=== PATIENT | male | born 1980 | race Caucasian/White ===

== ENCOUNTER → 2020-01-26 14:44 | Outpatient (BNVA) | payer OTHER, SELFPAY | PROVIDERS: Visit Provider Physician Assistant Medical | DX: Z13.89 Encounter for screening for other disorder (principal) | CPT/HCPCS: 99213 ==

== ENCOUNTER → 2020-02-23 14:45 | Outpatient (BNVA) | payer OTHER, SELFPAY | PROVIDERS: PCP Family Medicine; Visit Provider Physician Assistant Medical | DX: M54.42 Lumbago with sciatica, left side (principal) | CPT/HCPCS: 99213 ==

== ENCOUNTER 2020-02-26 09:47 | Outpatient (REF) | payer OTHER, SELFPAY ==
[2020-02-26 11:23] LABS: Creatinine Urine 46.12 mg/dL; Microalbum/Creatinine Ratio Ur 86.7 ug/mg cr
[2020-02-26 11:37] LABS: Anion Gap 12 (12-20); Blood Urea Nitrogen 15 mg/dL (9-16); Calcium 9.1 mg/dL (8.4-10.2); Carbon Dioxide 29 mmol/L (22-29); Chloride 99 mmol/L (96-108); Cholesterol 180 mg/dL; Estimated Glomerular Filt Rate > 60; Glucose Random 236 mg/dL (60-115); HDL Cholesterol 30 mg/dL; Potassium 5.3 mmol/l (3.3-5.1); Sodium 135 mmol/L (135-145); Triglycerides 471 mg/dL
[2020-02-27 12:52] LABS: LDL Cholesterol Direct 89 mg/dL (<100)
== END 2020-02-26 09:48 | disposition home or self-care (01) ==
LOC: HO.WFDLDS 09:47
PROVIDERS: Visit Provider Family Medicine
DX: E78.2 Mixed hyperlipidemia (principal); I10 Essential (primary) hypertension
CPT/HCPCS: 80048; 80061; 82043; 83721

== ENCOUNTER 2020-03-08 09:33 | Outpatient (REF) | payer OTHER, SELFPAY ==
[2020-03-08 11:19] LABS: Anion Gap 14 (12-20); Blood Urea Nitrogen 15 mg/dL (9-16); Calcium 8.9 mg/dL (8.4-10.2); Carbon Dioxide 29 mmol/L (22-29); Chloride 98 mmol/L (96-108); Estimated Glomerular Filt Rate > 60; Glucose Fasting 197 mg/dL (60-99); Potassium 4.7 mmol/l (3.3-5.1); Sodium 136 mmol/L (135-145)
== END 2020-03-08 09:34 | disposition home or self-care (01) ==
LOC: HO.WFDLDS 09:33
PROVIDERS: Visit Provider Family Medicine
DX: E11.65 Type 2 diabetes mellitus with hyperglycemia (principal)
CPT/HCPCS: 80048

== ENCOUNTER → 2020-04-11 14:52 | Outpatient (BNVA) | payer OTHER, SELFPAY | PROVIDERS: PCP Family Medicine; Visit Provider Physician Assistant Medical | DX: M54.16 Radiculopathy, lumbar region (principal) | CPT/HCPCS: 99213 ==

== ENCOUNTER 2020-07-03 11:45 | Outpatient (REF) | payer OTHER, SELFPAY ==
--- NOTE | ~2020-07-03 | XR_ITS ---
EXAMINATION: XR HIP, LEFT CLINICAL INFORMATION: Left hip pain COMPARISON: None TECHNIQUE: Frontal view pelvis and 2 views left hip are obtained for 3 views. FINDINGS: There is no fracture, dislocation, destructive process. The SI joints and pubis are unremarkable. There is no hip joint narrowing or erosive change. There are changes which may suggest underlying neoplastic skeletal hyperostosis with risk rating from the iliac crests, superior lateral acetabular, and superior left greater trochanter. The acetabular changes may place patient at risk for femoral acetabular impingement. XR/XR hip LT w PEL1V IMPRESSION: 1. Scattered whiskering pelvis and hips which may suggest underlying diffuse idiopathic skeletal hyperostosis. 2. Spurring superior lateral acetabular may place patient at risk for femoral acetabular impingement, greater on left.
== END 2020-07-03 11:46 | disposition home or self-care (01) ==
LOC: HO.XRAY 11:45
PROVIDERS: PCP Family Medicine; Visit Provider Family Medicine
DX: M25.552 Pain in left hip (principal)
CPT/HCPCS: 73502

== ENCOUNTER → 2020-07-05 11:00 | Outpatient (BNVA) | payer OTHER, SELFPAY | PROVIDERS: PCP Family Medicine; Visit Provider Physician Assistant Medical | DX: M54.16 Radiculopathy, lumbar region (principal); S30.0XXD Contusion of lower back and pelvis, subsequent encounter; S70.01XD Contusion of right hip, subsequent encounter; W18.30XD Fall on same level, unspecified, subsequent encounter | CPT/HCPCS: 99213 ==

== ENCOUNTER → 2020-07-26 12:13 | Outpatient (BNVA) | payer OTHER, SELFPAY | PROVIDERS: PCP Family Medicine; Visit Provider Physician Assistant Medical | DX: M79.605 Pain in left leg (principal); S34.21XD Injury of nerve root of lumbar spine, subsequent encounter; X58.XXXD Exposure to other specified factors, subsequent encounter | CPT/HCPCS: 99213 ==

== ENCOUNTER → 2020-09-25 10:09 | Outpatient (BNVA) | payer OTHER, SELFPAY | PROVIDERS: PCP Family Medicine; Visit Provider Physician Assistant Medical | DX: M54.5 Low back pain (principal); M54.16 Radiculopathy, lumbar region | CPT/HCPCS: 99213 ==

== ENCOUNTER → 2020-11-22 09:25 | Outpatient (BNVA) | payer OTHER, SELFPAY | PROVIDERS: PCP Family Medicine; Visit Provider Physician Assistant Medical | DX: S34.21XD Injury of nerve root of lumbar spine, subsequent encounter (principal); X58.XXXD Exposure to other specified factors, subsequent encounter; M54.17 Radiculopathy, lumbosacral region | CPT/HCPCS: 99213 ==

== ENCOUNTER → 2021-01-22 09:16 | Outpatient (BNVA) | payer OTHER, SELFPAY | PROVIDERS: PCP Family Medicine; Visit Provider Physician Assistant Medical | DX: S34.21XD Injury of nerve root of lumbar spine, subsequent encounter (principal); X58.XXXD Exposure to other specified factors, subsequent encounter; M54.10 Radiculopathy, site unspecified | CPT/HCPCS: 99213 ==

== ENCOUNTER 2021-01-31 08:50 | Outpatient (REF) | payer OTHER, SELFPAY ==
[2021-01-31 11:03] LABS: Estimated Average Glucose 174 mg/dL; Hemoglobin A1c % 7.7 %
[2021-01-31 11:04] LABS: Alanine Aminotransferase 75 U/L (0-40); Albumin Level 4.2 g/dL (3.5-5.0); Alkaline Phosphatase 46 U/L (39-117); Anion Gap 13 (12-20); Aspartate Amino Transferase 64 U/L (5-37); Bilirubin Total 0.7 mg/dL (0.0-1.0); Blood Urea Nitrogen 11 mg/dL (9-16); Calcium 9.6 mg/dL (8.4-10.2); Carbon Dioxide 27 mmol/L (22-29); Chloride 102 mmol/L (96-108); Estimated Glomerular Filt Rate > 60; Glucose Fasting 272 mg/dL (60-99); Potassium 4.4 mmol/L (3.3-5.1); Sodium 138 mmol/L (135-145)
[2021-01-31 11:28] LABS: Microalbum/Creatinine Ratio Ur 34.5 ug/mg cr
== END 2021-01-31 08:51 | disposition home or self-care (01) ==
LOC: HO.WFDLDS 08:50
PROVIDERS: Visit Provider Family Medicine
DX: Z00.00 Encounter for general adult medical examination without abnormal findings (principal); R73.01 Impaired fasting glucose; I10 Essential (primary) hypertension; L60.0 Ingrowing nail; E11.9 Type 2 diabetes mellitus without complications
CPT/HCPCS: 36415; 80053; 82043; 83036

== ENCOUNTER 2021-02-06 07:54 | Outpatient (REF) | payer OTHER, SELFPAY ==
--- NOTE | 2021-02-06 08:15 | EMG_ITS ---
Bilateral tibial and peroneal motor studies were performed. Bilateral sural and superficial peroneal studies were performed. Tibial H-reflexes were obtained and paraspinal muscles were tested with a needle. 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 MD WENDIE Hilliard/GARCÍA / [id number]
== END 2021-02-06 07:55 | disposition home or self-care (01) ==
LOC: HO.NEURO 07:54
PROVIDERS: PCP Family Medicine; Visit Provider Family Medicine
DX: M54.16 Radiculopathy, lumbar region (principal)
CPT/HCPCS: 95886; 95911

== ENCOUNTER → 2021-02-19 08:43 | Outpatient (BNVA) | payer OTHER, SELFPAY | PROVIDERS: PCP Family Medicine; Visit Provider Physician Assistant Medical | DX: S34.21XD Injury of nerve root of lumbar spine, subsequent encounter (principal); X58.XXXD Exposure to other specified factors, subsequent encounter; M54.42 Lumbago with sciatica, left side | CPT/HCPCS: 99213 ==

== ENCOUNTER 2021-06-27 11:54 | Outpatient (REF) | payer OTHER, SELFPAY ==
[2021-06-27 13:48] LABS: Alanine Aminotransferase 76 U/L (0-40); Albumin Level 4.4 g/dL (3.5-5.0); Alkaline Phosphatase 54 U/L (39-117); Anion Gap 12 (12-20); Aspartate Amino Transferase 54 U/L (5-37); Bilirubin Total 1.1 mg/dL (0.0-1.0); Blood Urea Nitrogen 13 mg/dL (9-16); Calcium 10.5 mg/dL (8.4-10.2); Carbon Dioxide 31 mmol/L (22-29); Chloride 100 mmol/L (96-108); Estimated Glomerular Filt Rate > 60; Glucose Random 256 mg/dL (60-115); Potassium 4.4 mmol/L (3.3-5.1); Sodium 139 mmol/L (135-145); Total Protein 7.5 g/dL (6.5-8.0)
[2021-06-27 14:07] LABS: Prostate Specific Antigen Scr 0.27 ng/mL (<0.05-4.0)
== END 2021-06-27 11:55 | disposition home or self-care (01) ==
LOC: HO.WFDLDS 11:54
PROVIDERS: Visit Provider Family Medicine
DX: Z12.5 Encounter for screening for malignant neoplasm of prostate (principal); R74.8 Abnormal levels of other serum enzymes
CPT/HCPCS: 36415; 80053; 84153

== ENCOUNTER → 2021-07-10 13:52 | Outpatient (BNVA) | payer OTHER, SELFPAY | PROVIDERS: PCP Family Medicine; Referring Provider Family Medicine; Visit Provider Physician Assistant | DX: Z13.89 Encounter for screening for other disorder (principal) ==

== ENCOUNTER → 2021-07-15 09:36 | Outpatient (BNVA) | payer OTHER, SELFPAY | PROVIDERS: PCP Family Medicine; Referring Provider Family Medicine; Visit Provider Physician Assistant Surgical | DX: E66.01 Morbid (severe) obesity due to excess calories (principal); Z68.41 Body mass index [BMI] 40.0-44.9, adult | CPT/HCPCS: 99202 ==

== ENCOUNTER 2021-07-18 08:20 | Outpatient (REF) | payer OTHER, SELFPAY ==
--- NOTE | ~2021-07-18 | FL_ITS ---
EXAMINATION: XR FLUOROSCOPY UPPER GI WITH AIR CLINICAL INFORMATION: Morbid/severe obesity due to excess calories. COMPARISON: None TECHNIQUE: Routine upper GI air-contrast study in upright and lying position. FINDINGS: Following oral administration of thick barium and effervescent granules there is normal propagation of bolus from the oral cavity through the pharynx, esophagus into stomach without obstruction, narrowing or stricture. The course, caliber and peristalsis of the stomach, duodenal bulb and the sweep are normal. There are multiple small erosive changes seen within the stomach suspicious for hyperacidity. The mucosal pattern of the duodenal bulb and the sweep is normal. No gastroesophageal reflux or hiatal hernia seen. FLUOROSCOPY TIME: 1.5 minutes DOSE AREA PRODUCT: 48.996 uGy-m2 (microgray-meter squared) FL/FL upper GI w air IMPRESSION: Findings suspicious of gastric erosions throughout the stomach. No duodenal ulceration seen. No gastroesophageal reflux or hiatal hernia.
--- NOTE | ~2021-07-18 | XR_ITS ---
EXAMINATION: XR CHEST CLINICAL INFORMATION: Morbid/severe obesity. COMPARISON: None TECHNIQUE: 2 views of the chest were obtained. FINDINGS: No significant abnormality is noted involving the heart, lungs, mediastinum, bony thorax or soft tissues. XR/XR chest 2V IMPRESSION: Unremarkable chest examination.
== END 2021-07-18 08:21 | disposition home or self-care (01) ==
LOC: HO.XRAY 08:20
PROVIDERS: Visit Provider Surgery
DX: E66.01 Morbid (severe) obesity due to excess calories (principal)
CPT/HCPCS: 71046; 74246

== ENCOUNTER 2021-07-23 09:13 | Outpatient (REF) | payer OTHER, SELFPAY ==
--- NOTE | ~2021-07-23 | US_ITS ---
EXAMINATION: US COMPLETE ABDOMEN WITH LIVER ELASTOGRAPHY CLINICAL INFORMATION: Morbid/severe obesity due to excess calories. COMPARISON: None. TECHNIQUE: Real-time imaging of the abdominal viscera. Noninvasive ultrasound liver fibrosis assessment is performed using Lilia ElastPQ point quantification shear wave elastography (2D-SWE) with a C5-2 MHz transducer. Multiple elastography samples are obtained. FINDINGS: PANCREAS: The pancreas is obscured by overlying gas. ABDOMINAL AORTA: The proximal, middle, and distal aortic segments are normal in caliber. INFERIOR VENA CAVA: The IVC is obscured by overlying gas. LIVER: The liver demonstrates normal size, contour and increased echogenicity. No focal lesion or intrahepatic biliary duct dilatation. The right lobe measures 1.57 cm in length. The left lobe is suboptimally visualized due to overlying gas. It measures 0.40 cm in length. Portal flow is hepatopedal. Shear wave liver elastography median stiffness is 1.57 m/s (reference: normal median stiffness is 1.3 m/s or less). IQR/median stiffness to assess sampling precision is 0.40 (reference: good quality data set is IQR/median stiffness of 0.15 or less). GALLBLADDER: Normal. The gallbladder is physiologically distended without evidence of stones, sludge, polyps, wall thickening or pericholecystic fluid. COMMON BILE DUCT: Normal in caliber measuring 0.5 cm in diameter. RIGHT KIDNEY: There is a dromedary hump along the lateral cortex. No hydronephrosis. No renal calculi or focal parenchymal lesions. The kidney measures 13.3 cm in maximum dimension. LEFT KIDNEY: Normal. No hydronephrosis. No renal calculi or focal parenchymal lesions. The kidney measures 13.4 cm in maximum dimension. SPLEEN: Normal. The spleen measures 15.8 cm in maximum dimension. FREE FLUID: None. US/US abdomen comp w elastography IMPRESSION: 1. Hepatic steatosis without focal lesion. 2. Liver elastography: Median liver stiffness 1.57 cm/second corresponding to cACLD ruled out. REFERENCE: Society of Radiologists in Ultrasound Liver Stiffness Thresholds (2019): LIVER STIFFNESS THRESHOLDS: *Liver Stiffness equal or less than 1.3 m/s: High probability of being normal. *Liver Stiffness less than 1.7 m/s: In the absence of other known clinical signs, rules out compensated advanced chronic liver disease. *Liver Stiffness 1.7-2.1 m/s: Suggestive of compensated advanced chronic liver disease but need further test for confirmation. *Liver Stiffness over 2.1 m/s: Rules in compensated advanced chronic liver disease. *Liver Stiffness over 2.4 m/s: Suggestive of clinically significant portal hypertension. QUALITY OF DATA SET: *IQR/Median value equal or less than 0.15 implies a quality data set. *IQR/Median value over 0.15 implies a poor quality data set. SIGNIFICANT CHANGE FROM PRIOR EXAM: Significant change if liver stiffness measurement is 10% or greater from prior exam. OTHER CONSIDERATIONS: The stage of liver fibrosis may be overestimated in the setting of acute hepatitis, liver inflammation, elevated liver function tests, hepatic vascular congestion, obstructive cholestasis, non-fasting state, and infiltrative diseases such as amyloidosis and lymphoma. In some patients with NAFLD, the liver stiffness thresholds for compensated advanced chronic liver disease may be lower. In causes other than viral hepatitis and NAFLD, liver stiffness thresholds are not well established.
--- NOTE | 2021-07-23 10:39 | ECG_ITS ---
Test Reason : E66.91 Blood Pressure : / mmHG Vent. Rate : 074 BPM Atrial Rate : 074 BPM P-R Int : 162 ms QRS Dur : 116 ms QT Int : 406 ms P-R-T Axes : 046 046 072 degrees QTc Int : 450 ms Normal sinus rhythm Nonspecific T wave abnormality Abnormal ECG No previous ECGs available Referred By: Momo Orosco Electronically Signed By:FERMIN ENCINAS
[2021-07-23 11:02] LABS: MANUAL DIFF FLAG NO
[2021-07-23 11:13] LABS: Basophils Absolute Auto 0.1 X10*3/uL (0.0-0.2); Basophils Percent Auto 0.6 % (0-2); Eosinophils Absolute Auto 0.2 X10*3/uL (0.0-0.4); Eosinophils Percent Auto 1.7 % (0-4); Hematocrit 45.9 % (42.0-52.0); Hemoglobin 15.5 g/dl (14.0-18.0); Imm Gran Abs Auto 0.01 X10*3/uL (0.00-0.03); Imm Gran Pct Auto 0.1 % (0.0-0.4); Lymphocytes Percent Auto 23.7 % (20-40); Mean Corpuscular HGB Conc 33.8 g/dl (31.0-36.0); Mean Corpuscular Hemoglobin 31.2 pg (27.0-33.0); Mean Corpuscular Volume 92.4 fL (80.0-98.0); Mean Platelet Volume 10.1 fL (9.4-12.4); Monocytes Absolute Auto 0.7 X10*3/uL (0.1-1.2); Monocytes Percent Auto 7.9 % (2-11); Neutrophils Absolute Auto 5.7 x10*3/uL (2.0-8.3); Platelet Count 208 X10*3/uL (160-400); Red Blood Count 4.97 X10*6/uL (4.60-5.80); Red Cell Distribution Width 13.2 % (11.0-16.0); White Blood Count 8.6 X10*3/uL (4.8-10.8)
[2021-07-23 12:44] LABS: Ferritin 341 ng/mL (20-250); TSH reflex Free T4 1.55 uIU/mL (0.32-4.0); Vitamin D 25-OH Total 34.3 ng/mL (>30)
[2021-07-23 12:50] LABS: Folate 17.2 ng/mL (> or = 4.0); Vitamin B12 503 pg/mL (200-900)
[2021-07-23 12:55] LABS: Estimated Average Glucose 148 mg/dL; Hemoglobin A1c % 6.8 %
[2021-07-23 13:10] LABS: Alanine Aminotransferase 109 U/L (0-40); Albumin Level 4.7 g/dL (3.5-5.0); Alkaline Phosphatase 50 U/L (39-117); Anion Gap 15 (12-20); Aspartate Amino Transferase 77 U/L (5-37); Bilirubin Total 1.6 mg/dL (0.0-1.0); Blood Urea Nitrogen 18 mg/dL (9-16); C Reactive Protein 0.39 mg/dL (< or = 0.50); Calcium 10.7 mg/dL (8.4-10.2); Carbon Dioxide 26 mmol/L (22-29); Chloride 103 mmol/L (96-108); Cholesterol 183 mg/dL; Estimated Glomerular Filt Rate > 60; Glucose Random 149 mg/dL (60-115); HDL Cholesterol 29 mg/dL; Iron 124 mcg/dL (45-160); LDL Cholesterol Calculated 92 mg/dl; Percent Iron Saturation 32 % (15-50); Potassium 4.9 mmol/L (3.3-5.1); Sodium 139 mmol/L (135-145); Total Iron Binding Capacity 383 mcg/dL (228-428); Triglycerides 310 mg/dL; Unsaturated Iron Binding 259 ug/dL
[2021-07-24 12:06] LABS: Calcium (PTHI) 10.5 mg/dL (8.6-10.3); PTHI 30 pg/mL (16-77)
[2021-07-27 13:05] LABS: Vitamin B1 12 nmol/L (8-30)
[2021-07-28 15:57] LABS: Zinc 87 mcg/dL (60-130)
[2021-07-29 00:57] LABS: Vitamin A 61 mcg/dL (38-98)
== END 2021-07-23 09:14 | disposition home or self-care (01) ==
LOC: HO.US 09:13
PROVIDERS: Absent Provider Physician Assistant Surgical; PCP Family Medicine; Visit Provider Family Medicine
DX: E66.01 Morbid (severe) obesity due to excess calories (principal)
CPT/HCPCS: 36415; 76705; 76981; 80053; 80061; 82306; 82607; 82728; 82746; 83036; 83540; 83970; 84425; 84443; 84590; 84630; 85025; 86140; 93005

== ENCOUNTER 2021-07-24 14:32 | Day surgery (SDC) | payer OTHER, SELFPAY ==
--- NOTE | 2021-07-23 19:46 | MHC.SHP ---
Pre-Procedural Eval Section A Date of Service: 07/23/21 The patient is an INPATIENT: No The History & Physical has been completed within 30 days and I have reviewed it.: Yes Section B Chief Complaint: Gastritis without bleeding Relevant Family History (Specify if Yes): No Relevant Social History: None Present Medications: None Medical History: No relevant PMH History of Previous Operations: No relevant previous surgery Allergies: Allergies Allergy/AdvReac Type Severity Reaction Status Date / Time No Known Allergies Allergy Verified 07/15/21 09:44 Review of Systems Sugical H&P ROS: Negative: Constitution, Cardiovascular, Respiratory, Neurological, Psychiatric, Hem-Onc, Allergic/Immunologic, Gastrointestinal, Genitourinary, Musculoskeletal, Integumentary, Endocrine and Eyes/Ears/Nose/Throat Exam Surgical H&P Exam: Normal: HEENT, Normal: Heart, Normal: Lungs, Normal: Extremities, Normal: Abdomen, Normal: Skin and Normal: Neurological Plan Diagnosis/Plan: Unchanged (EGD to assess the abnormal findings of recent UGI. Risks of bleeding and perforation were discussed with the patient. He is in agreement with the plan.) I have reviewed the history and physical and performed a pertinent physical examination on my patient. No changes have occurred unless specified.
--- NOTE | 2021-07-24 13:22 | PM.OP ---
Brief Operative Note Date of Service: 07/24/21 Pre-op diagnosis: Abnormal UGI, gastric erosions Post-op diagnosis: same Procedure: PROCEDURE DATE: 07/24/2021 PREOPERATIVE DIAGNOSIS: Abnormal UGI, gastric erosions POSTOPERATIVE DIAGNOSIS: ?Same as above. 1) small hiatal hernia, 2) no erosions PROCEDURE: Towsymey-[id number]-dbwjamokvrmh with biopsies Surgeon: ?Red Correa M.D.. Ph.D. Teletype Clerk: None ? Anesthesia: IV sedation Estimated blood loss: ?Minimal FINDINGS AND PROCEDURE: ? OPERATIVE INDICATIONS: ?The patient is a 41 year old male who is evaluated for bariatric surgery. During his preoperative work-up an UGI was performed which was suggestive of multiple gastric erosions. Based on this information I recommended an upper endoscopy to evaluate the findings of the UGI. Risks and complications of the surgery were discussed with the patient in advance particularly the possibility of perforation or bleeding that may require surgical intervention. The patient understood the risks and was in agreement with the plan. ? PROCEDURE: After informed consent was obtained by the patient, the patient was ?transferred to the Operating Room and was placed in the supine position.? After successful induction of IV sedation, a mouth block was inserted and the patient was placed in the left lateral decubitus position. An upper endoscopy was performed next, the oropharynx and esophagus appeared within the normal limits. There was a small 1-2cm hiatal hernia. The z-line was smooth. Two biopsies were obtained from the distal esohagus 2-3 cm proximal to the GE junction and from the GE junction. The stomach was entered and it appeared to be of normal size. There was no gastritis. Retroflexion was performed and the gastric fundus was normal. A biopsy was obtained from the gastric fundus. There was no stricture or ulcer. Biopsy was also obtained from the distal antrum. No significant bleeding was noted from any of the biopsy sites. The scope was then advanced into the duodenum which appeared to be normal as well. No erosions were noted anywhere. At that point the duodenum ?and the sleeve were decompressed and the scope was withdrawn from the patient's mouth. The patient extubated and was transferred in stable condition to the Recovery Room for further care. I was present and performed all steps of the procedure. There were no residents to assist with this case. Red Correa M.D., Ph.D. Surgeon: Franky Correa MD Anesthesia: MAC Was an Teletype Clerk used for this Procedure?: No Estimated blood loss (mL): 0 IV fluids (mL): 400 Urine output (mL): 0 (No Mercer to record) Pathology: other (1) GEJ x2, distal esophagus x2, gastric fundus x1, antrum x1) Condition: stable Disposition: PACU
[2021-07-24 14:53] VITALS: BP 128/80; PULSE 86; RESP 18; TEMP 36.1; O2SAT 96; BMI 41.1
[2021-07-24] MEDS: Lactated Ringers 1,000 ML 80 ML IVCONT (15:07)
[2021-07-24 15:49] LABS: Glucose, Whole Blood 115 mg/dL (60-115)
[2021-07-24 16:18] VITALS: BP 99/59; PULSE 81; RESP 20; TEMP 36.5; O2SAT 98
[2021-07-24 16:35] VITALS: BP 111/70; PULSE 74; RESP 20; TEMP 36.5; O2SAT 95
== END 2021-07-24 16:52 | disposition home or self-care (01) ==
LOC: HO.SSS 14:33
PROVIDERS: PCP Family Medicine; Visit Provider Surgery
PROC: 0DJ08ZZ Inspection of Upper Intestinal Tract, Via Natural or Artificial Opening Endoscopic (ICD-10-PCS; CPT 43235; principal; 2021-07-24 15:30)
DX: K29.70 Gastritis, unspecified, without bleeding (principal); K44.9 Diaphragmatic hernia without obstruction or gangrene; E66.01 Morbid (severe) obesity due to excess calories; Z68.41 Body mass index [BMI] 40.0-44.9, adult; Z83.3 Family history of diabetes mellitus; F17.290 Nicotine dependence, other tobacco product, uncomplicated
CPT/HCPCS: 43239; 82947; 88305; 88342; 90791

== ENCOUNTER → 2021-08-04 07:59 | Outpatient (BNVA) | payer OTHER, SELFPAY | PROVIDERS: PCP Family Medicine; Visit Provider Dietitian, Registered | DX: E66.01 Morbid (severe) obesity due to excess calories (principal); E11.9 Type 2 diabetes mellitus without complications | CPT/HCPCS: 97802 ==

== ENCOUNTER → 2021-08-12 13:30 | Outpatient (BNVA) | payer OTHER, SELFPAY | PROVIDERS: PCP Family Medicine; Visit Provider Counselor Mental Health | DX: F50.81 Binge eating disorder (principal); F33.9 Major depressive disorder, recurrent, unspecified; E66.01 Morbid (severe) obesity due to excess calories | CPT/HCPCS: 90834 ==

== ENCOUNTER → 2021-08-25 08:18 | Outpatient (BNVA) | payer OTHER, SELFPAY | PROVIDERS: PCP Family Medicine; Referring Provider Physician Assistant Surgical; Visit Provider Dietitian, Registered | DX: E66.9 Obesity, unspecified (principal); Z68.39 Body mass index [BMI] 39.0-39.9, adult; Z71.3 Dietary counseling and surveillance | CPT/HCPCS: 97803 ==

== ENCOUNTER → 2021-08-27 10:30 | Outpatient (BNVA) | payer OTHER, SELFPAY | PROVIDERS: PCP Family Medicine; Visit Provider Counselor Mental Health | DX: F50.81 Binge eating disorder (principal); F33.9 Major depressive disorder, recurrent, unspecified; E66.01 Morbid (severe) obesity due to excess calories | CPT/HCPCS: 90834 ==

== ENCOUNTER 2021-09-09 18:30 | Outpatient (REF) | payer OTHER, SELFPAY | END 2021-09-09 18:31 | disposition home or self-care (01) | LOC: HO.LNP 18:30 | PROVIDERS: Visit Provider Family Medicine | DX: Z20.822 Contact with and (suspected) exposure to COVID-19 (principal); J06.9 Acute upper respiratory infection, unspecified | CPT/HCPCS: U0003; U0005 ==

== ENCOUNTER → 2021-09-10 10:38 | Outpatient (BNVA) | payer OTHER, SELFPAY | PROVIDERS: PCP Family Medicine; Visit Provider Counselor Mental Health | DX: F33.9 Major depressive disorder, recurrent, unspecified (principal); E66.01 Morbid (severe) obesity due to excess calories | CPT/HCPCS: 90834 ==

== ENCOUNTER → 2021-09-15 08:15 | Outpatient (BNVA) | payer OTHER, SELFPAY | PROVIDERS: PCP Family Medicine; Visit Provider Surgery | DX: Z13.89 Encounter for screening for other disorder (principal) ==

== ENCOUNTER → 2021-09-24 10:30 | Outpatient (BNVA) | payer OTHER, SELFPAY | PROVIDERS: PCP Family Medicine; Visit Provider Counselor Mental Health | DX: F50.81 Binge eating disorder (principal); F33.9 Major depressive disorder, recurrent, unspecified; E66.01 Morbid (severe) obesity due to excess calories | CPT/HCPCS: 90834 ==

== ENCOUNTER → 2021-10-08 10:00 | Outpatient (BNVA) | payer OTHER, SELFPAY | PROVIDERS: PCP Family Medicine; Visit Provider Counselor Mental Health | DX: F50.81 Binge eating disorder (principal); F33.9 Major depressive disorder, recurrent, unspecified; E66.01 Morbid (severe) obesity due to excess calories | CPT/HCPCS: 90834 ==

== ENCOUNTER → 2021-10-22 10:30 | Outpatient (BNVA) | payer OTHER, SELFPAY | PROVIDERS: PCP Family Medicine; Visit Provider Counselor Mental Health | DX: F50.81 Binge eating disorder (principal); F33.9 Major depressive disorder, recurrent, unspecified; E66.01 Morbid (severe) obesity due to excess calories | CPT/HCPCS: 90834 ==

== ENCOUNTER 2021-10-31 | Outpatient (REF) | payer OTHER, SELFPAY ==
[2021-10-28 08:55] LABS: MANUAL DIFF FLAG NO
[2021-10-28 09:17] LABS: Basophils Percent Auto 0.4 % (0-2); Eosinophils Absolute Auto 0.1 X10*3/uL (0.0-0.4); Eosinophils Percent Auto 1.3 % (0-4); Hematocrit 44.7 % (42.0-52.0); Hemoglobin 14.9 g/dl (14.0-18.0); Imm Gran Abs Auto 0.02 X10*3/uL (0.00-0.03); Imm Gran Pct Auto 0.3 % (0.0-0.4); Lymphocytes Absolute Auto 2.4 X10*3/uL (1.2-4.9); Lymphocytes Percent Auto 33.9 % (20-40); Mean Corpuscular HGB Conc 33.3 g/dl (31.0-36.0); Mean Corpuscular Hemoglobin 30.8 pg (27.0-33.0); Mean Corpuscular Volume 92.5 fL (80.0-98.0); Mean Platelet Volume 10.1 fL (9.4-12.4); Monocytes Absolute Auto 0.6 X10*3/uL (0.1-1.2); Monocytes Percent Auto 7.9 % (2-11); Neutrophils Percent Auto 56.2 % (45-73); Platelet Count 211 X10*3/uL (160-400); Red Blood Count 4.83 X10*6/uL (4.60-5.80); Red Cell Distribution Width 12.9 % (11.0-16.0); White Blood Count 7.1 X10*3/uL (4.8-10.8)
[2021-10-28 09:22] LABS: Prothrombin Time 11.7 SEC (10.0-13.1)
[2021-10-28 09:24] LABS: Partial Thromboplastin Time 43.4 SEC (24.1-38.0)
[2021-10-28 09:33] LABS: Estimated Average Glucose 103 mg/dL; Hemoglobin A1c % 5.2 %
[2021-10-28 09:47] LABS: Alanine Aminotransferase 22 U/L (0-40); Albumin Level 4.8 g/dL (3.5-5.0); Alkaline Phosphatase 47 U/L (39-117); Anion Gap 12 (12-20); Aspartate Amino Transferase 19 U/L (5-37); Bilirubin Total 0.9 mg/dL (0.0-1.0); Blood Urea Nitrogen 25 mg/dL (9-16); C Reactive Protein 0.21 mg/dL (< or = 0.50); Calcium 9.9 mg/dL (8.4-10.2); Carbon Dioxide 28 mmol/L (22-29); Chloride 103 mmol/L (96-108); Cholesterol 176 mg/dL; Estimated Glomerular Filt Rate > 60; Glucose Random 113 mg/dL (60-115); HDL Cholesterol 27 mg/dL; LDL Cholesterol Calculated 110 mg/dl; Potassium 5.3 mmol/L (3.3-5.1); Sodium 138 mmol/L (135-145); Triglycerides 198 mg/dL
[2021-10-28 10:13] LABS: TSH reflex Free T4 2.22 uIU/mL (0.32-4.0)
[2021-10-28 10:45] LABS: Insulin 15 uU/mL (2-29)
[2021-10-28 16:11] VITALS: BMI 38.0
--- NOTE | 2021-10-29 | ECG_ITS ---
Test Reason : PRE-OP Blood Pressure : / mmHG Vent. Rate : 071 BPM Atrial Rate : 071 BPM P-R Int : 166 ms QRS Dur : 114 ms QT Int : 400 ms P-R-T Axes : 040 041 051 degrees QTc Int : 434 ms Normal sinus rhythm Nonspecific T wave abnormality Abnormal ECG When compared with ECG of 23-JUL-2021 10:42, No significant change was found Referred By: Marge Rain Electronically Signed By:Juancho Borrego
--- NOTE | 2021-10-29 13:47 | P.CONAN_ITS ---
HPI - Anesthesia Eval Consult details Narrative: 41yo M for Gastrectomy Sleeve PMFSH Active Problems Active Problems: All Active Problems (Updated 10/28/21 @ 16:20 by Teetee Richardson, RN) Annual physical exam (Acute) Essential hypertension (Acute) Obesity (Acute) BMI greater than 40 (Acute) Elevated triglycerides with high cholesterol (Acute) Low HDL (under 40) (Acute) Diabetes type 2, uncontrolled (Acute) Back pain with left-sided sciatica (Acute) Seborrheic dermatitis of scalp (Acute) Diabetes type 2, controlled (Acute) Left hip pain (Acute) Ingrown toenail (Acute) Anxiety (Acute) Elevated liver enzymes (Acute) GERD (gastroesophageal reflux disease) (Acute) Screening for prostate cancer (Acute) Morbid obesity (Acute) Binge-eating disorder, moderate (Acute) Major depressive disorder, recurrent, unspecified (Acute) Neuropathy (Acute) Hyperlipidemia (Acute) Past Medical History Medical History (Updated 10/29/21 @ 13:48 by Marge Rain NP) Anxiety Depression Diabetes type 2, uncontrolled Essential hypertension Hiatal hernia Hx of renal calculi Hyperlipidemia Low back pain Neuropathy Family History Family History (Updated 10/21/21 @ 09:16 by Frieda Dennison) Mother Diabetes Kidney problem Carpal tunnel syndrome Chronic knee pain after total replacement of knee joint Depression Father No problems noted. Brother Depression Family history of problems with anesthesia: No Surgical History Surgical History (Updated 10/28/21 @ 16:09 by Teetee Richardson, RED) History of esophagogastroduodenoscopy (EGD) History of Problems with Anesthesia: No Social History Social History Housing: Apartment Are you a primary healthcare technician to a significant other at home: No Do you presently have visiting nurse or other home services: No Alcohol intake: current Alcohol intake frequency: a few times a week Patient Tobacco Use Status: Former Tobacco user Quit Date: 2013 Tobacco use type: Cigarette Years Smoked: since ' e-Cigarette/Vaping Use: Never Used Second Hand Smoke Exposure: No service: Yes Current occupational status: employed Current occupational exposures/hazards: No Cognitive needs: No Hearing needs: No Vision needs: No Narrative Narrative: No recent illness No CP/SOB with exercise >4 mets Meds Allergies Allergy/AdvReac Type Severity Reaction Status Date / Time No Known Allergies Allergy Verified 10/28/21 16:10 Exam Exam Date and Time: October 29, 2021 1347 Height,Weight and Vital Signs: Height 6 ft 4 in Weight 141.974 kg Pertinent Lab Results Pertinent Lab Results: Laboratory Tests 10/28/21 10/28/21 10/28/21 08:50 08:54 08:54 WBC 7.1 RBC 4.83 Hgb 14.9 Hct 44.7 MCV 92.5 MCH 30.8 MCHC 33.3 RDW 12.9 Plt Count 211 MPV 10.1 Immature Gran % (Auto) 0.3 Neut % (Auto) 56.2 Lymph % (Auto) 33.9 [place] % (Auto) 7.9 Eos % (Auto) 1.3 Baso % (Auto) 0.4 Lymph # (Auto) 2.4 [place] # (Auto) 0.6 Eos # (Auto) 0.1 Baso # (Auto) 0.0 Abs Immat Gran (auto) 0.02 Absolute Neuts (auto) 4.0 Absolute Nucleated RBC 0.000 Nucleated RBC % (auto) 0.0 PT 11.7 INR 1.0 APTT 43.4 H Sodium Potassium Chloride Carbon Dioxide Anion Gap BUN Creatinine Estim Creat Clear Calc Estimated GFR Random Glucose Estimat Average Glucose Hemoglobin A1c % Insulin Level Calcium Total Bilirubin AST ALT Alkaline Phosphatase C-Reactive Protein Total Protein Albumin Triglycerides Cholesterol LDL Cholesterol, Calc HDL Cholesterol TSH Blood Type A Positive Antibody Screen NEGATIVE 10/28/21 10/28/21 08:54 08:54 WBC RBC Hgb Hct MCV MCH MCHC RDW Plt Count MPV Immature Gran % (Auto) Neut % (Auto) Lymph % (Auto) [place] % (Auto) Eos % (Auto) Baso % (Auto) Lymph # (Auto) [place] # (Auto) Eos # (Auto) Baso # (Auto) Abs Immat Gran (auto) Absolute Neuts (auto) Absolute Nucleated RBC Nucleated RBC % (auto) PT INR APTT Sodium 138 Potassium 5.3 H Chloride 103 Carbon Dioxide 28 Anion Gap 12 BUN 25 H Creatinine 1.07 Estim Creat Clear Calc TNP Estimated GFR > 60 Random Glucose 113 Estimat Average Glucose 103 Hemoglobin A1c % 5.2 Insulin Level 15 Calcium 9.9 D Total Bilirubin 0.9 AST 19 D ALT 22 Alkaline Phosphatase 47 C-Reactive Protein 0.21 Total Protein 8.0 Albumin 4.8 Triglycerides 198 Cholesterol 176 LDL Cholesterol, Calc 110 HDL Cholesterol 27 TSH 2.22 Blood Type Antibody Screen Narrative Narrative: EKG 10/2021 Vent. Rate : 071 BPM ? ? Atrial Rate : 071 BPM ?? P-R Int : 166 ms? QRS Dur : 114 ms ? ? QT Int : 400 ms ? ? ? P-R-T Axes : 040 041 051 degrees ?? QTc Int : 434 ms ? Normal sinus rhythm Nonspecific T wave abnormality Abnormal ECG When compared with ECG of 23-JUL-2021 10:42, No significant change was found Airway Mallampati Class: III TM Dist: >3cm Neck ROM: Full Loose/Missing/Broken Teeth: Yes (Missing R lower) Heart: RRR Lungs: CTAB Assessment and Plan Assessment Anesthesia Assessment: Anesthesia Plan Discussed and PAT Visit Final Anesthetic Review Family History of Problems with Anesthesia: No History of Problems with Anesthesia: No
[2021-10-29 13:59] VITALS: BMI 38.0
[2021-10-29 14:05] VITALS: BP 114/66; PULSE 77; RESP 16; O2SAT 97
[2021-10-29 15:18] LABS: Anion Gap 12 (12-20); Carbon Dioxide 26 mmol/L (22-29); Chloride 105 mmol/L (96-108); Potassium 5.3 mmol/L (3.3-5.1); Sodium 138 mmol/L (135-145)
[2021-10-30 13:49] LABS: COVID-19 Test Negative (Negative); IDNOW Serial# 16C4AD1C
--- NOTE | 2021-10-31 10:23 | PHA.MEDREC ---
Pharmacy Consult ? Medication Reconciliation Pharmacy has completed the medication reconciliation. Reviewed med rec done by Teetee Richardson
[2021-10-31 10:51] VITALS: BP 113/62; PULSE 73; RESP 16; TEMP 36.4; O2SAT 97
== END 2021-10-31 10:03 | disposition home or self-care (01) ==
LOC: HO.PAT
PROVIDERS: Nurse Practitioner; Physician Assistant Surgical; PCP Family Medicine; Visit Provider Surgery
DX: Z01.818 Encounter for other preprocedural examination (principal); E66.01 Morbid (severe) obesity due to excess calories; E11.65 Type 2 diabetes mellitus with hyperglycemia; E11.42 Type 2 diabetes mellitus with diabetic polyneuropathy; E78.5 Hyperlipidemia, unspecified; R74.8 Abnormal levels of other serum enzymes
CPT/HCPCS: 36415; 80051; 80053; 80061; 83036; 83525; 84443; 85025; 85610; 85730; 86140; 86850; 86900; 86901; 87635; 93005; 99202; J0131; J0690

== ENCOUNTER 2021-11-05 12:01 | Inpatient (IN) | payer OTHER, SELFPAY ==
--- NOTE | 2021-11-04 09:00 | HO.ANESPROP2 ---
Documented by User: Marge Rain NP 11/04/21 09:10 HPI - Anesthesia Eval Consult details Narrative: 41yo M for Gastrectomy Sleeve,EGD,Possible diaphragmatic hernia,possible ventral hernia,possible open Case reviewed with Dr Leticia GOODE Active Problems Active Problems: All Active Problems (Updated 10/29/21 @ 13:48 by Marge Rain NP) Diabetes type 2, uncontrolled (Acute) Annual physical exam (Acute) Obesity (Acute) BMI greater than 40 (Acute) Elevated triglycerides with high cholesterol (Acute) Low HDL (under 40) (Acute) Back pain with left-sided sciatica (Acute) Seborrheic dermatitis of scalp (Acute) Diabetes type 2, controlled (Acute) Left hip pain (Acute) Ingrown toenail (Acute) Elevated liver enzymes (Acute) GERD (gastroesophageal reflux disease) (Acute) Screening for prostate cancer (Acute) Morbid obesity (Acute) Binge-eating disorder, moderate (Acute) Major depressive disorder, recurrent, unspecified (Acute) Neuropathy (Acute) Hyperlipidemia (Acute) Past Medical History Medical History Anxiety Depression Diabetes type 2, uncontrolled Essential hypertension Hiatal hernia Hx of renal calculi Hyperlipidemia Low back pain Neuropathy Family History Family History Mother Diabetes Kidney problem Carpal tunnel syndrome Chronic knee pain after total replacement of knee joint Depression Father No problems noted. Brother Depression Family history of problems with anesthesia: No Surgical History Surgical History History of esophagogastroduodenoscopy (EGD) History of Problems with Anesthesia: No Social History Social History Housing: Apartment Are you a primary doggy daycare activities director to a significant other at home: No Do you presently have visiting nurse or other home services: No Alcohol intake: current Alcohol intake frequency: a few times a week Patient Tobacco Use Status: Former Tobacco user Quit Date: 2013 Tobacco use type: Cigarette Years Smoked: since ' e-Cigarette/Vaping Use: Never Used Second Hand Smoke Exposure: No Use of substances other than those prescribed or required for medical reasons: No Currently Displaying Signs/Symptoms of Drug Intoxication Withdrawal: No Are you DNR?: No Advance Directives: No Advance Directives Information Provided: No Recently lost weight without trying: No How much weight loss: 24-33 pounds Nutrition Risks: No Nutritional Risk service: Yes Current occupational status: employed Current occupational exposures/hazards: No Cognitive needs: No Hearing needs: No Vision needs: No Meds Allergies Allergy/AdvReac Type Severity Reaction Status Date / Time No Known Allergies Allergy Verified 10/28/21 16:10 Exam Exam Date and Time: November 04, 2021 0900 Height,Weight and Vital Signs: Height 6 ft 4 in Weight 141.974 kg Pertinent Lab Results Pertinent Lab Results: Laboratory Tests ? 10/28/21 10/28/21 10/28/21 ? 08:50 08:54 08:54 WBC ? ?7.1 ? RBC ? ?4.83 ? Hgb ? ?14.9 ? Hct ? ?44.7 ? MCV ? ?92.5 ? MCH ? ?30.8 ? MCHC ? ?33.3 ? RDW ? ?12.9 ? Plt Count ? ?211 ? MPV ? ?10.1 ? Immature Gran % (Auto) ? ?0.3 ? Neut % (Auto) ? ?56.2 ? Lymph % (Auto) ? ?33.9 ? [place] % (Auto) ? ?7.9 ? Eos % (Auto) ? ?1.3 ? Baso % (Auto) ? ?0.4 ? Lymph # (Auto) ? ?2.4 ? [place] # (Auto) ? ?0.6 ? Eos # (Auto) ? ?0.1 ? Baso # (Auto) ? ?0.0 ? Abs Immat Gran (auto) ? ?0.02 ? Absolute Neuts (auto) ? ?4.0 ? Absolute Nucleated RBC ? ?0.000 ? Nucleated RBC % (auto) ? ?0.0 ? PT ? ? ?11.7 INR ? ? ?1.0 APTT ? ? ?43.4 H Sodium ? ? ? Potassium ? ? ? Chloride ? ? ? Carbon Dioxide ? ? ? Anion Gap ? ? ? BUN ? ? ? Creatinine ? ? ? Estim Creat Clear Calc ? ? ? Estimated GFR ? ? ? Random Glucose ? ? ? Estimat Average Glucose ? ? ? Hemoglobin A1c % ? ? ? Insulin Level ? ? ? Calcium ? ? ? Total Bilirubin ? ? ? AST ? ? ? ALT ? ? ? Alkaline Phosphatase ? ? ? C-Reactive Protein ? ? ? Total Protein ? ? ? Albumin ? ? ? Triglycerides ? ? ? Cholesterol ? ? ? LDL Cholesterol, Calc ? ? ? HDL Cholesterol ? ? ? TSH ? ? ? Blood Type ?A Positive ? ? Antibody Screen ?NEGATIVE ? ? ? 10/28/21 10/28/21 ? 08:54 08:54 WBC ? ? RBC ? ? Hgb ? ? Hct ? ? MCV ? ? MCH ? ? MCHC ? ? RDW ? ? Plt Count ? ? MPV ? ? Immature Gran % (Auto) ? ? Neut % (Auto) ? ? Lymph % (Auto) ? ? [place] % (Auto) ? ? Eos % (Auto) ? ? Baso % (Auto) ? ? Lymph # (Auto) ? ? [place] # (Auto) ? ? Eos # (Auto) ? ? Baso # (Auto) ? ? Abs Immat Gran (auto) ? ? Absolute Neuts (auto) ? ? Absolute Nucleated RBC ? ? Nucleated RBC % (auto) ? ? PT ? ? INR ? ? APTT ? ? Sodium ?138 ? Potassium ?5.3 H ? Chloride ?103 ? Carbon Dioxide ?28 ? Anion Gap ?12 ? BUN ?25 H ? Creatinine ?1.07 ? Estim Creat Clear Calc ?TNP ? Estimated GFR ?> 60 ? Random Glucose ?113 ? Estimat Average Glucose ? ?103 Hemoglobin A1c % ? ?5.2 Insulin Level ?15 ? Calcium ?9.9? D ? Total Bilirubin ?0.9 ? AST ?19? D ? ALT ?22 ? Alkaline Phosphatase ?47 ? C-Reactive Protein ?0.21 ? Total Protein ?8.0 ? Albumin ?4.8 ? Triglycerides ?198 ? Cholesterol ?176 ? LDL Cholesterol, Calc ?110 ? HDL Cholesterol ?27 ? TSH ?2.22 ? Blood Type ? ? Antibody Screen ? ? Narrative Narrative: EKG 10/2021 Vent. Rate : 071 BPM ? ? Atrial Rate : 071 BPM ?? P-R Int : 166 ms? QRS Dur : 114 ms ? ? QT Int : 400 ms ? ? ? P-R-T Axes : 040 041 051 degrees ?? QTc Int : 434 ms ? Normal sinus rhythm Nonspecific T wave abnormality Abnormal ECG When compared with ECG of 23-JUL-2021 10:42, No significant change was found Airway Mallampati Class: III TM Dist: >3cm Neck ROM: Full Loose/Missing/Broken Teeth: Yes (Missing R lower) Heart: RRR Lungs: CTAB Assessment and Plan Assessment Anesthesia Assessment: Anesthesia Plan Discussed and PAT Visit Final Anesthetic Review Family History of Problems with Anesthesia: No History of Problems with Anesthesia: No Documented by User: Renny Garcias MD 11/05/21 16:54 PMFSH Past Medical History Medical History Anxiety Depression Diabetes type 2, uncontrolled Essential hypertension Hiatal hernia Hx of renal calculi Hyperlipidemia Low back pain Neuropathy Family History Family History Mother Diabetes Kidney problem Carpal tunnel syndrome Chronic knee pain after total replacement of knee joint Depression Father No problems noted. Brother Depression Surgical History Surgical History History of esophagogastroduodenoscopy (EGD) Social History Social History Housing: Apartment Are you a primary doggy daycare activities director to a significant other at home: No Do you presently have visiting nurse or other home services: No Alcohol intake: current Alcohol intake frequency: a few times a week Patient Tobacco Use Status: Former Tobacco user Quit Date: 2013 Tobacco use type: Cigarette Years Smoked: since e-Cigarette/Vaping Use: Never Used Second Hand Smoke Exposure: No Use of substances other than those prescribed or required for medical reasons: No Currently Displaying Signs/Symptoms of Drug Intoxication Withdrawal: No Are you DNR?: No Advance Directives: No Advance Directives Information Provided: No Recently lost weight without trying: No How much weight loss: 24-33 pounds Nutrition Risks: No Nutritional Risk service: Yes Current occupational status: employed Current occupational exposures/hazards: No Cognitive needs: No Hearing needs: No Vision needs: No Meds Allergies Allergy/AdvReac Type Severity Reaction Status Date / Time No Known Allergies Allergy Verified 10/28/21 16:10 Assessment and Plan Assessment Anesthesia Assessment: Chart Reviewed Final Anesthetic Review NPO: Yes ASA Class: III Final Preanesthetic Review: Meds/Allgs Chart Reviewed, Consent Obtained/Reviewed and Anes Risks/Benef Reviewed Patient Risk: Intermediate Procedure Risk: Intermediate Anesthetic Plan Anesthetic Plan: GA Disposition: Standard PACU
[2021-11-04 14:43] LABS: COVID-19 Test Negative (Negative); IDNOW Serial# 16C4AD1C
[2021-11-05] VITALS (19 sets, daily range): BP systolic 114–160; BP diastolic 70–95; PULSE 79–99; RESP 14–18; TEMP 36.1–37.3; O2SAT 93–99; BMI 37.8
--- NOTE | ~2021-11-05 | XR_ITS ---
EXAMINATION: XR ABDOMEN KUB CLINICAL INDICATION: Bronchi in the OR. COMPARISON: None TECHNIQUE: AP view of the abdomen. FINDINGS: There is scattered gas seen in colon. There is no radiopaque metallic foreign body seen in the abdomen. The soft tissues are normal. No organomegaly. XR/XR KUB IMPRESSION: No radiopaque metallic foreign body seen in the abdomen on the visualized provided images.
[2021-11-05] MEDS: Lactated Ringers 1,000 ML 100 ML IVCONT ×3 (06:39→23:02)
[2021-11-05] MEDS: Heparin Sodium,Porcine 5,000 UNIT/ML VIAL 5000 UNIT SUBCUT ×2 (06:40→17:24)
--- NOTE | 2021-11-05 06:50 | MHC.SHP ---
Pre-Procedural Eval Section A Date of Service: 11/05/21 The patient is an INPATIENT: Yes The History & Physical has been completed within 30 days and I have reviewed it.: Yes Section B Chief Complaint: obesity Allergies: Allergies Allergy/AdvReac Type Severity Reaction Status Date / Time No Known Allergies Allergy Verified 10/28/21 16:10 Plan I have reviewed the history and physical and performed a pertinent physical examination on my patient. No changes have occurred unless specified.
--- NOTE | 2021-11-05 06:59 | P.OP_ITS ---
Operative Note Operative Note Date of Service: 11/05/21 Narrative: Preop diagnosis: Morbid obesity, presenting BMI of 42.3 and weight of 347 lb with type 2 diabetes, PRESCOTT, hypertension and back pain and possible need for back surgery after weight loss Postop diagnosis: Same Procedure: Esophagogastroscopy, laparoscopic sleeve gastrectomy and laparoscopic gastropexy. Surgeon: Fito Duarte MD Numerologist: Barb Davenport PA-C Anesth: GET EBL: Specimen: portion of stomach with fundus Indications: The patient year old gentleman who earlier this year was dealing with type 2 diabetes, requiring 2 medications with a hemoglobin A1c of 6.8; hypertension, PRESCOTT, morbid obesity, hyperlipidemia and back pain that may require surgical intervention. The patient states his neurosurgeon recommended weight loss. When he entered our bariatric program his weight was 347 lb and his BMI 42.3. After proper diet and increased activity, his last evaluation in the office showed a BMI of 38.6 and weight of 317 lb. He presented with failed medical weight loss and morbid obesity with the related comorbidities as described that have negatively impact his quality of life and possible spine surgery. In addition, data regarding increased morbidity and mortality from COVID-19 infection in obese patients is a modifiable risk factor. We discussed bariatric surgery options including sleeve gastrectomy and gastric bypass versus continued medical management. I reviewed the inherent risks of sleeve gastrectomy which include, but are not limited to: Bleeding that could require another operation or blood transfusion; the inherent risks of transfusion reaction infectious disease from blood transfusions; the risk of staple line leaks that could cause sepsis, multi-system organ failure and ; the risk of mesenteric or deep vein thrombosis of the lower extremities that could cause a fatal pulmonary embolism was reviewed; the risk of GERD that could require conversion to gastric bypass was discussed; the risk of recurrent hiatal hernia, especially in the setting of weight regain was reviewed. The risk of weight regain if maladaptive eating and sedentary behavior continue was discussed. The importance of proper diet and increased activity to augment surgical weight loss and the fact that no operation would result in effective weight loss in the setting of poor dietary choices and sedentary behavior were discussed at length and apparently understood. The patient seemed understand the risks and was given the option of a 2nd opinion or continued medical weight loss. The patient had the option of having a beam builder present and declined this option. While the patient demonstrated the required preoperative 10% weight loss of our program, current data demonstrates that this weight loss is likely is not sustainable given the patient's history and bariatric surgery is recommended. Procedure: The patient was identified in the preoperative holding area by myself and again in the operating suite by myself and the team. Patient was placed supine on the operating table. Safety straps were utilized and a footboard utilized. The patient was induced in general endotracheal anesthesia administered with excellent effect. An appropriate time-out was performed. On table EGD was performed by myself using an Olympus 160 gastroscope. The scope is advanced per os taking care to avoid the endotracheal tube. After intubating the esophagus, the scope was carefully advanced into the stomach and the stomach inflated. The anterior, posterior, lesser curve and fundus were all examined. The scope was advanced to the antrum and grossly noted to be normal. The scope was then used to deflate the stomach. Next, a gastric lavage tube was inserted by myself and left in the distal esophagus. Following upper endoscopy & 36 Fr. lavage tube placement, I scrubbed to join the operative team. The patient's abdomen was then widely prepped and draped in the usual manner for surgery using chlorhexidine. Antibiotics per protocol were administered by Anesthesia. After infiltrating preemptive local in the skin and subcutaneous tissues in the left subcostal space, a stab incision was made sharply and the Veress needle inserted without incident. Appropriate drop test was performed then a pneumoperitoneum of 15 mmHg was obtained using carbon dioxide. Opening pressures were 15mm Hg . After attempting replacement of the Veress needle without satisfactory opening pressures of under 15 mmHg, I elected to perform an Rviera open cutdown in the epigastrium midline approximately 3 in from the xiphoid. Next, a 5 mm 45 degree scope was used to access the abdomen in the supraumbilical location in the midline. In examining the patient's left upper quadrant, the Veress needle had not penetrated the peritoneal and there was no evidence of injury. Upon entering, the obturator was removed and the abdomen explored. The bowel and deep structures were examined for injury from the trocar and none identified. Next, using preemptive local, additional 5 mm trocars were placed under direct laparoscopic vision. The patient was then positioned in reverse Trendelenburg and the liver retractor deployed through the right lateral 5 mm trocar and secured. Dissection was begun along the greater curvature using the 5 mm [place] LigaSure for hemostasis. Dissection was then carried towards the pylorus to 3-4 cm from the pylorus and retro gastric adhesions lysed. The gastroesophageal fat pad was carefully mobilized taking care to avoid injury to the esophagus and stomach and dissection carried towards the short gastrics taking care to avoid injury to the spleen and splenic artery. The diaphragmatic hiatus was carefully examined for a hernia and none was present. Next, the lavage tube was advanced by anesthesia under direct vision and laparoscopic guidance and positioned in the antrum using laparoscopic graspers to serve as a guide for a stapled sleeve gastrectomy. Stapling was performed with Selltag-MOHAN stapler with a purple 45 and then orange 45 and 60 loads. The 10 mm clip pilot instructor was used to apply additional clips to the staple line. Care was taken to be sure that the sleeve laid flat and was without stricture. Once the sleeve was complete, the portion of stomach was placed in the lower abdomen to be sent for permanent section. The staple line, gastrocolic omentum, spleen and short gastric areas were all inspected for hemostasis which was found to be good. The lavage tube was withdrawn under laparoscopic vision. Next, I broke scrub perform an on-table upper endoscopy to assess the sleeve and the esophagus and stomach. The patient was returned to neutral position and the Olympus 160 gastroscope was advanced taking care to preserve the endotracheal tube. The esophagus was intubated without incident. Minimal air was insufflated and the scope advanced into the newly formed sleeve. The staple line was inspected for hemostasis and the morphology of the sleeve appeared straight with a uniform diameter. Intraoperatively, there was no evidence of staple line leak seen during laparoscopy as air was insufflated via endoscope. The scope was then used to aspirate the air from the sleeve withdrawn and removed. I then rescrubbed to return to the operative field and again inspected the field for hemostasis. The patient was again placed in reverse Trendelenburg. A gastropexy was performed using the Endo-stitch 2-0 Surgidac suture to secure the sleeve gastrectomy to the gastrocolic omentum. After final assessment for hemostasis, the patient was returned to neutral position, a Taylor used to withdraw the stomach which was sent for permanent section. The fascia of the 12 mm midline was closed using an 0 Polysorb on a suture Passer under direct laparoscopic vision. The abdomen was then deflated and all trocars removed. The suture was then tied and the skin closed with 4-0 Monocryl subcuticular sutures. The abdomen was then washed and dried, benzoin and Steri-Strips applied followed by Band-Aids. The patient tolerated the procedure well was then extubated the recover in stable condition. All sponge and instrument counts were correct x2. There was a discrepancy in the needle count with 12 noted by the RN count but only 11 packages and suture needles on the field, consequently an abdominal flat plate was used to confirm no items were in the patient's abdomen per hospital protocol. At the patient's request, I did not contact friends or family following procedure stating he would prefer to text or call them when we were done and he was recovering.
[2021-11-05 07:08] LABS: Glucose, Whole Blood 89 mg/dL (60-115)
--- NOTE | 2021-11-05 12:16 | P.DS_ITS ---
DS: Providers Provider Date of Service: 11/06/21 Date of admission: 11/05/21 12:01 Primary care physician: Patrick Mullen MD DS: Summary Hospital Course Hospital Course: ADMITTING DIAGNOSIS: morbid obesity, HTN, DN, GERD DISCHARGE DIAGNOSIS: same, s/p laparoscopic sleeve gastrectomy PAST SURGICAL HISTORY: none PROCEDURE: upper endoscopy, laparoscopic sleeve gastrectomy DISCHARGE SUMMARY: History of Present Illness: The patient is a 41 year-old man with a BMI of 42.3 kg/m2 and associated co- morbidities as described above. The patient had extensive work-up,lost 35 lbs preoperatively and was electively scheduled for laparoscopic, possible open sleeve gastrectomy and gastropexy. Risks and complications of the surgery were discussed with the patient in advance, particularly the possibility of , pulmonary embolism, anastomotic leak, bleeding, bowel injury, GERD, cardiac, renal or pulmonary complications. The patient understood all the risks and was in agreement with the surgical plan. Hospital Course: The patient underwent an uneventful laparoscopic sleeve gastrectomy with gastropexy on the day of admission. Postoperatively, the patient was transferred to the surgical floor. The patient received IV Acetaminophen and IV dilaudid for pain control. Patient was started on bariatric phase 1 diet POD #0. On postoperative day one, the patient was feeling well without nausea, vomiting, fevers, or tachycardia. The patient had some mild incisional pain and the abdomen was soft. On the morning of postoperative day one, the patient was continued on 1 ounce of water or ice every half hour. During the day, the patient did fairly well, having some incisional pain, but able to ambulate adequately and to tolerate liquids well. Since the patient is doing well, we decided that the patient was ready to be discharged. The patient was given instructions to follow-up with me next week and to call my office for any fever over 101, persistent abdominal pain, nausea, vomiting, GERD, symptoms of DVT such as calf tenderness, or leg swelling, or pulmonary embolism such as chest pain or shortness of breath. The patient was also instructed to drink 40-60 ounces of liquids per day using the 1-ounce cups. The patient had been given prescriptions for Tylenol for pain, Zofran prn for nausea, and pantoprazole and carafate previously. The patient was encouraged to ambulate and use the incentive spirometer. The patient was allowed to shower, but no baths, and encouraged to stay active at home. All of these instructions were given to the patient personally. All questions were answered and the patient understood all instructions, the instructions were also given to the patient in print. Time Spent with Patient Time attestation: Total time spent providing and/or coordinating discharge services: Discharge coordination time: Less than 30 minutes Quality: Safe Use of Opioids Does Pt have an Active Cancer Diagnosis on the Problem List?: No Quality: Stroke Does the patient have a stroke diagnosis?: No Physical Exam Vital Signs: Vital Signs: Last Vital Signs Temp 96.9 F 11/05/21 06:24 Pulse 79 11/05/21 06:24 Resp 16 11/05/21 06:24 BP 114/75 11/05/21 06:24 Pulse Ox 95 11/05/21 06:24 O2 Del Method 11/05/21 06:24 BMI result Body Mass Index 37.8 DS: Data Data Completed and Pending Labs on day of discharge: Laboratory Results - last 24 hr 11/04/21 11/05/21 11/05/21 14:15 06:46 06:50 POC Glucose 89 COVID-19 ([facility]) Negative COVID-19 Clin Com See Note Blood Type A Positive Antibody Screen NEGATIVE Discharge Plan Discharge Anticipated Discharge Date/Time: 11/06/21 10:06 Patient Disposition: Home, Self-Care Discharge Diagnosis: s/p sleeve gastrectomy Referrals: Patrick Mullen MD [Primary Care Provider] - 1 Week Discharge Medications: Continued metoprolol succinate 50 mg tablet extended release 24 hr 75 mg PO BID Qty: 270 1RF amitriptyline 50 mg tablet 50 mg PO BEDTIME Qty: 90 1RF gabapentin 300 mg capsule 300 mg PO BID Qty: 60 1RF pantoprazole 40 mg tablet,delayed release (DR/EC) 40 mg PO DAILY Qty: 30 2RF ondansetron HCl 4 mg tablet 4 mg PO Q12H Qty: 20 0RF sucralfate 100 mg/mL suspension 10 ml PO BID Qty: 400 2RF Held gemfibrozil 600 mg tablet 600 mg PO BID Qty: 180 0RF Hold Instructions: Discuss restart with Dr Gerald Brooks polyethylene glycol 3350 [Miralax] 17 gram powder in packet 17 g PO DAILY Qty: 14 0RF Rx Instructions: Mix each packet with 8oz of water and do 7 packets on 10/29/21 and another 7 packets on 10/30/21 Discharge Orders: Discharge Order (Routine); Ordered 11/06/21 Ordered By: Fito Duarte Activity on Discharge: No heavy lifting Stand Alone Forms: Patient Portal Discharge page Care Plan Goals: weight loss Health Concerns: morbid obesity Plan of Treatment: No tub baths, sex or returning to work until discussed at first post op appointment. No exercise, alcohol, tobacco or illegal drug use. Continue to use incentive spirometer hourly while awake. Walk in home for 5- 10 minutes every 2 hours during the first week. Continue phase 1 diet today and start phase 2 diet tomorrow morning. Follow all instructions in the bariatric handbook and call with any questions. 1. Please call your doctor or come back to the emergency room should any new symptoms arise. 2. You will receive a courtesy call from [facility] 24-48 hours after discharge. 3. Activity: abstain from alcohol, practice limited stair climbing, no bending, no driving, no exercise, no illicit substances, no lifting, no sex, no tub bath, no work. 4. Diet: continue 3 protein drinks per day; start with one and add another each day with a goal of 80 grams of protein/day. 5. Dressing Change/Wound Care: remove surgical dressings 11/07. Leave Steri- Strips in place. Okay to shower on Wednesday, 715 but do not soak in a tub or pool. 6. Call your doctor if: - Your temperature exceeds 101.5 F - You experience excessive pain or swelling - You have an unexpected reaction to medication - You have excessive bleeding - You experience continued vomiting/nausea - Your incision begins to separate - Your incision shows signs of infection such as increased redness, swelling, excessive pain, heat, or drainage (light blood or clear fluid is normal) 7. General instructions: No lifting greater than 5 lbs for the next 4 weeks[address] driving within 24 hours of taking narcotic pain medications. If you do not move your bowels in the next 2 days, please take milk of magnesia over the counter. Please follow the post op diet and do not advance your diet until you are seen in the office in about 2 weeks. Please walk around your home every hour or two to prevent blood clots from forming in your legs. You do not need to wake from sleeping to walk. Please sleep in a bed or couch to prevent kinking at the hips and knees. Please take your incentive spirometer (your lung evaluation specialist) home with you and use it for the next few days to prevent pneumonias. You may shower, no hot tubs, baths or swimming pools. Please call the office with any questions or concerns such as increasing abdominal pain, fever, chills, shortness of breath, chest pain, leg pain or swelling, or redness or drainage from your incisions. Do not hesitate to contact the office with any questions at . The patient's medical history has been reviewed and they are considered low risk for post op DVT and therefore DVT prophylaxis is not considered necessary. Travel after surgery was reviewed. The patient has not disclosed any travel plans during the first 30 days after surgery and they have been advised that within the first 30 days after surgery any bus, plane, train or car travel over 2 hours in duration is contraindicated due to the possibility of developing blood clots from immobility. Any travel, needs to include periods of ambulation of 10 minutes in duration every 2 hours. The patient was instructed to discuss any plans for travel during this period with their bariatric surgeon. Assessment: stable, post op sleeve gastrectomy
[2021-11-05] MEDS: fentaNYL citrate/PF 100 MCG/2 ML VIAL 50 MCG IVPUSH ×2 (12:38→12:43)
[2021-11-05] MEDS: HYDROmorphone HCl 0.5 MG/0.5 ML SYRINGE 0.25 MG IVPUSH ×5 (12:50→19:08)
[2021-11-05] MEDS: ceFAZolin Sodium/Dextrose,Iso 2 GM/50 ML PIGGYBACK IV (13:22)
[2021-11-05] MEDS: Famotidine/PF 20 MG/2 ML VIAL IVPUSH ×2 (13:34→21:10)
[2021-11-05] MEDS: ondansetron HCL 4 MG/2 ML VIAL IVPUSH ×2 (13:57→21:10)
--- NOTE | 2021-11-05 14:26 | PHA.MEDREC ---
Pharmacy Consult ? Medication Reconciliation Pharmacy has completed the medication reconciliation. Patient reported the doctor stopped his glipizide and metformin. I asked if it was just for surgery or for good. He said it was for good. Clotilde Garcia, DariaD
[2021-11-05 15:38] LABS: Hematocrit 40.2 % (42.0-52.0); Hemoglobin 13.8 g/dl (14.0-18.0)
[2021-11-05 15:47] LABS: Glucose, Whole Blood 155 mg/dL (60-115)
[2021-11-05 15:57] LABS: Anion Gap 15 (12-20); Blood Urea Nitrogen 15 mg/dL (9-16); Calcium 8.4 mg/dL (8.4-10.2); Carbon Dioxide 20 mmol/L (22-29); Chloride 106 mmol/L (96-108); Creatinine Clr Calc Pharmacy 164.3; Estimated Glomerular Filt Rate > 60; Glucose Random 167 mg/dL (60-115); Potassium 4.2 mmol/L (3.3-5.1); Sodium 137 mmol/L (135-145)
--- NOTE | 2021-11-05 16:22 | P.PNGS_ITS ---
Subjective Subjective Date of Service: 11/05/21 Interval history: The patient is arousable but somnolent. He endorses nausea but no vomiting, upper abdominal pain, but denies any lower abdominal/pelvic pain and notes his pain improves with IV pain medicine. He is too sleepy to safely be taken out of bed at this time. He denies any shortness of breath. Too somnolent for IS. Physical Exam Vital Signs: Vital Signs: Last Vital Signs Temp 97.1 F 11/05/21 15:34 Pulse 87 11/05/21 15:34 Resp 18 11/05/21 15:34 BP 150/90 H 11/05/21 15:34 Pulse Ox 93 11/05/21 15:34 O2 Del Method 11/05/21 15:34 O2 Flow Rate 3.0 11/05/21 15:34 BMI result Body Mass Index 37.8 Expected abdominal pain is present. Objective Data Active Medications Amitriptyline HCl (Amitriptyline Hcl 50 Mg Tablet) 50 mg PO BEDTIME PRN PRN Reason: Insomnia Dextrose (Dextrose 50 % 25 Gm/50 Ml Syringe) 25 gm IVPUSH Q15M PRN; Protocol PRN Reason: per Hypoglycemia Standing Ord. Famotidine (Famotidine/Pf 20 Mg/2 Ml Vial) 20 mg IVPUSH BID [facility] Last Admin: 11/05/21 13:34 Dose: 20 mg Documented By: SEAN Fentanyl (Fentanyl Citrate/Pf 100 Mcg/2 Ml Vial) 50 mcg IVPUSH Q5M PRN; Protocol PRN Reason: Pain, Severe (Pain Scale 7-10) Last Admin: 11/05/21 12:43 Dose: 50 mcg Documented By: SEAN Glucose (Glucose Gel 15 Gm Gel..Gram.) 15 gm PO Q15M PRN; Protocol PRN Reason: per Hypoglycemia Standing Ord. Heparin Sodium (Porcine) (Heparin Sodium,Porcine 5,000 Unit/Ml Vial) 5,000 unit SUBCUT Q12H [facility] Last Admin: 11/05/21 06:40 Dose: 5,000 unit Documented By: JAMMIE Hydromorphone HCl (Hydromorphone Hcl 0.5 Mg/0.5 Ml Syringe) 0.25 mg IVPUSH Q4H PRN; Protocol PRN Reason: Pain, Moderate (Pain Scale 4-6 Lactated Ringer's (Lr) 1,000 mls @ 100 mls/hr IVCONT .Q10H [facility] Last Admin: 11/05/21 16:20 Dose: Not Given Documented By: MALIK Non-Admin Reason: IV Running Lactated Ringer's (Lr) 1,000 mls @ 100 mls/hr IVCONT .Q10H [facility] Last Admin: 11/05/21 13:57 Dose: 100 mls/hr Documented By: SEAN Acetaminophen (Ofirmev) 1,000 mg in 100 mls @ 16.7 mls/hr IV .Q6H [facility] Last Admin: 11/05/21 13:26 Dose: 16.7 mls/hr Documented By: SEAN Insulin Human Lispro (Insulin Lispro 100 Unit/Ml 3 Ml Vial) 0 unit SUBCUT QIDACHS [facility]; Protocol Metoclopramide HCl (Metoclopramide Hcl 10 Mg/2 Ml Vial) 10 mg IVPUSH Q6H PRN PRN Reason: Nausea Metoprolol Succinate (Metoprolol Succinate Er 25 Mg Tab.Er.24h) 75 mg PO BID [facility]; Protocol Ondansetron HCl (Ondansetron Hcl 4 Mg/2 Ml Vial) 4 mg IVPUSH Q8H [facility] Last Admin: 11/05/21 13:57 Dose: 4 mg Documented By: SEAN Sodium Chloride (0.9 % Sodium Chloride Flush 3 Ml Syringe) 3 ml IVFLUSH QSHIFT [facility] Last Admin: 11/05/21 16:20 Dose: Not Given Documented By: MALIK Non-Admin Reason: IV Running Labs CBC & Chem 7: 11/05/21 15:28 11/05/21 15:28 Labs: Laboratory Results - last 24 hr 11/05/21 11/05/21 11/05/21 06:46 06:50 15:28 Anion Gap 15 Estim Creat Clear Calc 164.3 Estimated GFR > 60 POC Glucose 89 Random Glucose 167 H D Calcium 8.4 D Blood Type A Positive Antibody Screen NEGATIVE 11/05/21 15:43 Anion Gap Estim Creat Clear Calc Estimated GFR POC Glucose 155 H Random Glucose Calcium Blood Type Antibody Screen Procedures Date of Service Date of Service: 11/05/21 Progress Note: A&P Assessment and plan (1) S/P laparoscopic sleeve gastrectomy: Status: Acute (2) Diabetes type 2, uncontrolled: Status: Acute (3) Obesity: Status: Acute (4) BMI greater than 40: Status: Acute (5) Elevated triglycerides with high cholesterol: Status: Acute (6) Hyperlipidemia: Status: Acute (7) Binge-eating disorder, moderate: Status: Acute Plan Hemoglobin noted. Trend labs for a.m.. When the patient is more awake, out of bed and ambulate. Encourage sips of water. See orders. Please call with problems/concerns. Quality Stroke Does the patient have a stroke diagnosis?: No VTE Prior VTE?: No VTE Risk Level:: Surgical - moderate VTE Device Contraindication: N/A - Device Ordered VTE Drug Contraindication: N/A - Med Ordered
[2021-11-05] MEDS: Insulin Lispro 100 UNIT/ML 3 ML VIAL SUBCUT (16:26)
[2021-11-05] MEDS: Metoclopramide HCl 10 MG/2 ML VIAL IVPUSH (19:10)
[2021-11-05] MEDS: 0.9 % Sodium Chloride Flush 3 ML SYRINGE IVFLUSH (19:11)
[2021-11-05 19:49] LABS: Glucose, Whole Blood 149 mg/dL (60-115)
[2021-11-05] MEDS: Metoprolol Succinate ER 25 MG TAB.ER.24H 75 MG PO (21:10)
[2021-11-06 01:46] LABS: Glucose, Whole Blood 117 mg/dL (60-115)
[2021-11-06] MEDS: HYDROmorphone HCl 0.5 MG/0.5 ML SYRINGE 0.25 MG IVPUSH (02:03)
[2021-11-06 03:37] VITALS: BP 118/66; PULSE 90; RESP 18; TEMP 36.8; O2SAT 97
[2021-11-06 03:49] LABS: Glucose, Whole Blood 108 mg/dL (60-115)
[2021-11-06 05:55] LABS: MANUAL DIFF FLAG NO
[2021-11-06 05:58] LABS: Basophils Percent Auto 0.2 % (0-2); Eosinophils Percent Auto 0.2 % (0-4); Hemoglobin 12.3 g/dl (14.0-18.0); Imm Gran Abs Auto 0.03 X10*3/uL (0.00-0.03); Imm Gran Pct Auto 0.3 % (0.0-0.4); Lymphocytes Absolute Auto 1.8 X10*3/uL (1.2-4.9); Lymphocytes Percent Auto 17.8 % (20-40); Mean Corpuscular HGB Conc 33.2 g/dl (31.0-36.0); Mean Corpuscular Hemoglobin 30.8 pg (27.0-33.0); Mean Corpuscular Volume 92.7 fL (80.0-98.0); Mean Platelet Volume 10.6 fL (9.4-12.4); Monocytes Absolute Auto 0.9 X10*3/uL (0.1-1.2); Monocytes Percent Auto 9.1 % (2-11); Neutrophils Absolute Auto 7.3 x10*3/uL (2.0-8.3); Neutrophils Percent Auto 72.4 % (45-73); Platelet Count 141 X10*3/uL (160-400); Red Blood Count 3.99 X10*6/uL (4.60-5.80); Red Cell Distribution Width 13.2 % (11.0-16.0); White Blood Count 10.1 X10*3/uL (4.8-10.8)
[2021-11-06] MEDS: ondansetron HCL 4 MG/2 ML VIAL IVPUSH (06:18)
[2021-11-06] MEDS: Heparin Sodium,Porcine 5,000 UNIT/ML VIAL 5000 UNIT SUBCUT (06:18)
[2021-11-06 06:30] LABS: Anion Gap 13 (12-20); Blood Urea Nitrogen 12 mg/dL (9-16); Calcium 8.6 mg/dL (8.4-10.2); Carbon Dioxide 26 mmol/L (22-29); Chloride 105 mmol/L (96-108); Creatinine Clr Calc Pharmacy 164.3; Estimated Glomerular Filt Rate > 60; Glucose Random 96 mg/dL (60-115); Potassium 4.2 mmol/L (3.3-5.1); Sodium 140 mmol/L (135-145)
--- NOTE | 2021-11-06 06:40 | P.PNGS_ITS ---
Subjective Subjective Date of Service: 11/06/21 Patient reports: feels better Interval history: The patient denies any worsening nausea and reports he has tolerating water at 30 cc an hour. He has also had a couple of bowel movements. He reports incisional pain as to be expected but denies any chest pain, difficulty breathing or shortness of breath. He does note that his O2/nasal cannula were continued overnight because of oxygen saturations were in the low 90s. Physical Exam Vital Signs: Vital Signs: Last Vital Signs Temp 98.2 F 11/06/21 03:37 Pulse 90 11/06/21 03:37 Resp 18 11/06/21 03:37 BP 118/66 11/06/21 03:37 Pulse Ox 97 11/06/21 03:37 O2 Del Method 11/06/21 03:37 O2 Flow Rate 2 11/06/21 03:37 BMI result Body Mass Index 37.8 On exam, he is nontoxic and talkative Abdomen is obese with appropriate incisional tenderness. Objective Data Active Medications Amitriptyline HCl (Amitriptyline Hcl 50 Mg Tablet) 50 mg PO BEDTIME PRN PRN Reason: Insomnia Dextrose (Dextrose 50 % 25 Gm/50 Ml Syringe) 25 gm IVPUSH Q15M PRN; Protocol PRN Reason: per Hypoglycemia Standing Ord. Famotidine (Famotidine/Pf 20 Mg/2 Ml Vial) 20 mg IVPUSH BID [facility] Last Admin: 11/05/21 21:10 Dose: 20 mg Documented By: CONNER Fentanyl (Fentanyl Citrate/Pf 100 Mcg/2 Ml Vial) 50 mcg IVPUSH Q5M PRN; Protocol PRN Reason: Pain, Severe (Pain Scale 7-10) Last Admin: 11/05/21 12:43 Dose: 50 mcg Documented By: SEAN Glucose (Glucose Gel 15 Gm Gel..Gram.) 15 gm PO Q15M PRN; Protocol PRN Reason: per Hypoglycemia Standing Ord. Heparin Sodium (Porcine) (Heparin Sodium,Porcine 5,000 Unit/Ml Vial) 5,000 unit SUBCUT Q12H [facility] Last Admin: 11/06/21 06:18 Dose: 5,000 unit Documented By: CONNER Hydromorphone HCl (Hydromorphone Hcl 0.5 Mg/0.5 Ml Syringe) 0.25 mg IVPUSH Q4H PRN; Protocol PRN Reason: Pain, Moderate (Pain Scale 4-6 Last Admin: 11/06/21 02:03 Dose: 0.25 mg Documented By: CONNER Lactated Ringer's (Lr) 1,000 mls @ 100 mls/hr IVCONT .Q10H [facility] Last Admin: 11/05/21 23:02 Dose: 100 mls/hr Documented By: CONNER Lactated Ringer's (Lr) 1,000 mls @ 100 mls/hr IVCONT .Q10H [facility] Last Admin: 11/05/21 23:25 Dose: Not Given Documented By: CONNER Non-Admin Reason: Duplicate Order Acetaminophen (Ofirmev) 1,000 mg in 100 mls @ 16.7 mls/hr IV .Q6H [facility] Last Admin: 11/06/21 06:18 Dose: 16.7 mls/hr Documented By: CONNER Insulin Human Lispro (Insulin Lispro 100 Unit/Ml 3 Ml Vial) 0 unit SUBCUT Q4H [facility]; Protocol Last Admin: 11/06/21 04:02 Dose: Not Given Documented By: CONNER Non-Admin Reason: No Insulin Coverage Metoclopramide HCl (Metoclopramide Hcl 10 Mg/2 Ml Vial) 10 mg IVPUSH Q6H PRN PRN Reason: Nausea Last Admin: 11/05/21 19:10 Dose: 10 mg Documented By: CONNER Metoprolol Succinate (Metoprolol Succinate Er 25 Mg Tab.Er.24h) 75 mg PO BID [facility]; Protocol Last Admin: 11/05/21 21:10 Dose: 75 mg Documented By: CONNER Ondansetron HCl (Ondansetron Hcl 4 Mg/2 Ml Vial) 4 mg IVPUSH Q8H [facility] Last Admin: 11/06/21 06:18 Dose: 4 mg Documented By: CONNER Sodium Chloride (0.9 % Sodium Chloride Flush 3 Ml Syringe) 3 ml IVFLUSH QSHIFT [facility] Last Admin: 11/05/21 19:11 Dose: 3 ml Documented By: CONNER Labs CBC & Chem 7: 11/06/21 05:05 11/06/21 05:05 Labs: Laboratory Results - last 24 hr 11/05/21 11/05/21 11/05/21 06:46 06:50 15:28 MCV MCH MCHC RDW Plt Count MPV Immature Gran % (Auto) Neut % (Auto) Lymph % (Auto) [place] % (Auto) Eos % (Auto) Baso % (Auto) Lymph # (Auto) [place] # (Auto) Eos # (Auto) Baso # (Auto) Abs Immat Gran (auto) Absolute Neuts (auto) Absolute Nucleated RBC Nucleated RBC % (auto) Anion Gap 15 Estim Creat Clear Calc 164.3 Estimated GFR > 60 POC Glucose 89 Random Glucose 167 H D Calcium 8.4 D Blood Type A Positive Antibody Screen NEGATIVE 11/05/21 11/05/21 11/05/21 15:43 19:31 23:04 MCV MCH MCHC RDW Plt Count MPV Immature Gran % (Auto) Neut % (Auto) Lymph % (Auto) [place] % (Auto) Eos % (Auto) Baso % (Auto) Lymph # (Auto) [place] # (Auto) Eos # (Auto) Baso # (Auto) Abs Immat Gran (auto) Absolute Neuts (auto) Absolute Nucleated RBC Nucleated RBC % (auto) Anion Gap Estim Creat Clear Calc Estimated GFR POC Glucose 155 H 149 H 117 H Random Glucose Calcium Blood Type Antibody Screen 11/06/21 11/06/21 11/06/21 03:40 05:05 05:05 MCV 92.7 MCH 30.8 MCHC 33.2 RDW 13.2 Plt Count 141 L D MPV 10.6 Immature Gran % (Auto) 0.3 Neut % (Auto) 72.4 Lymph % (Auto) 17.8 L [place] % (Auto) 9.1 Eos % (Auto) 0.2 Baso % (Auto) 0.2 Lymph # (Auto) 1.8 [place] # (Auto) 0.9 Eos # (Auto) 0.0 Baso # (Auto) 0.0 Abs Immat Gran (auto) 0.03 Absolute Neuts (auto) 7.3 Absolute Nucleated RBC 0.000 Nucleated RBC % (auto) 0.0 Anion Gap 13 Estim Creat Clear Calc 164.3 Estimated GFR > 60 POC Glucose 108 Random Glucose 96 D Calcium 8.6 Blood Type Antibody Screen Procedures Date of Service Date of Service: 11/06/21 Progress Note: A&P Assessment and plan (1) S/P laparoscopic sleeve gastrectomy: Status: Acute (2) Diabetes type 2, uncontrolled: Status: Acute (3) Elevated triglycerides with high cholesterol: Status: Acute (4) Obesity: Status: Acute Plan The patient has been up and walking and working on incentive spirometry, carlos whitley, the concern over his lower oxygen saturation leads me to request that the staff titrate his O2 and confirm that his sats are safe for discharge. Labs are noted and stable. Will reassess for possible discharge later this morning. 0950 reassessment Patient using incentive spirometry well. Tolerating p.o.. The patient has some questions regarding his gabapentin for his back pain. He can resume this medication and will plan for discharge. Time Spent With Patient Time: Total time spent is greater than 50% in coordination of care (as documented) at patient's floor/unit and/or counseling patient: Quality Stroke Does the patient have a stroke diagnosis?: No VTE Prior VTE?: No VTE Risk Level:: Surgical - moderate VTE Device Contraindication: N/A - Device Ordered VTE Drug Contraindication: N/A - Med Ordered
[2021-11-06 07:10] VITALS: BP 145/67; PULSE 79; RESP 18; TEMP 36.4; O2SAT 96
[2021-11-06 07:15] LABS: Glucose, Whole Blood 94 mg/dL (60-115)
[2021-11-06] MEDS: Metoprolol Succinate ER 25 MG TAB.ER.24H 75 MG PO (07:19)
[2021-11-06] MEDS: Famotidine/PF 20 MG/2 ML VIAL IVPUSH (07:19)
--- NOTE | 2021-11-06 08:45 | HO.POSTANES ---
Post Anesthesia Evaluation Post Anesthesia Evaluation Vital Signs: Vital Signs Temp Pulse Resp BP Pulse Ox O2 Del Method O2 Flow Rate 11/06/21 07:10 97.6 F 79 18 145/67 H 96 Room Air 11/06/21 03:37 98.2 F 90 18 118/66 97 Nasal Cannula 2 11/05/21 23:01 99.2 F 99 18 141/70 H 98 Nasal Cannula 2 Anesthesia: General Mental Status: Sedated Pain Control: Satisfactory Nausea/Vomiting: None Hydration: Adequate Anesthesia-Related Issues: No Anes. Related Issues
--- NOTE | 2021-11-06 13:22 | MHC.CM.PN ---
EMR REVIEWED, PT ADMITTED S/P LAP SLEEVE GASTRECTOMY, CM MET W/PT WHO REPORTS HE LIVES ALONE, IS INDEP W/ALL CARE, REPORTS HE HAS A CANE HE USES AND DENIES USE OF DME, PT VERIFIES PCP IS ELLEN KOO X4, PT EDUCATED ON HCP'S AND CURRENTLY DECLINES TO COMPLETE THIS ADMISSION. D/C PLAN: HOME NO SERVICES, PT TO ARRANGE TRANSPORT
== END 2021-11-06 12:13 | disposition home or self-care (01) | DRG 403 ==
LOC: HO.SSSA 12:14 → HO.S3 13:58
PROVIDERS: Nurse Practitioner; Physician Assistant; Admitting Provider Surgery; PCP Family Medicine; Visit Provider Surgery
PROC: 0DB64Z3 Excision of Stomach, Percutaneous Endoscopic Approach, Vertical (ICD-10-PCS; CPT 43845; principal; 2021-11-05 07:30)
DX: E66.01 Morbid (severe) obesity due to excess calories (principal); E11.40 Type 2 diabetes mellitus with diabetic neuropathy, unspecified; K75.81 Nonalcoholic steatohepatitis (NASH); F32.A Depression, unspecified; M54.42 Lumbago with sciatica, left side; Z20.822 Contact with and (suspected) exposure to COVID-19; Z87.891 Personal history of nicotine dependence; I10 Essential (primary) hypertension; Z68.38 Body mass index [BMI] 38.0-38.9, adult; Z79.899 Other long term (current) drug therapy
CPT/HCPCS: 36415; 74018; 80048; 82947; 85014; 85018; 85025; 86850; 86900; 86901; 87635; 88307; 88342; C9088; J0131; J0690; J1100; J1170; J2250; J2405; J2550; J2765; J3010

== ENCOUNTER → 2021-11-12 12:30 | Outpatient (BNVA) | payer OTHER, SELFPAY | PROVIDERS: PCP Family Medicine; Visit Provider Counselor Mental Health | DX: F50.81 Binge eating disorder (principal); F33.9 Major depressive disorder, recurrent, unspecified; E66.01 Morbid (severe) obesity due to excess calories | CPT/HCPCS: 90834 ==

== ENCOUNTER 2021-12-09 12:34 | Outpatient (REF) | payer OTHER, SELFPAY ==
[2021-12-09 13:58] LABS: Alanine Aminotransferase 31 U/L (0-40); Albumin Level 4.5 g/dL (3.5-5.0); Alkaline Phosphatase 57 U/L (39-117); Anion Gap 14 (12-20); Aspartate Amino Transferase 28 U/L (5-37); Bilirubin Total 0.7 mg/dL (0.0-1.0); Blood Urea Nitrogen 20 mg/dL (9-16); Calcium 9.7 mg/dL (8.4-10.2); Carbon Dioxide 28 mmol/L (22-29); Chloride 106 mmol/L (96-108); Estimated Glomerular Filt Rate > 60; Glucose Random 102 mg/dL (60-115); Potassium 4.5 mmol/L (3.3-5.1); Sodium 143 mmol/L (135-145); Total Protein 7.4 g/dL (6.5-8.0)
== END 2021-12-09 12:35 | disposition home or self-care (01) ==
LOC: HO.WFDLDS 12:34
PROVIDERS: Visit Provider Family Medicine
DX: R74.8 Abnormal levels of other serum enzymes (principal)
CPT/HCPCS: 36415; 80053

== ENCOUNTER 2021-12-15 09:34 | Outpatient (REF) | payer OTHER, SELFPAY ==
--- NOTE | ~2021-12-15 | XR_ITS ---
EXAMINATION: X-RAY BILATERAL HIPS CLINICAL INFORMATION: Pain. COMPARISON: Abdominal radiograph 11/05/2021. TECHNIQUE: 2 views of each hip. FINDINGS: Suspect fracture of the lesser trochanter of the right femur. No other fractures. Joint alignment is anatomic. No significant soft tissue abnormality. XR/XR hip LT min 2V IMPRESSION: Questionable fracture involving the lesser trochanter of the right femur, which could be a pathologic fracture given location. Recommendation correlation with point tenderness and if clinically deemed appropriate evaluation with cross-sectional imaging.
--- NOTE | ~2021-12-15 | XR_ITS ---
EXAMINATION: X-RAY BILATERAL HIPS CLINICAL INFORMATION: Pain. COMPARISON: Abdominal radiograph 11/05/2021. TECHNIQUE: 2 views of each hip. FINDINGS: Suspect fracture of the lesser trochanter of the right femur. No other fractures. Joint alignment is anatomic. No significant soft tissue abnormality. XR/XR hip RT min 2V IMPRESSION: Questionable fracture involving the lesser trochanter of the right femur, which could be a pathologic fracture given location. Recommendation correlation with point tenderness and if clinically deemed appropriate evaluation with cross-sectional imaging.
== END 2021-12-15 09:35 | disposition home or self-care (01) ==
LOC: HO.XRAY 09:34
PROVIDERS: PCP Family Medicine; Visit Provider Family Medicine
DX: M79.605 Pain in left leg (principal); M79.604 Pain in right leg; Z87.828 Personal history of other (healed) physical injury and trauma
CPT/HCPCS: 73502

== ENCOUNTER → 2022-01-02 09:50 | Outpatient (REF) | payer OTHER, SELFPAY ==
--- NOTE | ~2022-01-02 | NM_ITS ---
EXAMINATION: NM BONE SCAN OF THE WHOLE BODY CLINICAL INFORMATION: Pain in leg. COMPARISON: No previous bone scan is available for comparison. Radiographs of the bilateral hips dated 12/15/2021 are available for comparison. TECHNIQUE: Multiple gamma scintillation camera images of the whole body were performed 2.5 hours following the intravenous administration of 45 mCi Tc-99m MDP. FINDINGS: In the head, no significant abnormalities are present. In the thoracic cage and upper extremities, there is mildly increased activity in the sternoclavicular joints bilaterally and in the right acromioclavicular joint. In the spine, no significant abnormalities are present. In the pelvis, no significant abnormalities are present. In the lower extremities, there is mildly increased activity in the patellar compartments of both knees. There is faintly increased activity in the posterior plantar surface of the left calcaneus, likely due to a mild plantar fascia ideas. There is also faintly increased activity at the calcaneal insertion site of the Achilles tendons bilaterally, likely due to an Achilles enthesopathy. No other definite bony abnormalities are noted. The urinary bladder and faint visualization of both kidneys are noted. NM/NM bone scan whole body IMPRESSION: A few minimal nonspecific abnormalities are noted as described above and these are all likely arthritic or traumatic in etiology. None of these abnormalities is strongly suspicious for metastatic disease.
== END ==
LOC: HO.NUCMED 09:50
PROVIDERS: PCP Family Medicine; Visit Provider Family Medicine
DX: M79.606 Pain in leg, unspecified (principal)
CPT/HCPCS: 78306; A9503

== ENCOUNTER → 2022-01-07 10:30 | Outpatient (BNVA) | payer OTHER, SELFPAY | PROVIDERS: PCP Family Medicine; Visit Provider Counselor Mental Health | DX: F33.9 Major depressive disorder, recurrent, unspecified (principal); E66.01 Morbid (severe) obesity due to excess calories | CPT/HCPCS: 90834 ==

== ENCOUNTER → 2022-02-13 14:07 | Outpatient (BNVA) | payer OTHER, SELFPAY | PROVIDERS: PCP Family Medicine; Visit Provider Physician Assistant Surgical | DX: E66.9 Obesity, unspecified (principal); F50.81 Binge eating disorder; I10 Essential (primary) hypertension; Z68.32 Body mass index [BMI] 32.0-32.9, adult | CPT/HCPCS: 99212 ==

== ENCOUNTER 2022-03-04 11:00 | Outpatient (RCR) | payer OTHER, SELFPAY ==
--- NOTE | 2022-01-07 11:40 | MHC.PT.EP ---
[facility] [place] Office [place] Office [place] Office [address] [place] [address] Dr Neha Dumont [address] [phone] F: [phone] F: [phone] F: [phone] F: [phone] Physical Therapy Plan of Care Date of Evaluation: Date of Surgery: LSG 11/05/21 Diagnosis: PAIN IN LEG Assessment: Pt IS 41 YO M WITH HX OF INJURY/TRAUMA WHILE IN [employer] 20 YRS AGO WITH MULTIPLE FRACTURES IN BOTH LEGS. NO SURGERIES, NO CASTING. REPORTS SOME PT AND CRUTCH USE. OVERALL HAS BEEN DOING OK UNTIL RECENT INCREASE IN ACTIVITY/EX POST GASTRIC SLEEVE SURGERY (11/05/21) WHICH HAS INCREASED R HIP/ANKLE PAIN. Pt REPORTS PAIN/PARESTHESIA L LE FROM NERVE DAMAGE FROM BACK INJURY 2 YRS AGO AT WORK (LIFT TYPE INJURY). PRESENTS WITH DECREASED HIP AND LE STRENGTH AND FLEXIBILITY WITH DECREASED CORE STRENGTH. HAS HAD PT IN PAST (2 YRS AGO) WITHOUT SIGNIF RELIEF (DID NOT CONTINUE WITH SPECIFIC EXS/STRETCHES). XRAY SHOWS PATHOLOGIC FX LESSER TUBERCLE R FEMUR (BONE SCAN RESULTS PENDING). SHOULD BENEFIT FROM PT TO ADDRESS THESE ISSUES WITH CARE OF STRETCH/STRENGTHEN MMS THAT ATTACH/ORIGINATE FROM THIS AREA Frequency and Duration: The patient will be seen 2X/WK X 4 WKS Short Term Goals: 1. INCREASED POSTURE AWARENESS AND AWARNESS HIP/BACK CARE 2. Pt TO DEMONSTRATE 2-3 TASKS WITH PROPER BODY MECH Shelter Goals: 1. I HEP WITH DC EX PLAN 2. DECREASED HIP PAIN AT LEAST 50% WITH ADLS 3. IMPROVED LEFI (52/80 AT SOC) Treatment Plan: Modalities to reduce pain, spasms and effusion. Manual therapy to restore motion and function. Therapeutic exercise to improve strength and flexibility. Neuromuscular re-education for posture and balance. Therapeutic activities to return to functional activities of daily living. Electronically signed by: TONI JUAREZ PT Please sign and return to therapist. Thank you for your referral.
--- NOTE | 2022-04-01 14:29 | MHC.PT.DC ---
[facility] [place] Office [place] Office [place] Office [address] Neha Dumont [address] [phone] F: [phone] F: [phone] F: [phone] F: [phone] Physical Therapy Discharge Report Diagnosis: PAIN IN LEG Date of Surgery: LSG 11/05/21 Date of Evaluation: 01/07/22 Date of Discharge: 04/01/22 Treatments to Date: 10 Cancellations to Date: No Shows to Date: Discharge Status: Improved Function Independent with HEP Patient Elected to Stop Discharge Summary: PER NOTE FROM NINOSKA QUICK PT, DPT ON 03/04/22 Pt expressing good carryover of home program. Pt has been encouraged to restart back at the gym and then finish up two appointments. Pt fatigued and challenged with CKC/ dynamic balance. He requires use of UE support for balance. Pt has two appts remaining in auth, has requested to use these. Pt encouraged to resume gym tasks and come back a week after to see how he is responding to transitional program. Pt CANCELLED LAST SCHEDULED APPT ON 03/18 WITHOUT FURTHER MADE [ End ] Electronically signed by: TONI JUAREZ PT Please sign and return to therapist. Thank you for your referral.
== END 2022-04-01 14:30 | disposition home or self-care (01) ==
LOC: HO.PTWFD 11:00
PROVIDERS: PCP Family Medicine; Visit Provider Family Medicine
DX: M79.606 Pain in leg, unspecified (principal)
CPT/HCPCS: 97110; 97140; 97162; 97530; 97535

== ENCOUNTER 2022-05-08 08:21 | Outpatient (REF) | payer OTHER, SELFPAY ==
[2022-05-08 09:14] LABS: MANUAL DIFF FLAG NO
[2022-05-08 10:21] LABS: Basophils Absolute Auto 0.1 X10*3/uL (0.0-0.2); Basophils Percent Auto 0.8 % (0-2); Eosinophils Absolute Auto 0.1 X10*3/uL (0.0-0.4); Eosinophils Percent Auto 1.7 % (0-4); Hematocrit 46.2 % (42.0-52.0); Hemoglobin 15.8 g/dl (14.0-18.0); Imm Gran Abs Auto 0.01 X10*3/uL (0.00-0.03); Imm Gran Pct Auto 0.1 % (0.0-0.4); Lymphocytes Absolute Auto 2.9 X10*3/uL (1.2-4.9); Lymphocytes Percent Auto 38.3 % (20-40); Mean Corpuscular HGB Conc 34.2 g/dl (31.0-36.0); Mean Corpuscular Hemoglobin 31.5 pg (27.0-33.0); Mean Platelet Volume 10.6 fL (9.4-12.4); Monocytes Absolute Auto 0.5 X10*3/uL (0.1-1.2); Neutrophils Absolute Auto 3.9 x10*3/uL (2.0-8.3); Neutrophils Percent Auto 52.1 % (45-73); Platelet Count 161 X10*3/uL (160-400); Red Blood Count 5.02 X10*6/uL (4.60-5.80); Red Cell Distribution Width 12.6 % (11.0-16.0); White Blood Count 7.6 X10*3/uL (4.8-10.8)
[2022-05-08 11:29] LABS: Anion Gap 12 (12-20); Blood Urea Nitrogen 15 mg/dL (9-16); C Reactive Protein < 0.04 mg/dL (< or = 0.50); Calcium 9.7 mg/dL (8.4-10.2); Carbon Dioxide 31 mmol/L (22-29); Chloride 105 mmol/L (96-108); Cholesterol 203 mg/dL; Estimated Glomerular Filt Rate > 60; Glucose Random 105 mg/dL (60-115); HDL Cholesterol 36 mg/dL; Iron 123 mcg/dL (45-160); LDL Cholesterol Calculated 129 mg/dl; Percent Iron Saturation 40 % (15-50); Potassium 4.4 mmol/L (3.3-5.1); Sodium 144 mmol/L (135-145); Total Iron Binding Capacity 308 mcg/dL (228-428); Triglycerides 191 mg/dL; Unsaturated Iron Binding 185 ug/dL
[2022-05-08 11:37] LABS: Estimated Average Glucose 103 mg/dL; Hemoglobin A1c % 5.2 %
[2022-05-08 11:40] LABS: Ferritin 117 ng/mL (20-250); Insulin 13 uU/mL (2-29); TSH reflex Free T4 2.78 uIU/mL (0.32-4.0); Vitamin D 25-OH Total 40.7 ng/mL (>30)
[2022-05-08 11:51] LABS: Folate 19.1 ng/mL (> or = 4.0); Vitamin B12 493 pg/mL (200-900)
[2022-05-11 13:24] LABS: Calcium (PTHI) 9.6 mg/dL (8.6-10.3); PTHI 63 pg/mL (16-77)
[2022-05-12 15:18] LABS: Zinc 90 mcg/dL (60-130)
[2022-05-14 08:43] LABS: Vitamin A 58 mcg/dL (38-98)
[2022-05-15 12:59] LABS: Vitamin B1 37 nmol/L (8-30)
== END 2022-05-08 08:22 | disposition home or self-care (01) ==
LOC: HO.LAB 08:21
PROVIDERS: PCP Family Medicine; Visit Provider Physician Assistant Surgical
DX: E66.9 Obesity, unspecified (principal); Z79.899 Other long term (current) drug therapy; Z98.84 Bariatric surgery status; Z68.33 Body mass index [BMI] 33.0-33.9, adult; Z71.3 Dietary counseling and surveillance
CPT/HCPCS: 36415; 80048; 80061; 82306; 82607; 82728; 82746; 83036; 83525; 83540; 83970; 84425; 84443; 84590; 84630; 85025; 86140; 99212

== ENCOUNTER → 2022-07-07 10:37 | Outpatient (BNVA) | payer OTHER, SELFPAY | PROVIDERS: PCP Family Medicine; Visit Provider Nurse Practitioner Family | DX: G47.30 Sleep apnea, unspecified (principal); R06.83 Snoring; R40.0 Somnolence | CPT/HCPCS: 99202 ==

== ENCOUNTER → 2022-07-23 13:42 | Outpatient (REF) | payer OTHER, SELFPAY | LOC: HO.SL 13:42 | PROVIDERS: PCP Family Medicine; Visit Provider Nurse Practitioner Family | DX: G47.30 Sleep apnea, unspecified (principal); R40.0 Somnolence; R06.83 Snoring | CPT/HCPCS: 95806 ==

== ENCOUNTER → 2022-07-27 09:39 | Outpatient (BNVA) | payer OTHER, SELFPAY | PROVIDERS: PCP Family Medicine; Visit Provider Physician Assistant Surgical ==

== ENCOUNTER → 2022-09-15 11:19 | Outpatient (BNVA) | payer OTHER, SELFPAY | PROVIDERS: PCP Family Medicine; Visit Provider Nurse Practitioner Family | DX: G47.30 Sleep apnea, unspecified (principal); R06.83 Snoring; R40.0 Somnolence | CPT/HCPCS: 99212 ==

== ENCOUNTER → 2022-09-28 08:17 | Outpatient (BNVA) | payer OTHER, SELFPAY | PROVIDERS: PCP Family Medicine; Visit Provider Anesthesiology | DX: M54.9 Dorsalgia, unspecified (principal); M51.36 Other intervertebral disc degeneration, lumbar region; M54.16 Radiculopathy, lumbar region; M47.816 Spondylosis without myelopathy or radiculopathy, lumbar region; G89.4 Chronic pain syndrome | CPT/HCPCS: 99202 ==

== ENCOUNTER 2022-11-06 08:39 | Outpatient (AMB) | payer OTHER, SELFPAY ==
--- NOTE | 2022-11-06 08:40 | A.OFFVIS_ITS ---
Intake VS Expanded 11/06/22 08:44 Height 6 ft 4 in Weight 294 lb 12.8 oz BMI 35.9 BP 104/57 L Blood Pressure Location Rt brachial Blood Pressure Position Sitting Pulse 77 Pulse Source Pulse Oximeter Temp 97.3 F Temperature Source Temporal Artery Scan Pulse Oximetry 96 Oxygen Delivery Method Room Air Body Fat 95.0 Body Fat Percentage 32.2 Free Fat Mass 199.8 Muscle Mass 190.0 Visceral Mass 17.0 Water Mass 142.4 BMR 2,781 Intake Visit Reasons: (OV) PO LSG 11/05/21 Education Administrator Required: No Allergies No Known Allergies Allergy (Verified 11/06/22 08:42) Medication List - Last Reconciled 11/06/22 by DARA Adams amitriptyline 100 mg PO BEDTIME bupropion HCl 75 mg PO BID 30 days gabapentin 400 mg PO TID 30 days meloxicam 15 mg PO DAILY 30 days metoprolol succinate ER 50 mg PO DAILY 90 days HPI HPI Comments History of Present Illness Details This?a?42?yo male who is s/p LSG without hiatal hernia repair on?11/05/21. Presents for 1 year post op visit. Weight today is 294.8 pounds, with a BMI of 35.9.? There has been a 53 pound weight loss,(initial weight 347.8 pounds) since starting the program on 07/15/21 reflecting a 15.2% total body weight loss and a weight loss of 16.4 pounds since surgery (operative weight 311.2 pounds) reflecting a 5.2% TBWL since surgery.? No complaints of nausea, emesis, abdominal pain or reflux. Reports infrequent but normal bowel movements every 1-2 days and uses stool softeners regularly.?Reports fell off track due to depression. Has BH intake next week Present meal plan includes: no meal plan Orgain pwder 2 scoops, 1-2 per day in czech yogurt w fruit snacking on nuts, dried apricots, banana, ice cream ? Exercise routine includes: walking daily 2 miles? Any post op complications: none MANDEEP: resolved DM: resolved HTN: improved Hyperlipidemia: improved GERD:?0-5 scale ??0 = no symptoms ??1 = symptoms noticeable but not bothersome 2 =symptoms bothersome but not daily ? 3 = symptoms bothersome and daily 4 = symptoms affect daily activities 5 = symptoms are incapacitating, unable to do daily activities ? How bad is the heartburn: 0 ? Heartburn while lying down: 0 ? Heartburn when standing up: 0 ? Heartburn after meals: 0 ? Does heartburn change your diet: 0 ? Does heartburn wake you up from sleep: 0 ? Do you have difficulty swallowin ? Do you have pain with swallowin ? If you take medicine for your reflux, does this affect your daily life: 0 Satisfaction with present condition - satisfied or not satisfied: not satisfied due to depression [facility] Medical History Annual physical exam Anxiety Back pain with left-sided sciatica Binge-eating disorder, moderate BMI greater than 40 Depression Diabetes type 2, uncontrolled Elevated liver enzymes Essential hypertension Hiatal hernia Hx of renal calculi Hyperlipidemia Ingrown toenail Left hip pain Low back pain Low HDL (under 40) Major depressive disorder, recurrent, unspecified Neuropathy Screening for prostate cancer Seborrheic dermatitis of scalp Surgical History History of esophagogastroduodenoscopy (EGD) Family History Mother Diabetes Kidney problem Carpal tunnel syndrome Chronic knee pain after total replacement of knee joint Depression Father No problems noted. Brother Depression Social History Housing: Apartment Are you a primary customer care assistant to a significant other at home: No Do you presently have visiting nurse or other home services: No Alcohol intake: current Alcohol intake frequency: holidays/special occasions only Patient Tobacco Use Status: Former Tobacco user Quit Date: 2013 Tobacco use type: Cigarette Years Smoked: since ' e-Cigarette/Vaping Use: Never Used Second Hand Smoke Exposure: No service: Yes Current occupational status: employed Current occupational exposures/hazards: No Cognitive needs: No Hearing needs: No Vision needs: No Physical Exam Const General: healthy appearing and no acute distress Resp Effort & Inspection: normal respiratory effort Auscultation: clear to auscultation bilaterally Cardio Rate: regular rate Rhythm: regular rhythm GI Auscultation: normal bowel sounds Extrem General: Yes normal to inspection Assessment & Plan Assessment & Plan (1) Obesity: Code(s): E66.9 - Obesity, unspecified Plan: Not ready to have a new plan. Encouraged to text me when ready Encouraged to return to the gym and not eat ice cream Encouraged to do 2 shakes per day w protein milk, 1 yogurt and small meal with 8 forks protein and 8 forks veg RTC 6 months or sooner if needed Orders: Orders Vitamin B12 and Folate Today E66.9 - Obesity, unspecified, I10 - Essential (primary) hypertension, Z98.84 - Bariatric surgery status C Reactive Protein Today E66.9 - Obesity, unspecified, I10 - Essential (primary) hypertension, Z98.84 - Bariatric surgery status Ferritin Today E66.9 - Obesity, unspecified, I10 - Essential (primary) hypertension, Z98.84 - Bariatric surgery status Hemoglobin A1c Today E66.9 - Obesity, unspecified, I10 - Essential (primary) hypertension, Z98.84 - Bariatric surgery status Insulin Today E66.9 - Obesity, unspecified, I10 - Essential (primary) hypertension, Z98.84 - Bariatric surgery status IRON PROFILE Today E66.9 - Obesity, unspecified, I10 - Essential (primary) hypertension, Z98.84 - Bariatric surgery status Lipid Panel Today E66.9 - Obesity, unspecified, I10 - Essential (primary) hypertension, Z98.84 - Bariatric surgery status PTHI Today E66.9 - Obesity, unspecified, I10 - Essential (primary) hypertension, Z98.84 - Bariatric surgery status TSH reflex Free T4 Today E66.9 - Obesity, unspecified, I10 - Essential (primary) hypertension, Z98.84 - Bariatric surgery status Vitamin A Today E66.9 - Obesity, unspecified, I10 - Essential (primary) hypertension, Z98.84 - Bariatric surgery status Vitamin B1 Today E66.9 - Obesity, unspecified, I10 - Essential (primary) hypertension, Z98.84 - Bariatric surgery status Vitamin D 25-OH Total Today E66.9 - Obesity, unspecified, I10 - Essential (primary) hypertension, Z98.84 - Bariatric surgery status Zinc Today E66.9 - Obesity, unspecified, I10 - Essential (primary) hypertension, Z98.84 - Bariatric surgery status Complete Blood Count Auto Diff Today E66.9 - Obesity, unspecified, I10 - Ess ential (primary) hypertension, Z98.84 - Bariatric surgery status Basic Metabolic Panel Today E66.9 - Obesity, unspecified, I10 - Essential (primary) hypertension, Z98.84 - Bariatric surgery status Coding Level of Care Code Est Pt Level 4 (09482) Diagnoses Obesity E66.9 Time Spent (min) 40
[2022-11-06 08:44] VITALS: BP 104/57; PULSE 77; TEMP 36.3; O2SAT 96; BMI 35.9
== END 2022-11-06 09:27 | disposition home or self-care (01) ==
PROVIDERS: PCP Family Medicine; Visit Provider Physician Assistant Surgical
DX: E66.9 Obesity, unspecified (principal); Z68.35 Body mass index [BMI] 35.0-35.9, adult; Z90.3 Acquired absence of stomach [part of]; Z98.84 Bariatric surgery status
CPT/HCPCS: 99214

== ENCOUNTER 2022-11-06 08:39 | Outpatient (REF) | payer OTHER, SELFPAY ==
[2022-11-06 09:48] LABS: MANUAL DIFF FLAG NO
[2022-11-06 10:53] LABS: Basophils Absolute Auto 0.1 X10*3/uL (0.0-0.2); Basophils Percent Auto 0.8 % (0-2); Eosinophils Absolute Auto 0.1 X10*3/uL (0.0-0.4); Eosinophils Percent Auto 1.9 % (0-4); Hematocrit 46.9 % (42.0-52.0); Hemoglobin 15.8 g/dl (14.0-18.0); Imm Gran Abs Auto 0.01 X10*3/uL (0.00-0.03); Imm Gran Pct Auto 0.2 % (0.0-0.4); Lymphocytes Absolute Auto 2.4 X10*3/uL (1.2-4.9); Lymphocytes Percent Auto 37.7 % (20-40); Mean Corpuscular HGB Conc 33.7 g/dl (31.0-36.0); Mean Corpuscular Hemoglobin 30.8 pg (27.0-33.0); Mean Corpuscular Volume 91.4 fL (80.0-98.0); Mean Platelet Volume 10.7 fL (9.4-12.4); Monocytes Absolute Auto 0.5 X10*3/uL (0.1-1.2); Monocytes Percent Auto 7.7 % (2-11); Neutrophils Absolute Auto 3.3 x10*3/uL (2.0-8.3); Neutrophils Percent Auto 51.7 % (45-73); Platelet Count 146 X10*3/uL (160-400); Red Blood Count 5.13 X10*6/uL (4.60-5.80); White Blood Count 6.3 X10*3/uL (4.8-10.8)
[2022-11-06 12:05] LABS: Anion Gap 13 (12-20); Blood Urea Nitrogen 17 mg/dL (9-16); C Reactive Protein < 0.10 mg/dL (< or = 0.50); Calcium 9.7 mg/dL (8.4-10.2); Carbon Dioxide 30 mmol/L (22-29); Chloride 104 mmol/L (96-108); Cholesterol 229 mg/dL; Estimated Glomerular Filt Rate > 60; Glucose Random 124 mg/dL (60-115); HDL Cholesterol 42 mg/dL; Iron 125 mcg/dL (45-160); LDL Cholesterol Calculated 140 mg/dl; Percent Iron Saturation 39 % (15-50); Potassium 4.4 mmol/L (3.3-5.1); Sodium 143 mmol/L (135-145); Total Iron Binding Capacity 321 mcg/dL (228-428); Triglycerides 238 mg/dL; Unsaturated Iron Binding 196 ug/dL
[2022-11-06 12:09] LABS: Ferritin 102 ng/mL (20-250); Vitamin D 25-OH Total 34.6 ng/mL (>30)
[2022-11-06 12:35] LABS: Estimated Average Glucose 105 mg/dL; Hemoglobin A1c % 5.3 %
[2022-11-06 12:43] LABS: Folate 10.1 ng/mL (> or = 4.0); Insulin 22 uU/mL (2-29); Vitamin B12 367 pg/mL (200-900)
[2022-11-09 15:24] LABS: Calcium (PTHI) 9.5 mg/dL (8.6-10.3); PTHI 134 pg/mL (16-77)
[2022-11-11 06:43] LABS: Zinc 89 mcg/dL (60-130)
[2022-11-11 15:48] LABS: Vitamin B1 8 nmol/L (8-30)
[2022-11-12 19:23] LABS: Vitamin A 69 mcg/dL (38-98)
== END 2022-11-06 08:40 | disposition home or self-care (01) ==
LOC: HO.LAB 08:39
PROVIDERS: PCP Family Medicine; Visit Provider Physician Assistant Surgical
DX: E66.9 Obesity, unspecified (principal); I10 Essential (primary) hypertension; Z98.84 Bariatric surgery status
CPT/HCPCS: 36415; 80048; 80061; 82306; 82607; 82728; 82746; 83036; 83525; 83540; 83970; 84425; 84443; 84590; 84630; 85025; 86140; 99212

== ENCOUNTER 2022-11-11 08:26 | Outpatient (AMB) | payer OTHER, SELFPAY ==
--- NOTE | 2022-11-11 08:38 | MHC.PC.OV ---
Vital Signs 11/11/22 08:39 Height 6 ft 4 in Weight 303 lb BMI 36.9 BP 110/68 Blood Pressure Location Lt brachial Position Sitting Pulse 80 Pulse Source Pulse Oximeter Pulse Oximetry (%) 97 Oxygen Delivery Method Room Air Intake Visit Reasons: f/u LE pain Intake Note: Patient is here for following up on lower extremity pain, and rash on his right leg, and tinnitis. Patient would like to go over blood work. Allergies No Known Allergies Allergy (Verified 11/11/22 08:42) Tobacco use date assessed: 11/11/22 Dental Screening Dental Screen Date: 11/11/22 Did you have a dental visit in the last 12 months?: No Did you have a dental problem in the last 6 months where you did not have access to dental care?: No Was dental information given to patient?: No HPI f/u LE pain HPI Details 42 y/o male presents to f/u back pain with radiation to legs. Had increased his gabapentin and referred him back to his neurosurgeon. Also started him on physical therapy again. He reports he has a MRI appointment the first week of November. He reports depression/anxiety. He reports his bupropion at 75mg b.i.d. has not been helping him. He states he has been on bupropion 300mg before. He reports ongoing hearing changes and tinnitus. He states he has not started physical therapy yet. He reports ongoing fungal infection of his skin. [facility] Medical History Annual physical exam Anxiety Back pain with left-sided sciatica Binge-eating disorder, moderate BMI greater than 40 Depression Diabetes type 2, uncontrolled Elevated liver enzymes Essential hypertension Hiatal hernia Hx of renal calculi Hyperlipidemia Ingrown toenail Left hip pain Low back pain Low HDL (under 40) Major depressive disorder, recurrent, unspecified Neuropathy Screening for prostate cancer Seborrheic dermatitis of scalp Surgical History History of esophagogastroduodenoscopy (EGD) Family History Mother Diabetes Kidney problem Carpal tunnel syndrome Chronic knee pain after total replacement of knee joint Depression Father No problems noted. Brother Depression Social History (Reviewed 11/11/22 @ 08:43 by DARIO Sebastian Housing: Apartment Are you a primary assistant child care teacher to a significant other at home: No Do you presently have visiting nurse or other home services: No Alcohol intake: current Alcohol intake frequency: holidays/special occasions only Patient Tobacco Use Status: Former Tobacco user Quit Date: 2013 Tobacco use type: Cigarette Years Smoked: since e-Cigarette/Vaping Use: Never Used Second Hand Smoke Exposure: No service: Yes Current occupational status: employed Current occupational exposures/hazards: No Cognitive needs: No Hearing needs: No Vision needs: No Questionnaire Thrive Questionnaire Date Thrive assessed: 11/10/21 RUDY-7 AMB Questionnaire RUDY-7 Date RUDY - 7 assessed: 07/15/22 Source: Developed by Drs. Iglesia Aguilera, Hayde Noonan, Sree Ornelas and colleagues, with an educational jenny from [employer]. Review of Systems Const Denies chills, Denies fatigue, Denies fever(s), Denies headache(s) and Denies weakness ENT Denies dizziness, Denies headache(s) and Reports tinnitus Card Denies chest pain, Denies lightheadedness, Denies dyspnea and Denies other (Palpitations) Resp Denies cough, Denies dyspnea, Denies wheezing and Denies other ( shortness of breath) Musc Denies numbness and Denies tingling Neuro Denies dizziness, Denies headache(s), Denies numbness, Denies tingling, Denies paresthesias and Denies weakness Psych Reports anxiety and Reports depression Endo Denies fatigue Aller/Immun Denies wheezing Physical exam (Primary Care) Vital Signs: Last Vital Signs Pulse 80 11/11/22 08:39 BP 110/68 11/11/22 08:39 Pulse Ox 97 11/11/22 08:39 Oxygen Delivery Method Room Air 11/11/22 08:39 BMI result Body Mass Index 36.9 Tobacco/Smoking Status: Tobacco use Status Tobacco use date assessed 11/11/22 11/11/22 08:43 Patient Tobacco Use Status Former Tobacco user 11/11/22 08:43 Tobacco use type Cigarette 11/11/22 08:43 e-Cigarette/Vaping Use Never Used 11/11/22 08:43 Thrive Assessment: Date of Thrive Assessment Date Thrive assessed 11/10/21 11/11/22 08:43 Const General: no acute distress and well developed Nutritional Appearance: well nourished Orientation/consciousness: patient oriented x3 HENMT Head: Yes normocephalic and Yes atraumatic Eyes General: appearance normal, both eyes and all related structures Pupils: Equal, round and reactive pupils present EOM: EOMs intact bilaterally Resp Effort & Inspection: normal respiratory effort Auscultation: clear to auscultation bilaterally Cardio Rate: regular rate Rhythm: regular rhythm Heart sounds: S1 normal heart sound present, S2 normal heart sound present, no gallops, no murmurs and no rubs Neuro General: patient oriented x3 and gait normal Cranial nerves: Yes Equal, round and reactive pupils present Psych Affect: normal affect Assessment and Plan Assessment & Plan (1) Radiculopathy, lumbar region: Code(s): M54.16 - Radiculopathy, lumbar region Plan: Ongoing back pain and radiation in to bilateral lower extremities He has an upcoming MRI scheduled and referral to neuro surgery, Dr. Mart whom he has seen before. He is also seeing pain management and they are looking in to injection therapy Gabapentin increase at last visit has helped a little Will try lidocaine patches Had referred him to physical therapy but he did not realize he needed to schedule this. He will try schedule this today. (2) Back pain: Code(s): M54.9 - Dorsalgia, unspecified Plan: As above He also has meloxicam which he is not sure is helping (3) Chronic pain syndrome: Code(s): G89.4 - Chronic pain syndrome Plan: As above He is also taking amitriptyline which helps with pain Also experiences depression and this may be contributing to chronic pain as well. Increasing his bupropion today (4) Morbid obesity: Code(s): E66.01 - Morbid (severe) obesity due to excess calories Plan: Discussed weight loss and trying to get regular exercise. Encouraged decreased portion sizes (5) Change in hearing: Code(s): H91.90 - Unspecified hearing loss, unspecified ear Plan: Worsening the tinnitus He has an appointment for audiology. Given that this continues to worsen however I have referred him to ENT (6) Anxiety with depression: Code(s): F41.8 - Other specified anxiety disorders Plan: He is taking amitriptyline and bupropion He notes worsening depression He had been on a daily dose of 300 mg of bupropion in the past so I am increasing his medication to 150 mg b.i.d. to help with depression. (7) Fungal infection of skin: Code(s): B36.9 - Superficial mycosis, unspecified Plan: He has ketoconazole and can continue this (8) Neuropathic pain: Code(s): M79.2 - Neuralgia and neuritis, unspecified Plan: As above, will give him a script For Lidoderm patches Also on amitriptyline Orders: Referrals Ear/Nose/Throat Referral H91.90 - Unspecified hearing loss, unspecified ear, H93.13 - Tinnitus, bilateral Medications: New bupropion HCl 300 mg PO QAM 30 days 30 tabs 3RF lidocaine 5% (Lidoderm) leave on most painful area for up to 12 hrs 2 patches topical DAILY 30 days 60 ea 0RF M47.816 - Spondylosis without myelopathy or radiculopathy, lumbar region, M79.2 - Neuralgia and neuritis, unspecified Refilled meloxicam 15 mg PO DAILY 30 days 30 tabs 2RF M47.816 - Spondylosis without myelopathy or radiculopathy, lumbar region gabapentin 400 mg PO TID 90 caps 2RF 30 days M47.816 - Spondylosis without myelopathy or radiculopathy, lumbar region Coding Level of Care Code Est Pt Level 4 (57323) Diagnoses Radiculopathy, lumbar region M54.16 Back pain M54.9 Chronic pain syndrome G89.4 Morbid obesity E66.01 Change in hearing H91.90 Anxiety with depression F41.8 Fungal infection of skin B36.9 Neuropathic pain M79.2
[2022-11-11 08:39] VITALS: BP 110/68; PULSE 80; O2SAT 97; BMI 36.9
== END 2022-11-11 09:27 | disposition home or self-care (01) ==
PROVIDERS: PCP Family Medicine; Visit Provider Family Medicine
DX: M54.16 Radiculopathy, lumbar region (principal); E66.01 Morbid (severe) obesity due to excess calories; F41.8 Other specified anxiety disorders; Z68.36 Body mass index [BMI] 36.0-36.9, adult; M54.9 Dorsalgia, unspecified; G89.4 Chronic pain syndrome; H91.90 Unspecified hearing loss, unspecified ear; B36.9 Superficial mycosis, unspecified; M79.2 Neuralgia and neuritis, unspecified
CPT/HCPCS: 99214

== ENCOUNTER 2022-11-26 07:18 | Outpatient (REF) | payer OTHER, SELFPAY ==
--- NOTE | ~2022-11-26 | MR_ITS ---
EXAMINATION: MR LUMBAR SPINE WITHOUT CONTRAST CLINICAL INFORMATION: Lower back pain, left leg pain and numbness COMPARISON: None TECHNIQUE: MRI of the lumbar spine was obtained using routine sequences without contrast. FINDINGS: Trace retrolisthesis of L3 on L4 and L4 on L5. No suspicious marrow signal or focal osseous lesion. No significant marrow edema. The vertebral body heights are maintained. Disc desiccation and mild height loss at L4-L5 and L5-S1. The conus medullaris terminates at the level of L1. The distal spinal cord is normal in appearance. The cauda equina nerve roots appear normal. No significant abnormalities of the paraspinal musculature. Limited evaluation of the intra-abdominal structures without significant abnormalities. The abdominal aorta is of normal contour and caliber. Mild degenerative changes of the sacroiliac joints. SPINAL LEVELS: T12-L1: No significant spinal canal or neural foraminal narrowing L1-L2: No significant spinal canal or neuroforaminal narrowing. L2-L3: No significant spinal canal or neuroforaminal narrowing. Mild facet arthropathy. L3-L4: Shallow disc bulge with superimposed right foraminal protrusion. Mild facet arthropathy. No significant central spinal canal stenosis. Mild left and moderate right neural foraminal narrowing with likely impingement of the exiting right L3 nerve root. L4-L5: Left eccentric central disc protrusion, mild facet arthropathy. No significant central spinal canal stenosis or neural foraminal narrowing. There is bilateral subarticular zone effacement with likely mass effect on the left greater than right traversing L5 nerve roots L5-S1: No significant spinal canal or neuroforaminal narrowing. Small central disc protrusion contacts but does not significantly displace the traversing S1 nerve roots. MR/MR lumbar spine wo con IMPRESSION: 1. At L3-L4, a right foraminal protrusion contributes to moderate right neural foraminal narrowing with likely impingement of the exiting right L3 nerve root. 2. At L4-L5, a left eccentric central disc protrusion contributes to bilateral subarticular zone effacement with likely mass effect on the left greater than right traversing L5 nerve roots. 3. At L5-S1, a small central disc protrusion contacts but does not significantly displace the traversing S1 nerve roots.
== END 2022-11-26 07:19 | disposition home or self-care (01) ==
LOC: HO.MRI 07:18
PROVIDERS: PCP Family Medicine; Visit Provider Family Medicine
DX: M47.816 Spondylosis without myelopathy or radiculopathy, lumbar region (principal); M51.36 Other intervertebral disc degeneration, lumbar region; M54.16 Radiculopathy, lumbar region
CPT/HCPCS: 72148

== ENCOUNTER 2022-12-23 08:38 | Outpatient (AMB) | payer OTHER, SELFPAY ==
[2022-12-23 08:50] VITALS: BP 120/78; PULSE 71; O2SAT 97; BMI 38.2
--- NOTE | 2022-12-23 08:50 | MHC.PC.OV ---
Vital Signs 12/23/22 08:50 Height 6 ft 4 in Weight 313 lb 8 oz BMI 38.2 BP 120/78 Blood Pressure Location Rt brachial Position Sitting Pulse 71 Pulse Source Pulse Oximeter Pulse Oximetry (%) 97 Oxygen Delivery Method Room Air Intake Visit Reasons: PE Intake Note: Patient is here today for a physical. Patient is concerned about bumps on right arm. He states it's been a couple for a couple of months, tried antifungal cream, with no relief. He would like to discuss ENT referral. Allergies No Known Allergies Allergy (Verified 12/23/22 08:53) Tobacco use date assessed: 11/11/22 Dental Screening Dental Screen Date: 12/23/22 Did you have a dental visit in the last 12 months?: No Did you have a dental problem in the last 6 months where you did not have access to dental care?: No Was dental information given to patient?: Patient declined HPI PE HPI Details 42 y/o male presents for an extended exam with f/u labs and health maintenance. Labs were drawn 11/06/22. Reviewed labs with pt. Triglycerides 238. TC 229. LDL 140. HDL 42. A1c 5.3%. PTH was off at 134 pg/mL. Blood pressure today 120/78. He is on metoprolol 50mg daily. [facility] Medical History (Updated 12/23/22 @ 09:32 by Ashu Yu) Annual physical exam Anxiety Back pain with left-sided sciatica Binge-eating disorder, moderate BMI greater than 40 Depression Diabetes type 2, uncontrolled Elevated liver enzymes Essential hypertension Hiatal hernia Hx of renal calculi Hyperlipidemia Ingrown toenail Left hip pain Low back pain Low HDL (under 40) Major depressive disorder, recurrent, unspecified Neuropathy Screening for prostate cancer Seborrheic dermatitis of scalp Surgical History History of esophagogastroduodenoscopy (EGD) Family History Mother Diabetes Kidney problem Carpal tunnel syndrome Chronic knee pain after total replacement of knee joint Depression Father No problems noted. Brother Depression Social History Housing: Apartment Are you a primary workforce investment act career manager to a significant other at home: No Do you presently have visiting nurse or other home services: No Alcohol intake: current Alcohol intake frequency: holidays/special occasions only Patient Tobacco Use Status: Former Tobacco user Quit Date: 2013 Tobacco use type: Cigarette Years Smoked: since e-Cigarette/Vaping Use: Never Used Second Hand Smoke Exposure: No service: Yes Current occupational status: employed Current occupational exposures/hazards: No Cognitive needs: No Hearing needs: No Vision needs: No Questionnaire Thrive Questionnaire Date Thrive assessed: 11/10/21 RUDY-7 AMB Questionnaire RUDY-7 Date RUDY - 7 assessed: 07/15/22 Source: Developed by Drs. Iglesia Aguilera, Hayde Noonan, Sree Ornelas and colleagues, with an educational jenny from [employer]. Review of Systems Const Denies chills, Denies fatigue, Denies fever(s), Denies headache(s) and Denies weakness Eyes Denies change in vision ENT Denies dizziness, Denies headache(s), Denies hearing loss, Denies nasal congestion, Denies sinus pain, Denies sinus pressure and Denies sore throat Card Denies chest pain, Denies lightheadedness, Denies dyspnea and Denies other (palpitations) Resp Denies cough, Denies dyspnea and Denies wheezing GI Denies abdominal pain, Denies melena, Denies hematochezia, Denies change in bowel habits, Denies dyspepsia, Reports diarrhea and Denies nausea Denies hematuria and Denies dysuria Musc Denies abnormal gait, Denies myalgias, Denies arthralgias, Denies numbness and Denies tingling Skin/Breast Denies rash, Denies unusual bruising and Denies wounds Neuro Denies abnormal gait, Denies dizziness, Denies headache(s), Denies memory loss, Denies numbness, Denies Sensory deficit (Neuro), Denies tingling and Denies weakness Psych Denies anxiety, Denies depression and Denies memory loss Endo Denies cold intolerance, Denies fatigue, Denies heat intolerance, Denies polydipsia and Denies polyuria Morgan/Lymph Denies easy bleeding and Denies easy bruising Aller/Immun Denies wheezing Physical exam (Primary Care) Vital Signs: Last Vital Signs Pulse 71 12/23/22 08:50 BP 120/78 12/23/22 08:50 Pulse Ox 97 12/23/22 08:50 Oxygen Delivery Method Room Air 12/23/22 08:50 BMI result Body Mass Index 38.2 Tobacco/Smoking Status: Tobacco use Status Tobacco use date assessed 11/11/22 12/23/22 08:54 Patient Tobacco Use Status Former Tobacco user 12/23/22 08:54 Tobacco use type Cigarette 12/23/22 08:54 e-Cigarette/Vaping Use Never Used 12/23/22 08:54 Thrive Assessment: Date of Thrive Assessment Date Thrive assessed 11/10/21 12/23/22 08:54 Const General: no acute distress, well developed, alert and awake Nutritional Appearance: well nourished and obese Orientation/consciousness: patient oriented x3 HENMT Head: Yes normocephalic and Yes atraumatic Ears: hearing grossly normal bilaterally and TM's normal bilaterally General nose exam: Normal external nose present and Normal nares present Mouth: Normal oral and palatal mucosa present and moist mucous membranes Teeth and gingiva: dentition normal Throat: Yes posterior oropharynx normal Eyes General: appearance normal, both eyes and all related structures Pupils: Equal, round and reactive pupils present and Pupil accommodation reflex normal EOM: EOMs intact bilaterally Neck Neck: Yes normal visual inspection, Yes no lymphadenopathy and Yes trachea midline Thyroid: Thyroid normal Carotids: no bruits Lymphatic: no lymphadenopathy noted Chest Chest palpation & inspection: normal inspection of the chest Resp Effort & Inspection: normal respiratory effort Auscultation: clear to auscultation bilaterally Cardio Rate: regular rate Rhythm: regular rhythm Heart sounds: S1 normal heart sound present, S2 normal heart sound present, no gallops, no murmurs and no rubs Bruits: no abdominal aortic bruits and no carotid bruits GI Palpation (GI): No Abdominal aortic bruit present, Soft to palpation, nontender, No hepatosplenomegaly present and No Rebound tenderness present Auscultation: normal bowel sounds General: Yes no CVA tenderness Back/Spine/Pelvis Back: no CVA tenderness Cervical Spine: cervical ROM normal and No Cervical spine tenderness Thoracic/Lumbar Spine: thoraco-lumbar ROM normal, No pain with thoraco-lumbar ROM, No thoracic spinal tenderness and No lumbar spinal tenderness Skin Lesions: no lesions Rashes: no rashes Trauma: no lacerations or abrasions Wounds: no wounds Nails: normal Neuro General: patient oriented x3 Cranial nerves: Yes Equal, round and reactive pupils present Cognition (Neuro): normal cognition Gait exam (Neuro): Normal gait present Motor exam (neuro): 5/5 motor strength present throughout Sensory Exam: No Sensory deficit (Neuro) Deep tendon reflexes (DTR's): Right patellar reflex intensity grade: 2+ and Left patellar reflex intensity grade: 2+ Extrem General: Yes normal to inspection and No edema Psych Appearance: grossly normal Affect: normal affect Attitude: cooperative Thought process: Normal thought process present Assessment and Plan Assessment & Plan (1) Hyperlipidemia: Code(s): E78.5 - Hyperlipidemia, unspecified Plan: LDL cholesterol is too high He will work at a diet lower in saturated fats and cholesterol Follow-up in 3 months. Get lipids redrawn prior to that visit (2) Essential hypertension: Code(s): I10 - Essential (primary) hypertension Plan: Blood pressure is controlled. Goal is less than 140/90 Continue current medication regimen (3) Radiculopathy, lumbar region: Code(s): M54.16 - Radiculopathy, lumbar region Plan: Patient is seen Dr. Mart in the past MRI shows potential impingement at L3 and L5 Referred back to Dr. Mart but he has not heard from him yet. Asking office to check on the status of this Continue physical therapy (4) Disc degeneration, lumbar: Code(s): M51.36 - Other intervertebral disc degeneration, lumbar region Plan: As above (5) Elevated liver enzymes: Code(s): R74.8 - Abnormal levels of other serum enzymes Plan: Will recheck this with next blood draw (6) Diarrhea: Code(s): R19.7 - Diarrhea, unspecified Plan: Soft stools Hydrate well and try a soluble fiber tablet (7) Chronic pain syndrome: Code(s): G89.4 - Chronic pain syndrome Plan: Continue amitriptyline Continue physical therapy (8) Screening for prostate cancer: Code(s): Z12.5 - Encounter for screening for malignant neoplasm of prostate (9) Adult general medical exam: Code(s): Z00.00 - Encounter for general adult medical examination without abnormal findings Plan: Check PSA Orders: Orders Comprehensive [place]. Panel Fast Today Z00.00 - Encounter for general adult medical examination without abnormal findings Lipid Panel Today Z00.00 - Encounter for general adult medical examination without abnormal findings Prostate Specific Antigen Scr Today Z12.5 - Encounter for screening for malignant neoplasm of prostate Medications: New calcium polycarbophil ([employer]iber[employer]) 625 mg PO DAILY 30 tabs 2RF 30 days Coding Level of Care Code Est Pt Level 4 (74976) Diagnoses Hyperlipidemia E78.5 Essential hypertension I10 Radiculopathy, lumbar region M54.16 Disc degeneration, lumbar M51.36 Elevated liver enzymes R74.8 Diarrhea R19.7 Chronic pain syndrome G89.4 Screening for prostate cancer Z12.5 Adult general medical exam Z00.00
== END 2022-12-23 09:44 | disposition home or self-care (01) ==
PROVIDERS: Visit Provider Family Medicine
DX: E78.5 Hyperlipidemia, unspecified (principal); I10 Essential (primary) hypertension; M54.16 Radiculopathy, lumbar region; M51.36 Other intervertebral disc degeneration, lumbar region; R74.8 Abnormal levels of other serum enzymes; R19.7 Diarrhea, unspecified; G89.4 Chronic pain syndrome; Z12.5 Encounter for screening for malignant neoplasm of prostate; Z00.00 Encounter for general adult medical examination without abnormal findings
CPT/HCPCS: 99214

== ENCOUNTER 2022-12-23 10:13 | Outpatient (REF) | payer OTHER, SELFPAY ==
--- NOTE | 2022-12-24 09:24 | MHC.AU.MED ---
Medical Clearance for Hearing Instrumentation Date: 12/23/22 Patient Name: Gary Mace Date of : 1980 Primary Care Provider: Patrick Mullen MD We have seen your patient on 12/23/22 and have determined that they are a candidate for amplification (See accompanying report). Specifically, they would benefit from: Hearing aid use in both ears There is a statute that addresses Medical Evaluation Requirements prior to fitting a patient with a hearing aid. According to [place] statute [facility] CMR:6.03(1), (a) General. Except as provided in 265 CMR 6.03(1)(b), a teacher hearing impaired shall not sell a hearing aid unless the prospective user has presented to the teacher hearing impaired a written statement signed by a licensed physician that states that the patient's hearing loss has been medically evaluated and the patient may be considered a candidate for a hearing aid. The medical evaluation must have taken place within the preceding six months. Please note: Due to the [place] Statute referenced above, we cannot accept a signature other than that of a licensed physician. GUT SORTER and PA signatures cannot be accepted. I am in agreement with the above recommendation. There is no medical contraindication for hearing instrumentation. Physician Signature Date Physician Name (Printed)
--- NOTE | 2022-12-24 09:41 | MHC.AU.HA1 ---
Hearing Aid Evaluation Date of Visit: 12/23/22 Historical Information: Description of Hearing: Within normal through 2 kHz sloping to mild sensorineural hearing loss Summary: Although Gary does not notice significant communication difficulties, he is interested in trialing hearing aids to determine their impact on the perception of his tinnitus. Gary initially noticed his tinnitus several months ago. Although it is not overwhelmingly bothersome, it has become annoying. He has tried at-home maskers/white noise with no perceived benefit. He is willing to trial other management strategies to help minimize its affect on his day-to-day life. Due to a rebound effect during residual inhibition testing, he likely would not be a good candidate for a masking generator. However, with a mild high frequency hearing loss, he may experience a decrease in the perception of his tinnitus with hearing aids alone for stimulation of those higher frequencies. Gary is interested in hearing aids that are compatible with his Android cellphone and rechargeable. Hearing Aid Prescription: Based on the individual?s shared listening needs, communication environments, dexterity, desire for connectivity, and personal preferences, the following prescription for amplification has been made: Right ear: Make, Model, Color: Phonak Audeo P70-R Color: Black Battery Size: Rechargeable Investigation Specialist/Slim Tube: 1S Type of Earmold/Dome/CShell/SlimTip: Medium open dome Left ear: Left ear prescription to be same as Right Hearing Aid above: Make, Model, Color: Phonak Audeo P70-R Color: Black Battery Size: Rechargeable Investigation Specialist/Slim Tube: 1S Type of Earmold/Dome/CShell/SlimTip: Medium open dome Plan of Care: Patient wishes to purchase hearing aids as prescribed Action Taken/Action Needed: Medical Clearance to be requested from PCP/ENT. Hearing Instrument Fitting to be scheduled when materials arrive Primary Diagnosis: H90.3 Bilateral Sensorineural Hearing Loss Secondary Diagnosis: H93.13 Tinnitus, Bilateral Signature: Provider: Arie Tang, [facility]
== END 2022-12-23 10:14 | disposition home or self-care (01) ==
LOC: HO.SH 10:13
PROVIDERS: Visit Provider Family Medicine
DX: H90.3 Sensorineural hearing loss, bilateral (principal)
CPT/HCPCS: 92557; 92591; 92625

== ENCOUNTER 2023-01-05 11:00 | Outpatient (RCR) | payer OTHER, SELFPAY ==
--- NOTE | 2022-11-24 13:42 | MHC.PT.EP ---
[facility] [place] Office [place] Office [place] Office [address] Neha Dumont [address] [phone] F: [phone] F: [phone] F: [phone] F: [phone] Physical Therapy Plan of Care Date of Evaluation: Date of Surgery: Diagnosis: PT eval and treat, 08/26/22 Dorsalgia, unspecified Back pain M54.9 Assessment: Pt is a RHD 42 y/o male, referred to PT from PCP Dr Mullen with date of referral, 08/26/22 Dorsalgia, unspecified Back pain M54.[address] Mullen. Pt expresses chronic history of back pain which began following history of work related injury 07/2019. Since that time pt has completed past PT with limited gains (receiving treament including stretches, strengthening, lumbar traction per pt report at a different facility). Pt expresses history of past consult with neurosurgeon Dr. Mart x 1 visit and at the time was advised to lose weight. Since that consult Mr. Mace underwent gastric sleeve surgery 11/14, lost some weight with recent reports of some weight gain back. Pt is awaiting a new MRI of his lumbar spine (11/26/22). Pt expresses history of chronic L LE parathesias which he describes as lava which is constant radiating along L5 dermatome. Pt exhibits L LE weakness with MMT, impaired lumbar AROM and (+) slump testing. Pt has trialed history of previous injection in his spine with limited gains. Pt was seen in PT for treatment of R hip for separate injury in the past year with some gains in core/hip strength. At that time of discharge pt was reportedly more active and had transitioned to the gym. Since that time patient has cancelled his gym membership and has become more sedentary. Discussion and encouragement for active exercise (ie: pool therapy, walking program, and or gym for gradual aerobic tasks back to baseline with respect to L LE sx have been suggested. Pt expressing he has been experiencing L LE instability which causes his L LE to buckle at times (ongoing). Pt expresses sx across his lower back rated 8-9/10 with constant L LE sx. Plan is to implement a more active lifestyle while adding gentle core/hip stabilization activities. Prognosis for resolution of L LE parathesias sx is fair based on chronicity of sx (2020). Pt is motivated to shift his activity level however there is some degree of mental health barriers due to active history of depression. Pt will be seen in PT 2x/week x 4 weeks to meet listed goals. Thank you for this referral. Frequency and Duration: The patient will be seen 2x/week x 4 weeks. Short Term Goals: 1. Reinitiate active HEP program/daily flexibility routine. 2. Initiate a walking program daily. 3. Improve L hip abd strength by one grade. 4. Increase functional squat technique and core activation during movements. Breaking Machine Operator Goals: 1. I HEP good self care/posture/body mechanics. 2. Strength L LE globally 5/5. 3. Demonstrate ability to complete plank with good technique/support. 4. Strength bridge with good symmetry and hip extension extension 5/5 B. 5. Reduce back pain by 50% during ADLS/IADLS. Treatment Plan: Modalities to reduce pain, spasms and effusion. Manual therapy to restore motion and function. Therapeutic exercise to improve strength and flexibility. Neuromuscular re-education for posture and balance. Therapeutic activities to return to functional activities of daily living. Electronically signed by: Please sign and return to therapist. Thank you for your referral.
== END 2023-04-13 11:34 | disposition home or self-care (01) ==
LOC: HO.PTWFD 11:00
PROVIDERS: PCP Family Medicine; Visit Provider Family Medicine
DX: M54.9 Dorsalgia, unspecified (principal)
CPT/HCPCS: 97110; 97162; 97535

== ENCOUNTER 2023-02-25 12:03 | Outpatient (REF) | payer OTHER, SELFPAY ==
--- NOTE | 2023-02-25 14:00 | MHC.AU.HA2 ---
Hearing Instrument Fitting- Adult- Binaural Date of Visit: 02/25/23 Hearing Instruments Dispensed: Right Ear: Eliu, Model, Color, Serial Number: Antwan Taveraso P70-R SN: [id number] Color: Black Power Plant Mechanic Repair Warranty: 04/12/2026 Power Plant Mechanic Loss and Damage Warranty: 04/12/2026 [facility] Service Plan: 02/26/2024 Battery Size: Rechargeable Mapping Editor/Slim Tube: 1S Earmold/Dome/CShell/SlimTip: Medium open dome (no retention tail) Type of Wax Guard: CeruShield Disk Left Ear: Eliu, Model, Color, Serial Number: Antwan Leslieeo P70-R SN: [id number] Color: Black Power Plant Mechanic Repair Warranty: 04/12/2026 Power Plant Mechanic Loss and Damage Warranty: 04/12/2026 [facility] Service Plan: 02/26/2024 Battery Size: Rechargeable Mapping Editor/Slim Tube: 1S Earmold/Dome/CShell/SlimTip: Medium open dome (no retention tail) Type of Wax Guard: CeruShield Disk Accessories/Assistive Technology: Phonak Mail Processor Ease SN: [id number] Summary of Fitting: Ran feedback analyzer. Performed real ear measures; however, not able to complete due to technical difficulties. Decreased to 90% gain level. Added 2nd program with tinnitus masker at Gary's request. Discussed care and use including rechargeability, manually turning on/off, and changing domes and wax guards. Practiced insertion and removal. Gary was able to manipulate the hearing aids with ease. Paired to cell phone and [email or web address] wendy. Discussed importance of daily, consistent use and acclimatization period. Gary is trialing hearing aids primarily to determine their affect on his tinnitus. He will monitor his perception of tinnitus over the next few weeks with the hearing aids alone, with the masking program, and with other masking sounds streamed via bluetooth. He will download a tinnitus wendy for control/use of other masking sounds. Recommendations: A hearing instrument follow-up was scheduled. Diagnosis Code(s): Primary Diagnosis: H90.3 Bilateral Sensorineural Hearing Loss Secondary Diagnosis: H93.13 Tinnitus, Bilateral Signature: Provider: Arie Tang, [facility]
== END 2023-02-25 12:04 | disposition home or self-care (01) ==
LOC: HO.HAP 12:03
PROVIDERS: Visit Provider Family Medicine
DX: Z46.1 Encounter for fitting and adjustment of hearing aid (principal); H90.3 Sensorineural hearing loss, bilateral; H93.13 Tinnitus, bilateral
CPT/HCPCS: V5011; V5020; V5160; V5261

== ENCOUNTER 2023-03-29 | Outpatient (REF) | payer OTHER, SELFPAY | END 2023-03-29 00:01 | disposition home or self-care (01) | LOC: HO.LAB | PROVIDERS: Visit Provider Family Medicine | DX: Z00.00 Encounter for general adult medical examination without abnormal findings (principal); Z12.5 Encounter for screening for malignant neoplasm of prostate; M47.816 Spondylosis without myelopathy or radiculopathy, lumbar region | CPT/HCPCS: 36415; 80053; 80061; 81003; 82043; 82570; 84153; 84443 ==

== ENCOUNTER 2023-03-29 09:10 | Outpatient (REF) | payer OTHER, SELFPAY ==
[2023-03-29 11:20] LABS: Appearance Urine Clear; Color Urine Yellow; Glucose Urine UA 100 mg/dL (Negative); Leukocyte Esterase Urine Negative (Negative); Nitrite Urine Negative (Negative); Urine Blood Negative (Negative); Urine Ketones Negative (Negative); Urine Protein Trace mg/dL (Neg-Trace)
[2023-03-29 11:58] LABS: Alanine Aminotransferase 31 U/L (0-40); Albumin Level 4.2 g/dL (3.5-5.0); Alkaline Phosphatase 40 U/L (39-117); Anion Gap 12 (12-20); Aspartate Amino Transferase 25 U/L (5-37); Bilirubin Total 0.8 mg/dL (0.0-1.0); Blood Urea Nitrogen 8 mg/dL (9-16); Calcium 9.4 mg/dL (8.4-10.2); Carbon Dioxide 27 mmol/L (22-29); Chloride 106 mmol/L (96-108); Cholesterol 183 mg/dL (<200); Estimated Glomerular Filt Rate > 60; Glucose Fasting 120 mg/dL (60-99); HDL Cholesterol 32 mg/dL (>40); LDL Cholesterol Calculated 96 mg/dL (<100); Sodium 141 mmol/L (135-145); Total Protein 7.2 g/dL (6.5-8.0); Triglycerides 275 mg/dL (<150)
[2023-03-29 12:17] LABS: Prostate Specific Antigen Scr 0.27 ng/mL (<0.05-4.0)
[2023-03-29 12:18] LABS: Creatinine Urine 141.42 mg/dL; Microalbum/Creatinine Ratio Ur 66.4 ug/mg cr (<30)
[2023-03-29 12:19] LABS: TSH reflex Free T4 1.11 uIU/mL (0.32-4.0)
== END 2023-03-29 09:11 | disposition home or self-care (01) ==
LOC: HO.HAP 09:10
PROVIDERS: Visit Provider Family Medicine
DX: Z13.89 Encounter for screening for other disorder (principal)
CPT/HCPCS: 36415; 80053; 80061; 81003; 82043; 82570; 84153; 84443

== ENCOUNTER 2023-04-14 16:23 | Outpatient (AMB) | payer OTHER, SELFPAY ==
[2023-04-14 16:35] VITALS: BP 126/74; PULSE 77; O2SAT 98; BMI 39.3
--- NOTE | 2023-04-14 16:35 | A.OFFPC_ITS ---
Vital Signs 04/14/23 16:35 Height 6 ft 4 in Weight 323 lb BMI 39.3 BP 126/74 Blood Pressure Location Lt brachial Position Sitting Pulse 77 Pulse Source Pulse Oximeter Pulse Oximetry (%) 98 Oxygen Delivery Method Room Air Intake Visit Reasons: f/u hyperlipidemia Intake Note: Patient is here to follow up on hyperlipidemia, and would like to talk about right arm coldness, lower legs feel numbness. Allergies pet dander Allergy (Intermediate, Uncoded 04/14/23 16:38) Itchy Eyes Tobacco use date assessed: 04/14/23 HPI f/u hyperlipidemia HPI Details 42 y/o male presents to f/u HLD. Labs were drawn 03/29/23. Reviewed labs with pt. Triglycerides 275. TC 183. LDL 96. HDL low at 32. Elevated microalbumin/creatinine ratio at 66.4. [facility] Medical History (Updated 04/14/23 @ 17:10 by Ashu Yu) Hiatal hernia Low back pain Hx of renal calculi Depression Neuropathy Hyperlipidemia Major depressive disorder, recurrent, unspecified Binge-eating disorder, moderate Screening for prostate cancer Elevated liver enzymes Anxiety Ingrown toenail Left hip pain Seborrheic dermatitis of scalp Back pain with left-sided sciatica Diabetes type 2, uncontrolled Low HDL (under 40) BMI greater than 40 Essential hypertension Annual physical exam Surgical History History of esophagogastroduodenoscopy (EGD) Family History Mother Diabetes Kidney problem Carpal tunnel syndrome Chronic knee pain after total replacement of knee joint Depression Father No problems noted. Brother Depression Social History Housing: Apartment Are you a primary certified social workers in health care to a significant other at home: No Do you presently have visiting nurse or other home services: No Alcohol intake: current Alcohol intake frequency: holidays/special occasions only Comment: X-RAY PERFORMED -NO SUTURE IN ABDOMEN Patient Tobacco Use Status: Former Tobacco user Quit Date: 2013 Tobacco use type: Cigarette Years Smoked: since 30's e-Cigarette/Vaping Use: Never Used Second Hand Smoke Exposure: No service: Yes Current occupational status: employed Current occupational exposures/hazards: No Cognitive needs: No Hearing needs: No Vision needs: No Questionnaire Thrive Questionnaire Date Thrive assessed: 11/10/21 RUDY-7 AMB Questionnaire RUDY-7 Date RUDY - 7 assessed: 07/15/22 Source: Developed by Drs. Iglesia Aguilera, Hayde Noonan, Sree Ornelas and colleagues, with an educational jenny from [employer]. Review of Systems Const Denies chills, Denies fatigue, Denies fever(s), Denies headache(s) and Denies weakness ENT Denies dizziness and Denies headache(s) Card Denies dyspnea Resp Denies cough, Denies dyspnea, Denies wheezing and Denies other (shortness of breath) Musc Denies numbness and Denies tingling Neuro Denies dizziness, Denies headache(s), Denies numbness, Denies tingling and Denies weakness Psych Denies anxiety and Denies depression Endo Denies fatigue Aller/Immun Denies wheezing Physical exam (Primary Care) Vital Signs: Last Vital Signs Pulse 77 04/14/23 16:35 BP 126/74 04/14/23 16:35 Pulse Ox 98 04/14/23 16:35 Oxygen Delivery Method Room Air 04/14/23 16:35 BMI result Body Mass Index 39.3 Tobacco/Smoking Status: Tobacco use Status Tobacco use date assessed 04/14/23 04/14/23 16:43 Patient Tobacco Use Status Former Tobacco user 04/14/23 16:43 Tobacco use type Cigarette 04/14/23 16:43 e-Cigarette/Vaping Use Never Used 04/14/23 16:43 Thrive Assessment: Date of Thrive Assessment Date Thrive assessed 11/10/21 04/14/23 16:43 Const General: well developed; No acute distress Nutritional Appearance: well nourished Orientation/consciousness: patient oriented x3 HENMT Head: Yes normocephalic and Yes atraumatic Eyes General: appearance normal, both eyes and all related structures Pupils: Equal, round and reactive pupils present EOM: EOMs intact bilaterally Resp Effort & Inspection: normal respiratory effort Neuro General: patient oriented x3 and gait normal Cranial nerves: Yes Equal, round and reactive pupils present Psych Affect: normal affect Assessment and Plan Assessment & Plan (1) Diabetes type 2, controlled: Code(s): E11.9 - Type 2 diabetes mellitus without complications Plan: Elevated?blood?sugars?but?A1c?has?been?fairly?well?controlled Encouraged?diet?lower?in?sugars?and?starches Triglycerides?mildly?elevated. Microalbumin/creatinine?ratio?mildly?elevated As?above,?encouraged?tighter?diet-controlled Will?recheck?these?soon?and?may?need?medication?adjustment (2) Low HDL (under 40): Code(s): E78.6 - Lipoprotein deficiency Plan: Patient?unable?to?exercise?due?to?back?pain He?is?referred?to?neuro?surgery?for?his?back Can?use?foods?high?in?[place]?3?fatty?acids (3) Back pain: Code(s): M54.9 - Dorsalgia, unspecified Plan: MRI?positive?and?lumbar?spine?for?L3?and?L5?stenoses?with?mass?effect?or?effacem ent Referred?to?Neurosurgery (4) Raynaud phenomenon: Code(s): I73.00 - Raynaud's syndrome without gangrene Plan: Right?hand?gets?cold?and?mildly?pale?intermittently. No?numbness?or?weakness Capillary?refill,?radial?and?ulnar?pulses?are?normal Probable?Raynaud's?phenomenon Keep?hand?warm Call?or?return?to?office?if?not?improving?or?new?concerning?symptoms (5) Microalbuminuria: Code(s): R80.9 - Proteinuria, unspecified Plan: Will?repeat?this?with?next?lab?work Improved?blood?sugar?control If?not?improving,?will?consider?a?small?dose?of?SRINIVASAN?inhibitor?or?Arb (6) Fungal infection of skin: Code(s): B36.9 - Superficial mycosis, unspecified Plan: Fungal?skin?infection?on?scalp?and?he?was ?requesting?Lamisil?orally?as?he?has?tried?numerous?other?therapies Liver?enzymes?are?within?normal?limits Will?try?Diflucan?1st. If?not?improving?can?consider?Lamisil?treatment Orders: Orders Comprehensive [place]. Panel Fast Today E78.5 - Hyperlipidemia, unspecified, Z00.00 - Encounter for general adult medical examination without abnormal findings Lipid Panel Today E78.5 - Hyperlipidemia, unspecified, Z00.00 - Encounter for general adult medical examination without abnormal findings Medications: New fluconazole 150 mg PO Q3D 2 tabs 0RF 2 doses Changed From amitriptyline 100 mg PO BEDTIME 30 tabs 1RF To amitriptyline 100 mg PO BEDTIME 30 tabs 4RF 30 days Coding Level of Care Code Est Pt Level 4 (07037) Diagnoses Diabetes type 2, controlled E11.9 Low HDL (under 40) E78.6 Back pain M54.9 Raynaud phenomenon I73.00 Microalbuminuria R80.9 Fungal infection of skin B36.9
== END 2023-04-14 17:44 | disposition home or self-care (01) ==
PROVIDERS: PCP Family Medicine; Visit Provider Family Medicine
DX: E11.9 Type 2 diabetes mellitus without complications (principal); E78.6 Lipoprotein deficiency; M54.9 Dorsalgia, unspecified; I73.00 Raynaud's syndrome without gangrene; R80.9 Proteinuria, unspecified; B36.9 Superficial mycosis, unspecified
CPT/HCPCS: 99214

== ENCOUNTER 2023-05-20 11:18 | Outpatient (AMB) | payer OTHER, SELFPAY ==
--- NOTE | 2023-05-20 11:26 | A.OFFPC_ITS ---
Vital Signs 05/20/23 11:27 Height 6 ft 4 in Weight 321 lb 4 oz BMI 39.1 BP 124/78 Blood Pressure Location Lt brachial Position Sitting Pulse 77 Pulse Source Pulse Oximeter Pulse Oximetry (%) 95 Oxygen Delivery Method Room Air Intake Visit Reasons: pre op [facility] on 06/08/23 Intake Note: Patient is here for preop appointment for back surgery on 06/07. Patient would like to talk about gabapentin refill. Allergies No Known Allergies Allergy (Verified 05/20/23 11:30) Tobacco use date assessed: 04/14/23 Dental Screening Dental Screen Date: 05/20/23 Did you have a dental visit in the last 12 months?: Yes Did you have a dental problem in the last 6 months where you did not have access to dental care?: No Was dental information given to patient?: Patient declined HPI pre op [facility] on 06/08/23 HPI Details Patient?presents?for?preoperative?clearance?prior?to??Back surgery Procedure: L microdiscectomy Date: 06/07/2023 Surgeon: Dr Norwood Anesthesia: General Cardiac?Hx: No cardiac disease Pulmonary?Hx: None. Quit smoking 10 yrs ago Prior?Surgical?Complications: None Prior?Anesthesia?Complications: None Coag?Issues: None Functional?[place]: Pt can climb a flight of stairs with a bag of groceries or walk a city block without feeling winded. Limitation would be back pain. [facility] Medical History Hiatal hernia Low back pain Hx of renal calculi Depression Neuropathy Hyperlipidemia Major depressive disorder, recurrent, unspecified Binge-eating disorder, moderate Screening for prostate cancer Elevated liver enzymes Anxiety Ingrown toenail Left hip pain Seborrheic dermatitis of scalp Back pain with left-sided sciatica Diabetes type 2, uncontrolled Low HDL (under 40) BMI greater than 40 Essential hypertension Annual physical exam Surgical History History of esophagogastroduodenoscopy (EGD) Family History Mother Diabetes Kidney problem Carpal tunnel syndrome Chronic knee pain after total replacement of knee joint Depression Father No problems noted. Brother Depression Social History (Reviewed 05/20/23 @ 11:33 by DARIO Sebastian Housing: Apartment Are you a primary insurance healthcare representative to a significant other at home: No Do you presently have visiting nurse or other home services: No Alcohol intake: current Alcohol intake frequency: holidays/special occasions only Comment: X-RAY PERFORMED -NO SUTURE IN ABDOMEN Patient Tobacco Use Status: Former Tobacco user Quit Date: 2013 Tobacco use type: Cigarette Years Smoked: since ' e-Cigarette/Vaping Use: Never Used Second Hand Smoke Exposure: No service: Yes Current occupational status: employed Current occupational exposures/hazards: No Cognitive needs: No Hearing needs: No Vision needs: No Questionnaire PHQ-9 Over the last 2 weeks, how often have you been bothered by any of the following problems? 1. Little interest or pleasure in doing things: more than half the days 2. Feeling down, depressed, or hopeless: several days 3. Trouble falling or staying asleep, or sleeping too much: more than half the days 4. Feeling tired or having little energy: more than half the days 5. Poor appetite or overeating: more than half the days 6. Feeling bad about yourself - or that you are a failure or have let yourself or your family down: several days 7. Trouble concentrating on things, such as reading the newspaper or watching television: nearly every day 8. Moving or speaking so slowly that other people could have noticed. Or the opposite - being so fidgety or restless that you have been moving around a lot more than usual: not at all 9. Thoughts that you would be better off or of hurting yourself in some way: not at all Total score: 13 Source: Developed by Drs. Iglesia Aguilera, Hayde Noonan, Sree Ornelas and colleagues, with an educational jenny from [employer]. Thrive Questionnaire Date Thrive assessed: 11/10/21 I am a: Patient What is your living situation today?: I have a steady place to live Within the past 12 months, did the food you bought not last and you didn't have the money to get more?: Never true Within the past 12 months, did you worry whether your food would run out before you got money to buy more?: Never true Do you have trouble paying for medicines?: No Do you have trouble getting transportation to medical appointments?: Yes Do you have trouble paying your heating and electricity bill?: No Do you have trouble taking care of your child, family member or friend?: No Do you have trouble with day-to-day activities such as bathing, preparing meals, shopping, managing finances, etc.?: No Are you currently unemployed and looking for a job?: Yes Are you interested in more education?: Yes THRIVE Score: 1 AUDIT C Alcohol Use Questionnaire (AUDIT-C) 1. How often do you have a drink containing alcohol?: Never 3. How often do you have six or more drinks on one occasion?: Never Total Score: 0 RUDY-7 AMB Questionnaire RUDY-7 Date RUDY - 7 assessed: 05/20/23 Feeling nervous, anxious, or on edge: 1 = Several days Not being able to stop or control worryin = Not at all Worrying too much about different things: 1 = Several days Trouble relaxin = Several days Being so restless that it is hard to sit still: 0 = Not at all Becoming easily annoyed or irritable: 2 = More than half the days Feeling afraid as if something awful might happen: 1 = Several days Total RUDY-7 score (0-4 normal; 5-9 mild; 10-14 moderate; 15-21 severe): 6 Source: Developed by Drs. Iglesia Aguilera, Hayde Noonan, Sree Ornelas and colleagues, with an educational jenny from [employer]. Review of Systems Const Denies chills, Denies fatigue, Denies fever(s), Denies headache(s) and Denies weakness ENT Denies dizziness and Denies headache(s) Card Denies chest pain, Denies lightheadedness, Denies dyspnea and Denies other (Palpitations) Resp Denies cough, Denies dyspnea, Denies wheezing and Denies other ( shortness of br eath) Musc Denies numbness and Denies tingling Neuro Details: Radiation?of?low?back?pain?into?left?lower?extremity Denies dizziness, Denies headache(s), Denies numbness, Denies tingling, Denies paresthesias and Denies weakness Psych Denies anxiety and Denies depression Endo Denies fatigue Aller/Immun Denies wheezing Physical exam (Primary Care) Vital Signs: Last Vital Signs Pulse 77 05/20/23 11:27 BP 124/78 05/20/23 11:27 Pulse Ox 95 05/20/23 11:27 Oxygen Delivery Method Room Air 05/20/23 11:27 BMI result Body Mass Index 39.1 Tobacco/Smoking Status: Tobacco use Status Tobacco use date assessed 04/14/23 05/20/23 11:28 Patient Tobacco Use Status Former Tobacco user 05/20/23 11:28 Tobacco use type Cigarette 05/20/23 11:28 e-Cigarette/Vaping Use Never Used 05/20/23 11:28 PHQ-9: PHQ-9 Score PHQ-9: Total score 13 05/20/23 11:40 Thrive Assessment: Date of Thrive Assessment Date Thrive assessed 11/10/21 05/20/23 11:28 Const General: no acute distress and well developed Nutritional Appearance: well nourished and obese Orientation/consciousness: patient oriented x3 HENMT Head: Yes normocephalic and Yes atraumatic Eyes General: appearance normal, both eyes and all related structures Pupils: Equal, round and reactive pupils present EOM: EOMs intact bilaterally Resp Effort & Inspection: normal respiratory effort Auscultation: clear to auscultation bilaterally Cardio Rate: regular rate Rhythm: regular rhythm Heart sounds: S1 normal heart sound present, S2 normal heart sound present, no gallops, no murmurs and no rubs Back/Spine/Pelvis Other: Low?back?pain?with?ROM Neuro Other: Low?back?pain?with?radiation?into?left?lower?extremity General: patient oriented x3 and gait normal Cranial nerves: Yes Equal, round and reactive pupils present Psych Affect: normal affect Assessment and Plan Assessment & Plan (1) Pre-op exam: Code(s): Z01.818 - Encounter for other preprocedural examination Plan: 43-year-old?male?presents?for?preoperative?clearance?prior?to?microdiskectomy History?of ?obesity?and?history?of?diabetes?which?had?essentially?resolved?with?bariatric?s urgery?and?weight?loss. No?history?of?coronary?artery?disease?or?cardiac?disease. Cardiac?exam?is?within?normal?limits EKG: ?Normal?sinus?rhythm?with?normal?axis?and?normal?intervals, no?hypertrophy,?no?ST-T-wave?changes.??Normal?EKG?is?a?microdiskectomy?a?low?ris k?procedure???Is?a?microdiskectomy?a?low?risk?procedure?question?lucina No?history?of?pulmonary?disease?and?pulmonary?exam?is?normal?today. No?complications?with?prior?surgery?or?anesthesia No?clotting?or?bleeding?disorders Very?good?functional?reserve Low?risk?patient?for?intermediate?risk?procedure no?contraindications?to?proceeding?with?proposed?procedure Orders: Orders Complete Blood Count Auto Diff Today Z00.00 - Encounter for general adult medical examination without abnormal findings, Z01.818 - Encounter for other preprocedural examination Basic Metabolic Panel Fasting Today E66.9 - Obesity, unspecified Hemoglobin A1c Today E66.9 - Obesity, unspecified, R73.01 - Impaired fasting glucose Prothrombin Time INR Today Z01.818 - Encounter for other preprocedural examination Medications: Changed From gabapentin 400 mg PO TID 30 days 90 caps 2RF M47.816 - Spondylosis without myelopathy or radiculopathy, lumbar region To gabapentin 400 mg PO TID 90 days 270 caps 2RF M47.816 - Spondylosis without myelopathy or radiculopathy, lumbar region Coding Level of Care Code Est Pt Level 3 (16722) Diagnoses Pre-op exam Z01.818
[2023-05-20 11:27] VITALS: BP 124/78; PULSE 77; O2SAT 95; BMI 39.1
== END 2023-05-20 12:12 | disposition home or self-care (01) ==
PROVIDERS: PCP Family Medicine; Visit Provider Family Medicine
DX: M47.816 Spondylosis without myelopathy or radiculopathy, lumbar region (principal); E66.9 Obesity, unspecified; Z01.818 Encounter for other preprocedural examination; Z68.39 Body mass index [BMI] 39.0-39.9, adult
CPT/HCPCS: 99213

== ENCOUNTER 2023-05-20 12:16 | Outpatient (REF) | payer OTHER, SELFPAY ==
[2023-05-20 14:34] LABS: Basophils Absolute Auto 0.1 X10*3/uL (0.0-0.2); Eosinophils Absolute Auto 0.2 X10*3/uL (0.0-0.4); Eosinophils Percent Auto 2.6 % (0-4); Hematocrit 45.3 % (42.0-52.0); Hemoglobin 15.6 g/dl (14.0-18.0); Imm Gran Abs Auto 0.01 X10*3/uL (0.00-0.03); Imm Gran Pct Auto 0.2 % (0.0-0.4); Lymphocytes Absolute Auto 2.1 X10*3/uL (1.2-4.9); MANUAL DIFF FLAG SCAN; Mean Corpuscular HGB Conc 34.4 g/dl (31.0-36.0); Mean Corpuscular Hemoglobin 31.6 pg (27.0-33.0); Mean Corpuscular Volume 91.9 fL (80.0-98.0); Monocytes Absolute Auto 0.4 X10*3/uL (0.1-1.2); Monocytes Percent Auto 6.8 % (2-11); Neutrophils Absolute Auto 3.1 x10*3/uL (2.0-8.3); Neutrophils Percent Auto 53.4 % (45-73); PLT CLUMP 1; Red Blood Count 4.93 X10*6/uL (4.60-5.80); Red Cell Distribution Width 12.7 % (11.0-16.0); SCAN SMEAR FLAG 1
[2023-05-20 14:42] LABS: Estimated Average Glucose 117 mg/dL; Hemoglobin A1C 149.9529 umol/L; Hemoglobin A1c % 5.7 % (<6.0)
[2023-05-20 14:43] LABS: INTERNATIONAL NORM RATIO 0.9 (0.9-1.1)
[2023-05-20 14:50] LABS: Alanine Aminotransferase 37 U/L (0-40); Albumin Level 4.3 g/dL (3.5-5.0); Alkaline Phosphatase 40 U/L (39-117); Anion Gap 13 (12-20); Aspartate Amino Transferase 24 U/L (5-37); Bilirubin Total 0.5 mg/dL (0.0-1.0); Blood Urea Nitrogen 16 mg/dL (9-16); Calcium 9.7 mg/dL (8.4-10.2); Carbon Dioxide 27 mmol/L (22-29); Chloride 104 mmol/L (96-108); Cholesterol 203 mg/dL (<200); Estimated Glomerular Filt Rate > 60; Glucose Fasting 138 mg/dL (60-99); HDL Cholesterol 40 mg/dL (>40); LDL Cholesterol Calculated 115 mg/dL (<100); Potassium 4.3 mmol/L (3.3-5.1); Sodium 140 mmol/L (135-145); Total Protein 7.4 g/dL (6.5-8.0); Triglycerides 242 mg/dL (<150)
[2023-05-20 15:02] LABS: Prostate Specific Antigen Scr 0.22 ng/mL (<0.05-4.0)
[2023-05-20 15:30] LABS: Platelet Count 84 X10*3/uL (160-400); SLIDE REVIEW VERIFIED; White Blood Count 5.8 X10*3/uL (4.8-10.8)
== END 2023-05-20 12:17 | disposition home or self-care (01) ==
LOC: HO.WFDLDS 12:16
PROVIDERS: Visit Provider Family Medicine
DX: Z01.818 Encounter for other preprocedural examination (principal); E66.9 Obesity, unspecified; R73.01 Impaired fasting glucose; E78.5 Hyperlipidemia, unspecified; Z12.5 Encounter for screening for malignant neoplasm of prostate
CPT/HCPCS: 36415; 80053; 80061; 83036; 84153; 85025; 85610

== ENCOUNTER 2023-07-01 09:25 | Outpatient (AMB) | payer OTHER, SELFPAY ==
[2023-07-01 09:35] VITALS: BP 146/85; PULSE 83; O2SAT 98; BMI 39.4
--- NOTE | 2023-07-01 09:35 | A.OFFPC_ITS ---
Vital Signs 07/01/23 09:35 Height 6 ft 4 in Weight 324 lb BMI 39.4 BP 146/85 H Blood Pressure Location Lt brachial Position Sitting Pulse 83 Pulse Source Pulse Oximeter Pulse Oximetry (%) 98 Oxygen Delivery Method Room Air Intake Visit Reasons: f/u hyperlipidemia Intake Note: Patient is here to follow up on hyperlipidemia, and refills on meds. Allergies No Known Allergies Allergy (Verified 07/01/23 09:40) Tobacco use date assessed: 07/01/23 Dental Screening Dental Screen Date: 07/01/23 Did you have a dental visit in the last 12 months?: No Did you have a dental problem in the last 6 months where you did not have access to dental care?: No Was dental information given to patient?: Patient has dentist HPI f/u hyperlipidemia HPI Details 43 y/o male presents to f/u hyperlipidem ia. Labs were drawn 05/20/23. Reviewed labs with pt. Triglycerides 242. TC 203. LDL 115. HDL 40. Pt reports he is s/p L microdiscectomy - notes ongoing pain and states they had recommended him home physical therapy as he has been having difficulty walking. [facility] Medical History (Updated 07/01/23 @ 10:31 by Ashu Yu) Hiatal hernia Low back pain Hx of renal calculi Depression Neuropathy Hyperlipidemia Major depressive disorder, recurrent, unspecified Binge-eating disorder, moderate Screening for prostate cancer Elevated liver enzymes Anxiety Ingrown toenail Left hip pain Seborrheic dermatitis of scalp Back pain with left-sided sciatica Diabetes type 2, uncontrolled Low HDL (under 40) BMI greater than 40 Essential hypertension Annual physical exam Surgical History (Updated 07/01/23 @ 10:24 by Ashu Yu) Status post lumbar microdiscectomy History of esophagogastroduodenoscopy (EGD) Family History Mother Diabetes Kidney problem Carpal tunnel syndrome Chronic knee pain after total replacement of knee joint Depression Father No problems noted. Brother Depression Social History Housing: Apartment Are you a primary zoo caretaker to a significant other at home: No Do you presently have visiting nurse or other home services: No Alcohol intake: current Alcohol intake frequency: holidays/special occasions only Comment: X-RAY PERFORMED -NO SUTURE IN ABDOMEN Patient Tobacco Use Status: Former Tobacco user Quit Date: 2013 Tobacco use type: Cigarette Years Smoked: since e-Cigarette/Vaping Use: Never Used Second Hand Smoke Exposure: No service: Yes Current occupational status: employed Current occupational exposures/hazards: No Cognitive needs: No Hearing needs: No Vision needs: No Questionnaire Thrive Questionnaire Date Thrive assessed: 11/10/21 RUDY-7 AMB Questionnaire RUDY-7 Date RUDY - 7 assessed: 05/20/23 Source: Developed by Drs. Iglesia Aguilera, Hayde Noonan, Sree Ornelas and colleagues, with an educational jenny from [employer]. Review of Systems Const Denies chills, Denies fatigue, Denies fever(s), Denies headache(s) and Denies weakness ENT Denies dizziness and Denies headache(s) Card Denies chest pain, Denies lightheadedness, Denies dyspnea and Denies other (Palp itations) Resp Denies cough, Denies dyspnea, Denies wheezing and Denies other ( shortness of breath) Musc Denies numbness and Denies tingling Neuro Denies dizziness, Denies headache(s), Denies numbness, Denies tingling, Denies paresthesias and Denies weakness Psych Denies anxiety and Denies depression Endo Denies fatigue Aller/Immun Denies wheezing Physical exam (Primary Care) Vital Signs: Last Vital Signs Pulse 83 07/01/23 09:35 BP 146/85 H 07/01/23 09:35 Pulse Ox 98 07/01/23 09:35 Oxygen Delivery Method Room Air 07/01/23 09:35 BMI result Body Mass Index 39.4 Tobacco/Smoking Status: Tobacco use Status Tobacco use date assessed 07/01/23 07/01/23 09:44 Patient Tobacco Use Status Former Tobacco user 07/01/23 09:37 Tobacco use type Cigarette 07/01/23 09:37 e-Cigarette/Vaping Use Never Used 07/01/23 09:37 Thrive Assessment: Date of Thrive Assessment Date Thrive assessed 11/10/21 07/01/23 09:37 Const General: no acute distress and well developed Nutritional Appearance: well nourished Orientation/consciousness: patient oriented x3 HENMT Head: Yes normocephalic and Yes atraumatic Eyes General: appearance normal, both eyes and all related structures Pupils: Equal, round and reactive pupils present EOM: EOMs intact bilaterally Resp Effort & Inspection: normal respiratory effort Auscultation: clear to auscultation bilaterally Cardio Rate: regular rate Rhythm: regular rhythm Heart sounds: S1 normal heart sound present, S2 normal heart sound present, no gallops, no murmurs and no rubs Neuro General: patient oriented x3 and gait normal Cranial nerves: Yes Equal, round and reactive pupils present Psych Affect: normal affect Assessment and Plan Assessment & Plan (1) Status post lumbar discectomy: Code(s): Z98.890 - Other specified postprocedural states Plan: Had?significant?pain?after?surgery?and?still?has?ongoing?pain?for?which?he?is?be ing?managed?by?his?surgeon Has?an?upcoming?appointment?with?his?surgeon?next?week,??Brittny. Melina till?using?some?opioid?medications Continue?adjunct?medications?such?as?amitriptyline,?bupropion,?gabapentin?and?me loxicam. He?can?also?use?some?Tylenol?in?the?evening?and?I?will?give?him?a?script?of ?diclofenac?gel. Had?also?tried?lidocaine?patches?which?did?not?help Continue?tizanidine (2) Hyperlipidemia: Code(s): E78.5 - Hyperlipidemia, unspecified Plan: HDL?has?improved?however?LDL?is?above?goal?of?less?than?100?for?patient?with?hamilton betes Will?continue?to?monitor?and?I?encouraged?a? diet?lower?in?saturated?fats?and?cholesterol (3) Thrombocytopenia: Code(s): D69.6 - Thrombocytopenia, unspecified Plan: Recheck?CBC?with?lab Orders: Orders Complete Blood Count Auto Diff Today D69.6 - Thrombocytopenia, unspecified, Z00.00 - Encounter for general adult medical examination without abnormal findings Lipid Panel Today E78.6 - Lipoprotein deficiency, Z00.00 - Encounter for general adult medical examination without abnormal findings Hemoglobin A1c Today E11.9 - Type 2 diabetes mellitus without complications, R7 3.01 - Impaired fasting glucose Comprehensive [place]. Panel Fast Today Z00.00 - Encounter for general adult medical examination without abnormal findings, Z98.890 - Other specified postprocedural states Medications: New diclofenac sodium 1% (Arthritis Pain (diclofenac)) 4 grams topical QID 200 grams 2RF 30 days Coding Level of Care Code Est Pt Level 3 (75130) Diagnoses Status post lumbar discectomy Z98.890 Hyperlipidemia E78.5 Thrombocytopenia D69.6
== END 2023-07-01 10:33 | disposition home or self-care (01) ==
PROVIDERS: PCP Family Medicine; Visit Provider Family Medicine
DX: E78.5 Hyperlipidemia, unspecified (principal); D69.6 Thrombocytopenia, unspecified; Z98.890 Other specified postprocedural states
CPT/HCPCS: 99213

== ENCOUNTER 2023-08-19 10:17 | Outpatient (REF) | payer OTHER, SELFPAY ==
[2023-08-19 11:51] LABS: Estimated Average Glucose 126 mg/dL
[2023-08-19 11:56] LABS: Basophils Absolute Auto 0.1 X10*3/uL (0.0-0.2); Basophils Percent Auto 0.8 % (0-2); Eosinophils Absolute Auto 0.1 X10*3/uL (0.0-0.4); Eosinophils Percent Auto 1.3 % (0-4); Hematocrit 46.6 % (42.0-52.0); Hemoglobin 15.7 g/dl (14.0-18.0); Imm Gran Abs Auto 0.02 X10*3/uL (0.00-0.03); Imm Gran Pct Auto 0.3 % (0.0-0.4); Lymphocytes Absolute Auto 2.6 X10*3/uL (1.2-4.9); Lymphocytes Percent Auto 40.4 % (20-40); MANUAL DIFF FLAG SCAN; Mean Corpuscular HGB Conc 33.7 g/dl (31.0-36.0); Mean Corpuscular Hemoglobin 31.1 pg (27.0-33.0); Mean Corpuscular Volume 92.3 fL (80.0-98.0); Monocytes Absolute Auto 0.5 X10*3/uL (0.1-1.2); Monocytes Percent Auto 7.4 % (2-11); Neutrophils Absolute Auto 3.2 x10*3/uL (2.0-8.3); Neutrophils Percent Auto 49.8 % (45-73); PLT CLUMP 1; Red Blood Count 5.05 X10*6/uL (4.60-5.80); Red Cell Distribution Width 12.5 % (11.0-16.0); SCAN SMEAR FLAG 1
[2023-08-19 12:38] LABS: SLIDE REVIEW VERIFIED
[2023-08-19 13:33] LABS: White Blood Count 6.4 X10*3/uL (4.8-10.8)
[2023-08-19 14:22] LABS: Alanine Aminotransferase 40 U/L (0-40); Albumin Level 4.3 g/dL (3.5-5.0); Alkaline Phosphatase 45 U/L (39-117); Anion Gap 9 (12-20); Aspartate Amino Transferase 33 U/L (5-37); Bilirubin Total 0.7 mg/dL (0.0-1.0); Blood Urea Nitrogen 13 mg/dL (9-16); Calcium 9.5 mg/dL (8.4-10.2); Carbon Dioxide 32 mmol/L (22-29); Chloride 107 mmol/L (96-108); Cholesterol 196 mg/dL (<200); Estimated Glomerular Filt Rate > 60; Glucose Fasting 131 mg/dL (60-99); HDL Cholesterol 35 mg/dL (>40); LDL Cholesterol Calculated 111 mg/dL (<100); Potassium 4.3 mmol/L (3.3-5.1); Sodium 144 mmol/L (135-145); Total Protein 7.4 g/dL (6.5-8.0); Triglycerides 251 mg/dL (<150)
== END 2023-08-19 10:18 | disposition home or self-care (01) ==
LOC: HO.WFDLDS 10:17
PROVIDERS: Visit Provider Family Medicine
DX: Z00.00 Encounter for general adult medical examination without abnormal findings (principal); D69.6 Thrombocytopenia, unspecified; E11.9 Type 2 diabetes mellitus without complications; Z98.890 Other specified postprocedural states
CPT/HCPCS: 36415; 80053; 80061; 83036; 85025

== ENCOUNTER 2023-08-26 11:28 | Outpatient (AMB) | payer OTHER, SELFPAY ==
--- NOTE | 2023-08-26 11:33 | A.OFFPC_ITS ---
Vital Signs 08/26/23 11:35 Height 6 ft 4 in Weight 321 lb 6 oz BMI 39.1 BP 136/86 Blood Pressure Location Rt brachial Position Sitting Pulse 75 Pulse Source Pulse Oximeter Pulse Oximetry (%) 98 Oxygen Delivery Method Room Air Intake Visit Reasons: follow-up diabetes, ADHD and tachycardia Intake Note: Patient is here to follow up for diabetes, ADHD, and tachycardia. Patient reports, whatever the red stuff was on my face and scalp has not gone away. Patient reports, bumps on the back, I have applied heat and they're still there. Patient reports, my feet seem to be inflamed. Manager Compliance Required: No Accompanied by: Self / Same As Patient Allergies No Known Allergies Allergy (Verified 08/26/23 11:40) Medication List - Last Reconciled 08/26/23 by Patrick Mullen MD amitriptyline 100 mg PO BEDTIME 30 days bupropion HCl XL 300 mg PO QAM 30 days calcium polycarbophil (Fiber Laxative (calcium polycarbophil)) 625 mg PO DAILY calcium polycarbophil (FiberCon) 625 mg PO DAILY 90 days dextroamphetamine-amphetamine 5 mg ER (Adderall XR) 1 cap PO QAM diclofenac sodium 1% (Arthritis Pain (diclofenac)) 4 grams topical QID 30 days docusate sodium (Colace) 250 mg (2.5 x 100 mg) PO BEDTIME gabapentin 400 mg PO TID 90 days lidocaine 5% (Lidoderm) 2 patches topical DAILY 30 days meloxicam 15 mg PO DAILY 30 days methylcellulose (laxative) (Fiber Laxative (methylcellulose)) 500 mg PO BID metoprolol succinate ER 50 mg PO DAILY 90 days oxycodone 5 mg PO TID PRN quetiapine (Seroquel) 50 mg PO BEDTIME 30 days tizanidine 4 mg PO Q8H PRN Tobacco use date assessed: 07/01/23 Dental Screening Dental Screen Date: 07/01/23 HPI follow-up diabetes, ADHD and tachycardia HPI Details 43 y/o male presents to f/u diabetes, AD HD, HLD. Labs were drawn 08/19/23. Reviewed labs with pt. Triglycerides 251. TC 196. LDL 111. HDL low at 35. A1c today 08/26/23 6.0%. Diet controlled diabetes. Pt notes left lower extremity weakness. [facility] Medical History (Updated 08/26/23 @ 12:07 by Ashu Yu) Hiatal hernia Low back pain Hx of renal calculi Depression Neuropathy Hyperlipidemia Major depressive disorder, recurrent, unspecified Binge-eating disorder, moderate Screening for prostate cancer Elevated liver enzymes Anxiety Ingrown toenail Left hip pain Seborrheic dermatitis of scalp Back pain with left-sided sciatica Diabetes type 2, uncontrolled Low HDL (under 40) BMI greater than 40 Essential hypertension Annual physical exam Surgical History (Updated 07/01/23 @ 10:24 by Ashu Yu) Status post lumbar microdiscectomy History of esophagogastroduodenoscopy (EGD) Family History Mother Diabetes Kidney problem Carpal tunnel syndrome Chronic knee pain after total replacement of knee joint Depression Father No problems noted. Brother Depression Social History Housing: Apartment Are you a primary neonatal intensive care nurse to a significant other at home: No Do you presently have visiting nurse or other home services: No Alcohol intake: current Alcohol intake frequency: holidays/special occasions only Comment: X-RAY PERFORMED -NO SUTURE IN ABDOMEN Patient Tobacco Use Status: Former Tobacco user Quit Date: 2013 Tobacco use type: Cigarette Years Smoked: since ' e-Cigarette/Vaping Use: Never Used Second Hand Smoke Exposure: No service: Yes Current occupational status: employed Current occupational exposures/hazards: No Cognitive needs: No Hearing needs: No Vision needs: No Questionnaire PHQ-9 Over the last 2 weeks, how often have you been bothered by any of the following problems? 1. Little interest or pleasure in doing things: more than half the days 2. Feeling down, depressed, or hopeless: several days 3. Trouble falling or staying asleep, or sleeping too much: more than half the days 4. Feeling tired or having little energy: several days 5. Poor appetite or overeating: several days 6. Feeling bad about yourself - or that you are a failure or have let yourself o r your family down: more than half the days 7. Trouble concentrating on things, such as reading the newspaper or watching television: more than half the days 8. Moving or speaking so slowly that other people could have noticed. Or the opposite - being so fidgety or restless that you have been moving around a lot more than usual: several days 9. Thoughts that you would be better off or of hurting yourself in some way: not at all Total score: 12 Depression Screening Interpretation: Positive Depression Screening Follow-up: Existing condition and In treatment Depression Screening Done: Yes 47930 - PHQ-9 Billing: Yes Source: Developed by Drs. Iglesia Aguilera, Hayde Noonan, Sree Ornelas and colleagues, with an educational jenny from [employer]. Thrive Questionnaire Date Thrive assessed: 11/10/21 RUDY-7 AMB Questionnaire RUDY-7 Date RUDY - 7 assessed: 05/20/23 Source: Developed by Drs. Iglesia Aguilera, Hayde Noonan, Sree Ornelas and colleagues, with an educational jenny from [employer]. Review of Systems Const Denies chills, Denies fatigue, Denies fever(s), Denies headache(s) and Denies weakness ENT Denies dizziness and Denies headache(s) Card Denies chest pain, Denies lightheadedness, Denies dyspnea and Denies other (Palpitations) Resp Denies cough, Denies dyspnea, Denies wheezing and Denies other ( shortness of breath) Musc Denies numbness and Denies tingling Neuro Denies dizziness, Denies headache(s), Denies numbness, Denies tingling, Denies paresthesias and Denies weakness Psych Denies anxiety and Denies depression Endo Denies fatigue Aller/Immun Denies wheezing Physical exam (Primary Care) Vital Signs: Last Vital Signs Pulse 75 08/26/23 11:35 BP 136/86 08/26/23 11:35 Pulse Ox 98 08/26/23 11:35 Oxygen Delivery Method Room Air 08/26/23 11:35 BMI result Body Mass Index 39.1 Tobacco/Smoking Status: Tobacco use Status Tobacco use date assessed 07/01/23 08/26/23 11:33 Patient Tobacco Use Status Former Tobacco user 08/26/23 11:33 Tobacco use type Cigarette 08/26/23 11:33 e-Cigarette/Vaping Use Never Used 08/26/23 11:33 PHQ-9: PHQ-9 Score PHQ-9: Total score 12 08/26/23 11:44 Depression Screening Interpretation: Positive Depression Screening Follow-up: Existing condition and In treatment Thrive Assessment: Date of Thrive Assessment Date Thrive assessed 11/10/21 08/26/23 11:33 Const General: no acute distress and well developed Nutritional Appearance: obese Orientation/consciousness: patient oriented x3 HENMT Head: Yes normocephalic and Yes atraumatic Eyes General: appearance normal, both eyes and all related structures Pupils: Equal, round and reactive pupils present EOM: EOMs intact bilaterally Resp Effort & Inspection: normal respiratory effort Auscultation: clear to auscultation bilaterally Cardio Rate: regular rate Rhythm: regular rhythm Heart sounds: S1 normal heart sound present, S2 normal heart sound present, no gallops, no murmurs and no rubs Neuro General: patient oriented x3 and gait normal Cranial nerves: Yes Equal, round and reactive pupils present Psych Affect: normal affect Assessment and Plan Assessment & Plan (1) Diabetes type 2, controlled: Code(s): E11.9 - Type 2 diabetes mellitus without complications Plan: A1c?6.0%.??Good?control. Continue?diet?control (2) Hyperlipidemia: Code(s): E78.5 - Hyperlipidemia, unspecified Plan: LDL?is?too?high?for?a?patient?with?diabetes;?goal?is?less?than?100 Also?HDL?is?low Trial?atorvastatin Work?on?weight?loss (3) Low HDL (under 40): Code(s): E78.6 - Lipoprotein deficiency Plan: As?above (4) Difficulty sleeping: Code(s): G47.9 - Sleep disorder, unspecified Plan: Partly?due?to?discomfort?after?surgery Continue?Seroquel Resume?tizanidine Continue?gabapentin (5) Difficulty concentrating: Code(s): R41.840 - Attention and concentration deficit Plan: Patient?is?now?on?Adderall?and?has?a?psych?me d?provider?who?is?managing?his?medication. Stable (6) Status post lumbar discectomy: Code(s): Z98.890 - Other specified postprocedural states Plan: S/p?lumbar?diskectomy Patient?still?has?significant?left?lower?extremity?weakness?with?3/5?strength?an d?uses?a?cane?to?walk?with?significant?limp?and?unsteady?gait. Continue?using?cane?and?I?will?fill?out?a?handicap?placard?today. Follow-up?with??as?recommended Continue?physical?therapy (7) Weakness of left lower extremity: Code(s): R29.898 - Other symptoms and signs involving the musculoskeletal system Plan: As?above (8) Rash: Code(s): R21 - Rash and other nonspecific skin eruption Plan: Still?has?ongoing?rash?in?blankenship?and?on?face Referred?to?dermatology Orders: Referrals Dermatology Referral R21 - Rash and other nonspecific skin eruption Medications: New atorvastatin 20 mg PO BEDTIME 90 days 90 tabs 2RF Changed From tizanidine 4 mg PO Q8H PRN To tizanidine 4 mg PO Q8H 30 days PRN 90 caps 2RF muscle spasticity Coding Level of Care Code Est Pt Level 4 (36423) Diagnoses Diabetes type 2, controlled E11.9 Hyperlipidemia E78.5 Low HDL (under 40) E78.6 Difficulty sleeping G47.9 Difficulty concentrating R41.840 Status post lumbar discectomy Z98.890 Weakness of left lower extremity R29.898 Rash R21
[2023-08-26 11:35] VITALS: BP 136/86; PULSE 75; O2SAT 98; BMI 39.1
== END 2023-08-26 12:15 | disposition home or self-care (01) ==
PROVIDERS: PCP Family Medicine; Visit Provider Family Medicine
DX: E11.69 Type 2 diabetes mellitus with other specified complication (principal); E78.5 Hyperlipidemia, unspecified; E78.6 Lipoprotein deficiency; G47.9 Sleep disorder, unspecified; R41.840 Attention and concentration deficit; Z98.890 Other specified postprocedural states; R29.898 Other symptoms and signs involving the musculoskeletal system; R21 Rash and other nonspecific skin eruption
CPT/HCPCS: 99214

== ENCOUNTER 2023-09-28 12:47 | Outpatient (REF) | payer OTHER, SELFPAY | END 2023-09-28 12:48 | disposition home or self-care (01) | LOC: HO.HAP 12:47 | PROVIDERS: Visit Provider Family Medicine | DX: Z13.89 Encounter for screening for other disorder (principal) ==

== ENCOUNTER 2023-11-26 09:57 | Outpatient (REF) | payer OTHER, SELFPAY ==
[2023-11-26 12:00] LABS: Alanine Aminotransferase 43 U/L (0-40); Albumin Level 4.6 g/dL (3.5-5.0); Alkaline Phosphatase 56 U/L (39-117); Anion Gap 14 (12-20); Aspartate Amino Transferase 43 U/L (5-37); Blood Urea Nitrogen 11 mg/dL (9-16); Calcium 9.3 mg/dL (8.4-10.2); Carbon Dioxide 27 mmol/L (22-29); Chloride 104 mmol/L (96-108); Cholesterol 183 mg/dL (<200); Estimated Glomerular Filt Rate > 60; Glucose Fasting 165 mg/dL (60-99); HDL Cholesterol 34 mg/dL (>40); LDL Cholesterol Calculated 113 mg/dL (<100); Potassium 3.7 mmol/L (3.3-5.1); Sodium 141 mmol/L (135-145); Total Protein 7.8 g/dL (6.5-8.0); Triglycerides 181 mg/dL (<150)
== END 2023-11-26 09:58 | disposition home or self-care (01) ==
LOC: HO.WFDLDS 09:57
PROVIDERS: Visit Provider Family Medicine
DX: Z00.00 Encounter for general adult medical examination without abnormal findings (principal); E78.6 Lipoprotein deficiency; M47.816 Spondylosis without myelopathy or radiculopathy, lumbar region
CPT/HCPCS: 36415; 80053; 80061

== ENCOUNTER 2023-12-02 09:23 | Outpatient (AMB) | payer OTHER, SELFPAY ==
--- NOTE | 2023-12-02 09:33 | MHC.PC.OV ---
Vital Signs 12/02/23 09:42 Height 6 ft 4 in Weight 314 lb 6 oz BMI 38.3 BP 106/80 Blood Pressure Location Lt brachial Position Sitting Respiration 18 Pulse 130 H Pulse Source Pulse Oximeter Temp 98 F Temp Source Tympanic Pulse Oximetry (%) 98 Oxygen Delivery Method Room Air Intake Visit Reasons: f/u hyperlipidemia, diabetes Intake Note: follow up for diabetes hyperlipidemia Allergies No Known Allergies Allergy (Verified 12/02/23 09:40) Tobacco use date assessed: 07/01/23 Dental Screening Dental Screen Date: 07/01/23 HPI f/u hyperlipidemia, diabetes HPI Details 43 y/o male presents to f/u HLD, diabetes. A1c today 12/02/23 6.7%. Had started him on artovastatin. Labs drawn 11/26/23. Reviewed labs with pt. Triglycerides 181. TC 183. LDL 113. HDL 34. Elevated liver enzymes - AST from 33 to 43. ALT 40 to 43. Has complaints of brain fog. Blood pressure today 106/80, 130p. He notes he has not drank much water today and was in a hurry to get to the office. HPI Comments History of Present Illness Details Documentation assistance for Patrick Mullen MD, was provided by Ashu Yu,? Collections Professional on 12/02/2023 at 10:22 AM EST. I, Dr. Mullen, have read, observed, and verified documentation. [facility] Medical History (Updated 12/02/23 @ 10:22 by Ashu Yu) Hiatal hernia Low back pain Hx of renal calculi Depression Neuropathy Hyperlipidemia Major depressive disorder, recurrent, unspecified Binge-eating disorder, moderate Screening for prostate cancer Elevated liver enzymes Anxiety Ingrown toenail Left hip pain Seborrheic dermatitis of scalp Back pain with left-sided sciatica Diabetes type 2, uncontrolled Low HDL (under 40) BMI greater than 40 Essential hypertension Annual physical exam Surgical History (Updated 07/01/23 @ 10:24 by Ashu Yu) Status post lumbar microdiscectomy History of esophagogastroduodenoscopy (EGD) Family History Mother Diabetes Kidney problem Carpal tunnel syndrome Chronic knee pain after total replacement of knee joint Depression Father No problems noted. Brother Depression Social History Housing: Apartment Are you a primary care transport nurse to a significant other at home: No Do you presently have visiting nurse or other home services: No Alcohol intake: current Alcohol intake frequency: holidays/special occasions only Comment: X-RAY PERFORMED -NO SUTURE IN ABDOMEN Patient Tobacco Use Status: Former Tobacco user Tobacco use type: Cigarette Years Smoked: since 30' e-Cigarette/Vaping Use: Never Used Second Hand Smoke Exposure: No service: Yes Current occupational status: employed Current occupational exposures/hazards: No Cognitive needs: No Hearing needs: No Vision needs: No Questionnaire Thrive Questionnaire Date Thrive assessed: 11/10/21 RUDY-7 AMB Questionnaire RUDY-7 Date RUDY - 7 assessed: 05/20/23 Source: Developed by Drs. Iglesia Aguilera, Hayde Noonan, Sree Ornelas and colleagues, with an educational jenny from [employer]. Review of Systems Const Denies chills, Denies fatigue, Denies fever(s), Denies headache(s) and Denies weakness ENT Denies dizziness and Denies headache(s) Card Denies dyspnea Resp Denies cough, Denies dyspnea, Denies wheezing and Denies other (shortness of breath) Musc Denies numbness and Denies tingling Neuro Denies dizziness, Denies headache(s), Denies numbness, Denies tingling and Denies weakness Psych Denies anxiety and Denies depression Endo Denies fatigue Aller/Immun Denies wheezing Physical exam (Primary Care) Vital Signs: Last Vital Signs Temp 98 F 12/02/23 09:42 Pulse 130 H 12/02/23 09:42 Resp 18 12/02/23 09:42 BP 106/80 12/02/23 09:42 Pulse Ox 98 12/02/23 09:42 Oxygen Delivery Method Room Air 12/02/23 09:42 BMI result Body Mass Index 38.3 Tobacco/Smoking Status: Tobacco use Status Tobacco use date assessed 07/01/23 12/02/23 09:34 Patient Tobacco Use Status Former Tobacco user 12/02/23 09:34 Tobacco use type Cigarette 12/02/23 09:34 e-Cigarette/Vaping Use Never Used 12/02/23 09:34 Thrive Assessment: Date of Thrive Assessment Date Thrive assessed 11/10/21 12/02/23 09:34 Const General: well developed; No acute distress Nutritional Appearance: well nourished Orientation/consciousness: patient oriented x3 [facility] Head: Yes normocephalic and Yes atraumatic Eyes General: appearance normal, both eyes and all related structures Pupils: Equal, round and reactive pupils present EOM: EOMs intact bilaterally Resp Effort & Inspection: normal respiratory effort Auscultation: clear to auscultation bilaterally Cardio Rate: tachycardic Rhythm: regular rhythm Heart sounds: S1 normal heart sound present, S2 normal heart sound present, no gallops, no murmurs and no rubs Neuro General: patient oriented x3 and gait normal Cranial nerves: Yes Equal, round and reactive pupils present Psych Affect: normal affect Assessment and Plan Assessment & Plan (1) Essential hypertension: Code(s): I10 - Essential (primary) hypertension Plan: Blood?pressure?is?a?little?low?today?at?his?heart?rate?is?elevated. He?notes?that?he?was?in?a?hurry?to?get?here?and?has?had?nothing?to?drink?this?morning Encouraged?increased?hydration He?has?a?blood?pressure?cuff?at?home?and?he?will?let?me?know?if?blood?pressure?is?not?coming?up?and?or?heart?rate?is?not?coming?down He?is?asymptomatic (2) Diabetes type 2, controlled: Code(s): E11.9 - Type 2 diabetes mellitus without complications Plan: A1c?has?climbed?to?6.7%.??Goal?is?less?than?7.0% Still?controlled?but?climbing Encouraged?diet?lower?in?sugars?and?starches.??Encouraged?ongoing?weight?loss (3) Hyperlipidemia: Code(s): E78.5 - Hyperlipidemia, unspecified Plan: LDL?cholesterol?is?still?a?little?high?and?stable. HDL?is?a?little?low Continue?atorvastatin?as?prescribed. Encouraged?more?exercise?and?encouraged?weight?loss If?he?is?still?above?goal?subsequently,?we?can?discuss?increasing?his?statin (4) Low HDL (under 40): Code(s): E78.6 - Lipoprotein deficiency Plan: As?above,?encouraged?exercise (5) Elevated liver enzymes: Code(s): R74.8 - Abnormal levels of other serum enzymes Plan: Mildly?elevated?liver?enzymes. May?be?due?to?recent?COVID?infection?or?recent?weight?gain?though?he?is?already?starting?to?lose?weight?again We?can?recheck?this?at?subsequent?lab?draw (6) Brain fog: Code(s): R41.89 - Other symptoms and signs involving cognitive functions and awareness Plan: Patient?has?had?brain?fog?since?2022 More?recently?has?had?another?bout?of?COVID?and?he?is?concerned?regarding?long?COVID Referred?to?neuropsychiatry He?notes?strong?family?history?of?dementia?in?grandmother?and?mother May?need?imaging Orders: Orders Lipid Panel Today E78.6 - Lipoprotein deficiency, Z00.00 - Encounter for general adult medical examination without abnormal findings Comprehensive [place]. Panel Fast Today R74.8 - Abnormal levels of other serum enzymes, Z00.00 - Encounter for general adult medical examination without abnormal findings Referrals Neuropsychiatry Referral R41.89 - Other symptoms and signs involving cognitive functions and awareness Coding Level of Care Code Est Pt Level 4 (20635) Diagnoses Essential hypertension I10 Diabetes type 2, controlled E11.9 Hyperlipidemia E78.5 Low HDL (under 40) E78.6 Elevated liver enzymes R74.8 Brain fog R41.89
[2023-12-02 09:42] VITALS: BP 106/80; PULSE 130; RESP 18; TEMP 36.6; O2SAT 98; BMI 38.3
== END 2023-12-02 10:35 | disposition home or self-care (01) ==
PROVIDERS: PCP Family Medicine; Visit Provider Family Medicine
DX: I10 Essential (primary) hypertension (principal); E11.9 Type 2 diabetes mellitus without complications; E78.5 Hyperlipidemia, unspecified; E78.6 Lipoprotein deficiency; R74.8 Abnormal levels of other serum enzymes; R41.89 Other symptoms and signs involving cognitive functions and awareness
CPT/HCPCS: 99214

== ENCOUNTER 2024-03-01 10:58 | Outpatient (REF) | payer OTHER, SELFPAY ==
[2024-03-01 14:54] LABS: Alanine Aminotransferase 53 U/L (0-40); Albumin Level 4.5 g/dL (3.5-5.0); Alkaline Phosphatase 57 U/L (39-117); Anion Gap 11 (12-20); Aspartate Amino Transferase 52 U/L (5-37); Bilirubin Total 0.9 mg/dL (0.0-1.0); Blood Urea Nitrogen 16 mg/dL (9-16); Calcium 9.6 mg/dL (8.4-10.2); Carbon Dioxide 27 mmol/L (22-29); Chloride 105 mmol/L (96-108); Cholesterol 115 mg/dL (<200); Estimated Glomerular Filt Rate > 60; Glucose Fasting 167 mg/dL (60-99); HDL Cholesterol 28 mg/dL (>40); LDL Cholesterol Calculated 53 mg/dL (<100); Potassium 4.4 mmol/L (3.3-5.1); Sodium 139 mmol/L (135-145); Total Protein 7.6 g/dL (6.5-8.0); Triglycerides 174 mg/dL (<150)
== END 2024-03-01 10:59 | disposition home or self-care (01) ==
LOC: HO.WFDLDS 10:58
PROVIDERS: Visit Provider Family Medicine
DX: Z00.00 Encounter for general adult medical examination without abnormal findings (principal); E78.6 Lipoprotein deficiency; R74.8 Abnormal levels of other serum enzymes
CPT/HCPCS: 36415; 80053; 80061

== ENCOUNTER 2024-03-08 09:21 | Outpatient (AMB) | payer OTHER, SELFPAY ==
--- NOTE | 2024-03-08 09:35 | MHC.PC.OV ---
Vital Signs 03/08/24 09:43 Height 6 ft 4 in Weight 317 lb 6 oz BMI 38.6 BP 94/55 L Blood Pressure Location Rt brachial Position Sitting Respiration 16 Pulse 76 Pulse Source Pulse Oximeter Temp 97.7 F Temp Source Temporal Artery Scan Pulse Oximetry (%) 97 Oxygen Delivery Method Room Air Intake Visit Reasons: f/u diabetes, HTN, brain fog Allergies No Known Allergies Allergy (Verified 12/02/23 09:40) Tobacco use date assessed: 07/01/23 Dental Screening Dental Screen Date: 07/01/23 HPI f/u diabetes, HTN, brain fog HPI Details 43 y/o male presents to f/u diabetes, hypertension, brain fog and labs. Last A1c 12/02/23 6.7%. A1c today 03/08/24 is 6.3%. Diet controlled. BP today 94/55, 76p. He is on metoprolol 50mg daily. Labs drawn 03/01/24. Reviewed labs with pt. Elevated liver enzymes - AST 52, ALT 53. Triglycerides 174. TC 115. LDL 53. HDL low at 28. Ongoing chronic pain. Notes gabapentin has been helping with pain. Also on amitryiptyline 100mg. Pain level had greatly increased a week and half ago and is unsure why. Notes dark spots on his testicles. Reports ongoing brain fog/memory changes. HPI Comments History of Present Illness Details Documentation assistance for Patrick Mullen MD, was provided by Ashu Yu,? Real Estate Director on 03/08/2024 at 10:49 AM EST. I, Dr. Mullen, have read, observed, and verified documentation. [facility] Medical History (Updated 03/08/24 @ 10:49 by Ashu Yu) Hiatal hernia Low back pain Hx of renal calculi Depression Neuropathy Hyperlipidemia Major depressive disorder, recurrent, unspecified Binge-eating disorder, moderate Screening for prostate cancer Elevated liver enzymes Anxiety Ingrown toenail Left hip pain Seborrheic dermatitis of scalp Back pain with left-sided sciatica Diabetes type 2, uncontrolled Low HDL (under 40) BMI greater than 40 Essential hypertension Annual physical exam Surgical History (Updated 07/01/23 @ 10:24 by Ashu Yu) Status post lumbar microdiscectomy History of esophagogastroduodenoscopy (EGD) Family History Mother Diabetes Kidney problem Carpal tunnel syndrome Chronic knee pain after total replacement of knee joint Depression Father No problems noted. Brother Depression Social History Housing: Apartment Are you a primary nurse care manager to a significant other at home: No Do you presently have visiting nurse or other home services: No Alcohol intake: current Alcohol intake frequency: holidays/special occasions only Comment: X-RAY PERFORMED -NO SUTURE IN ABDOMEN Patient Tobacco Use Status: Former Tobacco user Tobacco use type: Cigarette Years Smoked: since e-Cigarette/Vaping Use: Never Used Second Hand Smoke Exposure: No service: Yes Current occupational status: employed Current occupational exposures/hazards: No Cognitive needs: No Hearing needs: No Vision needs: No Questionnaire Thrive Questionnaire Date Thrive assessed: 11/10/21 RUDY-7 AMB Questionnaire RUDY-7 Date RUDY - 7 assessed: 05/20/23 Source: Developed by Drs. Iglesia Aguilera, Hayde Noonan, Sree Ornelas and colleagues, with an educational jenny from [employer]. Review of Systems Const Denies chills, Denies fatigue, Denies fever(s), Denies headache(s) and Denies weakness ENT Denies dizziness and Denies headache(s) Card Denies chest pain, Denies lightheadedness, Denies dyspnea and Denies other (Palpitations) Resp Denies cough, Denies dyspnea, Denies wheezing and Denies other ( shortness of breath) Musc Denies numbness and Denies tingling Neuro Denies dizziness, Denies headache(s), Denies numbness, Denies tingling, Denies paresthesias and Denies weakness Psych Denies anxiety and Denies depression Endo Denies fatigue Aller/Immun Denies wheezing Physical exam (Primary Care) Vital Signs: Last Vital Signs Temp 97.7 F 03/08/24 09:43 Pulse 76 03/08/24 09:43 Resp 16 03/08/24 09:43 BP 94/55 L 03/08/24 09:43 Pulse Ox 97 03/08/24 09:43 Oxygen Delivery Method Room Air 03/08/24 09:43 BMI result Body Mass Index 38.6 Tobacco/Smoking Status: Tobacco use Status Tobacco use date assessed 07/01/23 03/08/24 09:36 Patient Tobacco Use Status Former Tobacco user 03/08/24 09:36 Tobacco use type Cigarette 03/08/24 09:36 e-Cigarette/Vaping Use Never Used 03/08/24 09:36 Thrive Assessment: Date of Thrive Assessment Date Thrive assessed 11/10/21 03/08/24 09:36 Const General: no acute distress and well developed Nutritional Appearance: well nourished and obese Orientation/consciousness: patient oriented x3 HENMT Head: Yes normocephalic and Yes atraumatic Eyes General: appearance normal, both eyes and all related structures Pupils: Equal, round and reactive pupils present EOM: EOMs intact bilaterally Resp Effort & Inspection: normal respiratory effort Auscultation: clear to auscultation bilaterally Cardio Rate: regular rate Rhythm: regular rhythm Heart sounds: S1 normal heart sound present, S2 normal heart sound present, no gallops, no murmurs and no rubs Neuro General: patient oriented x3 and gait normal Cranial nerves: Yes Equal, round and reactive pupils present Psych Affect: normal affect Coding Level of Care Code Est Pt Level 4 (96699) Diagnoses Altered mental status R41.82 Memory changes R41.3 Diabetes type 2, controlled E11.9 Essential hypertension I10 Chronic pain syndrome G89.4 Lump of skin R22.9 Assessment & Plan Assessment & Plan (1) Altered mental status: Code(s): R41.82 - Altered mental status, unspecified Category: Medical Plan: Ongoing?brain?fog?and?memory?changes?despite?multiple?medications?with?his?psych?med?provider Check?MRI?brain (2) Memory changes: Code(s): R41.3 - Other amnesia Category: Medical Plan: As?above (3) Diabetes type 2, controlled: Code(s): E11.9 - Type 2 diabetes mellitus without complications Category: Medical Plan: Diet-controlled?diabetes?and?A1c?is?6.3%. Goal?is?less?than?7.0%.??Controlled Continue?diet?control (4) Essential hypertension: Code(s): I10 - Essential (primary) hypertension Category: Medical Plan: Blood?pressures?are?running?low?for?a?patient?of?his?stature?and?habitus Will?change?metoprolol?from?50?mg?daily?to?25?mg?daily Also,?low?blood?pressures?or?beta-blockers?can?worsen brain?fog (5) Chronic pain syndrome: Code(s): G89.4 - Chronic pain syndrome Category: Medical Plan: Ongoing?chronic?back?pain Has?been?[place] [place] Will?make?new?referral?to?[facility]?pain?management (6) Lump of skin: Code(s): R22.9 - Localized swelling, mass and lump, unspecified Category: Medical Plan: Small 0.5 cm lesion from Ingrown?hair?on?back?with?small?abscess.??No?erythema?or?tenderness. He?can?use?warm?compresses Advised?again?breaking?the?skin?to?resolve?this. Orders: Orders MR head/brain w con Today R41.3 - Other amnesia, R41.82 - Altered mental status, unspecified, R41.89 - Other symptoms and signs involving cognitive functions and awareness Referrals Pain Management Referral G62.9 - Polyneuropathy, unspecified, G89.4 - Chronic pain syndrome, M54.16 - Radiculopathy, lumbar region, M54.9 - Dorsalgia, unspecified, M79.606 - Pain in leg, unspecified, Z87.828 - Personal history of other (healed) physical injury and trauma Medications: Changed From metoprolol succinate ER 50 mg PO DAILY 90 days 90 tabs 3RF To metoprolol succinate ER 25 mg PO DAILY 90 days 90 tabs 3RF
[2024-03-08 09:43] VITALS: BP 94/55; PULSE 76; RESP 16; TEMP 36.5; O2SAT 97; BMI 38.6
== END 2024-03-08 10:51 | disposition home or self-care (01) ==
PROVIDERS: PCP Family Medicine; Visit Provider Family Medicine
DX: R41.82 Altered mental status, unspecified (principal); R41.3 Other amnesia; E11.9 Type 2 diabetes mellitus without complications; I10 Essential (primary) hypertension; G89.4 Chronic pain syndrome; R22.9 Localized swelling, mass and lump, unspecified

== ENCOUNTER → 2024-03-08 09:21 | Outpatient (BNVA) | payer OTHER, SELFPAY | PROVIDERS: PCP Family Medicine; Visit Provider Family Medicine | DX: R41.82 Altered mental status, unspecified (principal); R41.3 Other amnesia; E11.9 Type 2 diabetes mellitus without complications; I10 Essential (primary) hypertension; G89.4 Chronic pain syndrome; R22.9 Localized swelling, mass and lump, unspecified | CPT/HCPCS: 99212 ==

== ENCOUNTER → 2024-05-10 16:21 | Outpatient (BNV) | payer OTHER, SELFPAY | PROVIDERS: PCP Family Medicine; Visit Provider Radiology Diagnostic Radiology | DX: M54.50 Low back pain, unspecified (principal) | CPT/HCPCS: 70551 ==

== ENCOUNTER 2024-05-10 16:22 | Outpatient (REF) | payer OTHER, SELFPAY ==
--- NOTE | ~2024-05-10 | MR_ITS ---
EXAMINATION: MR BRAIN WITHOUT IV CONTRAST HISTORY: R41.82 - Altered mental status, unspecified TECHNIQUE: Sagittal T1, and axial T1, FLAIR, T2, gradient echo, and diffusion weighted MR images of the brain were obtained. COMPARISON: None FINDINGS: The brain parenchyma is unremarkable, demonstrating normal thao/white differentiation. No foci of abnormal signal intensity are identified. The ventricular system is normal in size and configuration. There is no mass effect or midline shift. No intra or extra-axial fluid collections are identified. There are no foci of restricted diffusion. Normal vascular flow voids are noted in the basilar and carotid arteries. The visualized paranasal sinuses are clear. MR/MR head/brain wo con IMPRESSION: Unremarkable MRI of the brain without contrast. Electronically signed by: Iglesia Ortiz MD 05/11/2024 07:49 AM EST
== END 2024-05-10 16:23 | disposition home or self-care (01) ==
LOC: HO.MRI 16:22
PROVIDERS: PCP Family Medicine; Visit Provider Family Medicine
DX: R41.82 Altered mental status, unspecified (principal); R41.3 Other amnesia; R41.89 Other symptoms and signs involving cognitive functions and awareness
CPT/HCPCS: 70551

== ENCOUNTER 2024-05-16 13:39 | Outpatient (AMB) | payer OTHER, SELFPAY ==
--- NOTE | 2024-05-16 13:44 | A.OFFPC_ITS ---
Vital Signs 05/16/24 13:47 Height 6 ft 4 in Weight 320 lb BMI 38.9 BP 127/72 Blood Pressure Location Rt brachial Position Sitting Respiration 13 Pulse 81 Pulse Source Pulse Oximeter Temp 95.9 F L Temp Source Skin Pulse Oximetry (%) 97 Oxygen Delivery Method Room Air Intake Visit Reasons: f/u MRI, chronic conditions Intake Note: follow up on mri Dressing Room Porter Required: No Allergies No Known Allergies Allergy (Verified 05/16/24 13:45) Medication List - Last Reconciled 05/16/24 by Patrick Mullen MD amitriptyline 100 mg PO BEDTIME 30 days atomoxetine 10 mg PO QAM atorvastatin 20 mg PO BEDTIME 90 days bupropion HCl XL 300 mg PO QAM 30 days calcium polycarbophil (Fiber Laxative (calcium polycarbophil)) 625 mg PO DAILY calcium polycarbophil (FiberCon) 625 mg PO DAILY 90 days dextroamphetamine-amphetamine 30 mg ER (Adderall XR) 1 cap PO QAM gabapentin 400 mg PO TID 90 days meloxicam 15 mg PO DAILY 30 days methylcellulose (laxative) (Fiber Laxative (methylcellulose)) 500 mg PO BID metoprolol succinate ER 25 mg PO DAILY 90 days quetiapine 50 mg PO BEDTIME 90 days tizanidine 4 mg PO Q8H PRN 30 days Tobacco use date assessed: 07/01/23 Dental Screening Dental Screen Date: 07/01/23 HPI f/u MRI, chronic conditions HPI Details To?follow-up?memory?changes?in?brain?fog?as?well?as?follow- up?chronic?pain. Has?been?working?with?his?psychiatrist?adjusting?various?medications.??Has?not?r kenny?found?something?that?is?resolving?problem. I?had?referred?him?to?neuropsychiatry?in?he?has?not?been?contact?yet. Reviewed?MRI?with?patient: ?Essentially?unremarkable?exam. Ongoing?chronic?pain.??I?had?referred?him?to?pain?management.??He?says?insurance ?as ?told?him?that?he?has?not?undergone?physical?therapy?or?tried?medications?yet?ho wever?nothing?of?that?sort?is?true. Patient?has?tried?and?is?currently?trying?multiple?medications.??He?has?undergon e?physical?therapy. ?He?has?had?diagnostic?testing?including?x- rays,?bone?scan?and?MRI. He?has?had?sleep?apnea?ruled?out?by?sleep?study. He?has?not?been?taking?atorvastatin?or?gemfibrozil/fenofibrate?si nce?this?summer.??Last?cholesterol?level?showed?low?HDL?and?mildly?elevated?trig lycerides?but?otherwise?was?okay. [facility] Medical History (Updated 03/08/24 @ 10:49 by Ashu Yu) Hiatal hernia Low back pain Hx of renal calculi Depression Neuropathy Hyperlipidemia Major depressive disorder, recurrent, unspecified Binge-eating disorder, moderate Screening for prostate cancer Elevated liver enzymes Anxiety Ingrown toenail Left hip pain Seborrheic dermatitis of scalp Back pain with left-sided sciatica Diabetes type 2, uncontrolled Low HDL (under 40) BMI greater than 40 Essential hypertension Annual physical exam Surgical History (Updated 07/01/23 @ 10:24 by Ashu Yu) Status post lumbar microdiscectomy History of esophagogastroduodenoscopy (EGD) Family History Mother Diabetes Kidney problem Carpal tunnel syndrome Chronic knee pain after total replacement of knee joint Depression Father No problems noted. Brother Depression Social History Housing: Apartment Are you a primary care transition mgr to a significant other at home: No Do you presently have visiting nurse or other home services: No Alcohol intake: current Alcohol intake frequency: holidays/special occasions only Comment: X-RAY PERFORMED -NO SUTURE IN ABDOMEN Patient Tobacco Use Status: Former Tobacco user Tobacco use type: Cigarette Years Smoked: since ' e-Cigarette/Vaping Use: Never Used Second Hand Smoke Exposure: No service: Yes Current occupational status: employed Current occupational exposures/hazards: No Cognitive needs: No Hearing needs: No Vision needs: No Questionnaire PHQ-9 Over the last 2 weeks, how often have you been bothered by any of the following problems? [id number] - PHQ-9 Billing: Patient declined-do not bill Source: Developed by Drs. Iglesia Aguilera, Hayde Noonan, Sree Ornelas and colleagues, with an educational jenny from [employer]. Thrive Questionnaire Date Thrive assessed: 11/10/21 RUDY-7 AMB Questionnaire RUDY-7 Date RUDY - 7 assessed: 05/20/23 Source: Developed by Drs. Iglesia Aguilera, Hayde Noonan, Sree Ornelas and colleagues, with an educational jenny from [employer]. Review of Systems Const Denies chills, Denies fatigue, Denies fever(s), Denies headache(s) and Reports weakness ENT Denies dizziness and Denies headache(s) Card Denies chest pain, Denies lightheadedness, Denies dyspnea and Denies other (Palpitations) Resp Denies cough, Denies dyspnea, Denies wheezing and Denies other ( shortness of breath) Musc Details: Chronic?low?back?and?leg?pain?neuropathic/sciatic?pain?down?leg Reports numbness and Reports tingling Neuro Details: Memory?changes Denies dizziness, Denies headache(s), Reports numbness, Reports tingling, Reports paresthesias and Reports weakness Psych Denies anxiety and Denies depression Endo Denies fatigue Aller/Immun Denies wheezing Physical exam (Primary Care) Vital Signs: Last Vital Signs Temp 95.9 F L 05/16/24 13:47 Pulse 81 05/16/24 13:47 Resp 13 05/16/24 13:47 BP 127/72 05/16/24 13:47 Pulse Ox 97 05/16/24 13:47 Oxygen Delivery Method Room Air 05/16/24 13:47 BMI result Body Mass Index 38.9 Tobacco/Smoking Status: Tobacco use Status Tobacco use date assessed 07/01/23 05/16/24 13:44 Patient Tobacco Use Status Former Tobacco user 05/16/24 13:44 Tobacco use type Cigarette 05/16/24 13:44 e-Cigarette/Vaping Use Never Used 05/16/24 13:44 Thrive Assessment: Date of Thrive Assessment Date Thrive assessed 11/10/21 05/16/24 13:44 Const General: no acute distress and well developed Nutritional Appearance: well nourished Orientation/consciousness: patient oriented x3 [facility] Head: Yes normocephalic and Yes atraumatic Eyes General: appearance normal, both eyes and all related structures Pupils: Equal, round and reactive pupils present EOM: EOMs intact bilaterally Resp Effort & Inspection: normal respiratory effort Auscultation: clear to auscultation bilaterally Cardio Rate: regular rate Rhythm: regular rhythm Heart sounds: S1 normal heart sound present, S2 normal heart sound present, no gallops, no murmurs and no rubs Neuro General: patient oriented x3 and gait normal Cranial nerves: Yes Equal, round and reactive pupils present Psych Affect: normal affect Coding Level of Care Code Est Pt Level 4 (91641) Diagnoses Brain fog R41.89 Memory changes R41.3 Altered mental status R41.82 Difficulty concentrating R41.840 Chronic pain syndrome G89.4 Assessment & Plan Assessment & Plan (1) Brain fog: Code(s): R41.89 - Other symptoms and signs involving cognitive functions and awareness Category: Medical (2) Memory changes: Code(s): R41.3 - Other amnesia Category: Medical (3) Altered mental status: Code(s): R41.82 - Altered mental status, unspecified Category: Medical (4) Difficulty concentrating: Code(s): R41.840 - Attention and concentration deficit Category: Medical (5) Chronic pain syndrome: Code(s): G89.4 - Chronic pain syndrome Category: Medical Plan Ongoing?and?worsening?memory?changes?with??brain?fog?. Continues?to?work?with?his?psychiatrist?to?try?different?medications.??Had?tried ?stimulants?but?only?work?at?very?high?doses. MRI?was?negative He?has?a?referral?to?neuropsychiatry?and?I?have?given?him?the?phone?number?today Checking?additional?labs?including?thyroid,?HIV,?syphilis,?CRP,?Lyme Chronic?pain?and?I?had?referred?him?to?pain?man agement.??Insurance?has?said?that?he?is?not?performed?any?physical?therapy?which ?is?untrue.??Insurance?says?that?he?has?not?had?any?imaging?which?is?incorrect.? ?Insurance?and?that?he?has?not?tried?any?medications?which?is?inaccurate. He?says?that?he?is?already?forwarded?necessary?past?medical?records?to?insurance ?and?to?[facility]?to?ensure?they?understand?that?all?of?these?hurdles?have?been?c leared. He?will?only?get?scheduled?with?pain?management?soon. --------- History?of?low?HDL?and?very?high?triglycerides.??He?is?no?longer?taking?medicati ons?in?his?most?recent cholesterol?panel?shows?low? HDL?and?mildly?elevated?triglycerides. Will?recheck?this?again?at?next?blood?draw Orders: Orders Syphilis Screen Today R41.89 - Other symptoms and signs involving cognitive functions and awareness, Z11.3 - Encounter for screening for infections with a predominantly sexual mode of transmission Comprehensive Max. Panel Fast Today R41.89 - Other symptoms and signs involving cognitive functions and awareness, Z00.00 - Encounter for general adult medical examination without abnormal findings CRP High Sensitivity Today R41.89 - Other symptoms and signs involving cognitive functions and awareness Microalbumin, Random (w Creat) Today I10 - Essential (primary) hypertension, R80.9 - Proteinuria, unspecified HIV Ab/Ag Today R41.89 - Other symptoms and signs involving cognitive functions and awareness, Z11.3 - Encounter for screening for infections with a predominantly sexual mode of transmission TSH reflex Free T4 Today R41.89 - Other symptoms and signs involving cognitive functions and awareness, Z00.00 - Encounter for general adult medical examination without abnormal findings Lyme IgG/IgM w/reflex to WB Today R41.89 - Other symptoms and signs involving cognitive functions and awareness Hepatitis B,C Profile Today R41.89 - Other symptoms and signs involving cognitive functions and awareness, Z11.3 - Encounter for screening for infections with a predominantly sexual mode of transmission Erythrocyte Sedimentation Rate Today R41.89 - Other symptoms and signs inv olving cognitive functions and awareness Lipid Panel Today E78.6 - Lipoprotein deficiency, Z00.00 - Encounter for general adult medical examination without abnormal findings UA and rflx microscopic Today R80.9 - Proteinuria, unspecified, Z00.00 - Encounter for general adult medical examination without abnormal findings Medications: Changed From metoprolol succinate ER 25 mg PO DAILY 90 days 90 tabs 3RF To metoprolol succinate ER 50 mg PO DAILY 90 days 90 tabs 3RF
[2024-05-16 13:47] VITALS: BP 127/72; PULSE 81; RESP 13; TEMP 35.5; O2SAT 97; BMI 38.9
== END 2024-05-16 14:27 | disposition home or self-care (01) ==
PROVIDERS: PCP Family Medicine; Visit Provider Family Medicine
DX: R41.89 Other symptoms and signs involving cognitive functions and awareness (principal); R41.3 Other amnesia; R41.82 Altered mental status, unspecified; R41.840 Attention and concentration deficit; G89.4 Chronic pain syndrome

== ENCOUNTER → 2024-05-16 13:39 | Outpatient (BNVA) | payer OTHER, SELFPAY | PROVIDERS: PCP Family Medicine; Visit Provider Family Medicine | DX: R41.89 Other symptoms and signs involving cognitive functions and awareness (principal); R41.3 Other amnesia; R41.82 Altered mental status, unspecified; R41.840 Attention and concentration deficit; G89.4 Chronic pain syndrome | CPT/HCPCS: 99212 ==

== ENCOUNTER 2024-06-20 09:54 | Outpatient (AMB) | payer OTHER, SELFPAY ==
--- NOTE | 2024-06-20 10:05 | A.OFFPC_ITS ---
Vital Signs 06/20/24 10:10 Height 6 ft 4 in Weight 311 lb 8 oz BMI 37.9 BP 102/78 Blood Pressure Location Rt brachial Position Sitting Respiration 16 Pulse 73 Pulse Source Pulse Oximeter Pulse Oximetry (%) 97 Oxygen Delivery Method Room Air Intake Visit Reasons: pt of TG, fell on 06/09 Intake Note: Fell 06/19/24. Went to [facility] ER on 06/20/24 [place] [place] Manager Required: No Allergies No Known Allergies Allergy (Verified 06/20/24 10:06) Tobacco use date assessed: 06/20/24 Dental Screening Dental Screen Date: 07/01/23 HPI HPI Comments History of Present Illness Details The patient is a 44 year old male with a past medical history of low back pain, type 2 diabetes, hypertension, presenting for ER follow up He was evaluated in the ER on Jun 10 for fall that happened Jun 09-he endorses pain in the leg, neck, head upper arms wrist and shoulder. He had vomited once in the the waiting room. Endorsed that he fell as he was walking away from his bathroom. BP was 139/113 in ER. Multiple xrays performed without fracture. Left knee effusion was noted. CT head showed mild to moderate diffuse volume loss with ex vacuo ventricular dilation disproportionate for age He continues to have some headaches. Not following concussion protocol but we discussed today. He continues to have leg pain. He has a referral pending to [facility] pain management for chronic MSK issues. Is on chronic medications. Has done multiple rounds of PT in the past. Apparently there is an insurance issue. He is also waiting to be scheduled by neuropsychiatry ROS see HPI PHYSICAL EXAM: GENERAL: Alert and oriented x 3. NAD EYES: EOMI. Anicteric. HENT: Moist mucous membranes. No scleral icterus. No cervical lymphadenopathy. LUNGS: Clear to auscultation bilaterally. CARDIOVASCULAR: Regular rate and rhythm ABDOMEN: Soft, non-tender +bs EXTREMITIES: No edema. Non-tender. SKIN: No rashes or lesions. Warm. NEUROLOGIC: No focal neurological deficits. CN II-XII grossly intact PSYCHIATRIC: Cooperative. Appropriate mood and affect [facility] Medical History (Updated 06/20/24 @ 11:53 by Susan Spangler MD) Hiatal hernia Low back pain Hx of renal calculi Depression Neuropathy Hyperlipidemia Major depressive disorder, recurrent, unspecified Binge-eating disorder, moderate Screening for prostate cancer Elevated liver enzymes Anxiety Ingrown toenail Left hip pain Seborrheic dermatitis of scalp Back pain with left-sided sciatica Diabetes type 2, uncontrolled Low HDL (under 40) BMI greater than 40 Essential hypertension Annual physical exam Surgical History Status post lumbar microdiscectomy History of esophagogastroduodenoscopy (EGD) Family History Mother Diabetes Kidney problem Carpal tunnel syndrome Chronic knee pain after total replacement of knee joint Depression Father No problems noted. Brother Depression Social History (Updated 06/20/24 @ 10:16 by Gaby Bernal CMA) Housing: Apartment Are you a primary small animal caretaker to a significant other at home: No Do you presently have visiting nurse or other home services: No Alcohol intake: current Alcohol intake frequency: holidays/special occasions only Comment: X-RAY PERFORMED -NO SUTURE IN ABDOMEN Patient Tobacco Use Status: Former Tobacco user Tobacco use type: Cigarette Years Smoked: since 30' e-Cigarette/Vaping Use: Never Used Second Hand Smoke Exposure: No Use of substances other than those prescribed or required for medical reasons: No service: Yes Current occupational status: employed Current occupational exposures/hazards: No Cognitive needs: No Hearing needs: No Vision needs: No Questionnaire Thrive Questionnaire Date Thrive assessed: 11/10/21 RUDY-7 AMB Questionnaire RUDY-7 Date RUDY - 7 assessed: 05/20/23 Source: Developed by Drs. Iglesia Aguilera, Hayde Noonan, Sree Ornelas and colleagues, with an educational jenny from [email or web address]. Physical exam (Primary Care) Vital Signs: Last Vital Signs Pulse 73 06/20/24 10:10 Resp 16 06/20/24 10:10 BP 102/78 06/20/24 10:10 Pulse Ox 97 06/20/24 10:10 Oxygen Delivery Method Room Air 06/20/24 10:10 BMI result Body Mass Index 37.9 Tobacco/Smoking Status: Tobacco use Status Tobacco use date assessed 06/20/24 06/20/24 10:13 Patient Tobacco Use Status Former Tobacco user 06/20/24 10:16 Tobacco use type Cigarette 06/20/24 10:16 e-Cigarette/Vaping Use Never Used 06/20/24 10:16 Thrive Assessment: Date of Thrive Assessment Date Thrive assessed 11/10/21 06/20/24 10:13 Coding Level of Care Code Est Pt Level 4 (83619) Diagnoses Fall, subsequent encounter W19.XXXD Encounter type: subsequent encounter Assessment & Plan Assessment & Plan (1) Fall: Code(s): W19.XXXA - Unspecified fall, initial encounter Category: Medical Qualifiers: Encounter type: subsequent encounter Qualified Code(s): W19.XXXD - Unspecified fall, subsequent encounter Plan: ER course reviewed Imaging without acute fracture Referral to pain management pending Referral to neuropsych pending Brain rest
[2024-06-20 10:10] VITALS: BP 102/78; PULSE 73; RESP 16; O2SAT 97; BMI 37.9
== END 2024-06-20 15:05 | disposition home or self-care (01) ==
PROVIDERS: PCP Family Medicine; Visit Provider Internal Medicine
DX: R51.9 Headache, unspecified (principal); W19.XXXD Unspecified fall, subsequent encounter

== ENCOUNTER → 2024-06-20 09:54 | Outpatient (BNVA) | payer OTHER, SELFPAY | PROVIDERS: PCP Family Medicine; Visit Provider Internal Medicine | DX: M54.50 Low back pain, unspecified (principal); E11.9 Type 2 diabetes mellitus without complications; I10 Essential (primary) hypertension; Z91.81 History of falling | CPT/HCPCS: 99212 ==

== ENCOUNTER 2024-06-28 08:12 | Outpatient (REF) | payer OTHER, SELFPAY ==
[2024-06-28 11:35] LABS: Appearance Urine Clear; Color Urine Yellow; Glucose Urine UA Negative (Negative); Leukocyte Esterase Urine Negative (Negative); Nitrite Urine Negative (Negative); PH 5.5 (5.0-9.0); Urine Blood Negative (Negative); Urine Ketones Trace mg/dL (Negative); Urine Protein Negative (Neg-Trace)
[2024-06-28 12:18] LABS: Creatinine Urine 199.35 mg/dL
[2024-06-28 12:42] LABS: Erythrocyte Sedimentation Rate 6 MM/HR (0-15)
[2024-06-28 12:56] LABS: HBS Num1 0.78 mIU/mL (0-7.99); HBc Num1 0.08 S/CO (0.00-0.79); HBsAGNum1 0.33 S/CO (0.00-0.99); HIV AB/AG Nonreactive (Nonreactive); HIV Num 1 0.06 S/CO (0.00-0.99); Hepatitis B Core Antibody Nonreactive (Nonreactive); Hepatitis B Surface Antigen Negative (Negative); ~HepC Num1 0.15 S/CO (0.00-0.79); ~Hepatitis B Surface Antibody NONREACTIVE (Nonreactive); ~Hepatitis C Antibody Nonreactive (Nonreactive)
[2024-06-28 12:57] LABS: Syphilis Screen Nonreactive (Nonreactive)
[2024-06-28 12:58] LABS: Alanine Aminotransferase 40 U/L (0-40); Albumin Level 4.3 g/dL (3.5-5.0); Alkaline Phosphatase 46 U/L (39-117); Anion Gap 11 (12-20); Aspartate Amino Transferase 33 U/L (5-37); Bilirubin Total 0.9 mg/dL (0.0-1.0); Blood Urea Nitrogen 11 mg/dL (9-16); Calcium 9.4 mg/dL (8.4-10.2); Carbon Dioxide 27 mmol/L (22-29); Chloride 107 mmol/L (96-108); Cholesterol 189 mg/dL (<200); Estimated Glomerular Filt Rate > 60; Glucose Fasting 126 mg/dL (60-99); HDL Cholesterol 32 mg/dL (>40); LDL Cholesterol Calculated 117 mg/dL (<100); Potassium 3.7 mmol/L (3.3-5.1); Sodium 141 mmol/L (135-145); TSH reflex Free T4 2.66 uIU/mL (0.32-4.0); Total Protein 7.6 g/dL (6.5-8.0); Triglycerides 203 mg/dL (<150)
[2024-06-29 06:44] LABS: CRP High Sensitivity 0.6 mg/L
[2024-06-29 08:48] LABS: Lyme Abs Screen <0.90 index
== END 2024-06-28 08:13 | disposition home or self-care (01) ==
LOC: HO.WFDLDS 08:12
PROVIDERS: Visit Provider Family Medicine
DX: Z00.00 Encounter for general adult medical examination without abnormal findings (principal); E78.6 Lipoprotein deficiency; R80.9 Proteinuria, unspecified; I10 Essential (primary) hypertension; R41.89 Other symptoms and signs involving cognitive functions and awareness; Z11.3 Encounter for screening for infections with a predominantly sexual mode of transmission
CPT/HCPCS: 36415; 80053; 80061; 81003; 82043; 82570; 84443; 85652; 86141; 86617; 86618; 86704; 86706; 86780; 86803; 87340; 87389

== ENCOUNTER 2024-07-19 14:16 | Outpatient (AMB) | payer OTHER, SELFPAY ==
--- NOTE | 2024-07-19 14:26 | A.OFFPC_ITS ---
Vital Signs 07/19/24 14:32 Height 6 ft 4 in Weight 308 lb 8 oz BMI 37.5 BP 120/76 Blood Pressure Location Rt brachial Position Sitting Respiration 16 Pulse 112 H Pulse Source Pulse Oximeter Temp 98.9 F Temp Source Oral Pulse Oximetry (%) 97 Oxygen Delivery Method Room Air Intake Visit Reasons: memory?changes,?chronic?pain,?cholesterol Intake Note: patient is scheduled for memory changes and chronic pain Radon Inspector Required: No Allergies No Known Allergies Allergy (Verified 07/19/24 14:31) Tobacco use date assessed: 06/20/24 Dental Screening Dental Screen Date: 07/01/23 HPI memory?changes,?chronic?pain,?cholesterol HPI Details 44 y/o male presents to f/u brain fog/me franchesca changes, chronic pain, cholesterol levels. Labs drawn 06/28/24. Reviewed labs with pt. Elevated fasting glucose of 126. Liver enzymes improved - AST 33, ALT 40. Triglycerides 203. TC 189. LDL 117. HDL low at 32. Recent MRI brain unremarkable. Ongoing brain fog/memory changes. He has not heard back from neuropsych yet. He reports recent fall. CT scan had been reassuring according to ED note. [facility] Medical History (Updated 07/19/24 @ 15:28 by Ashu Yu) Hiatal hernia Low back pain Hx of renal calculi Depression Neuropathy Hyperlipidemia Major depressive disorder, recurrent, unspecified Binge-eating disorder, moderate Screening for prostate cancer Elevated liver enzymes Anxiety Ingrown toenail Left hip pain Seborrheic dermatitis of scalp Back pain with left-sided sciatica Diabetes type 2, uncontrolled Low HDL (under 40) BMI greater than 40 Essential hypertension Annual physical exam Surgical History Status post lumbar microdiscectomy History of esophagogastroduodenoscopy (EGD) Family History Mother Diabetes Kidney problem Carpal tunnel syndrome Chronic knee pain after total replacement of knee joint Depression Father No problems noted. Brother Depression Social History (Updated 06/20/24 @ 10:16 by Gaby Bernal CMA) Housing: Apartment Are you a primary customer care associate to a significant other at home: No Do you presently have visiting nurse or other home services: No Alcohol intake: current Alcohol intake frequency: holidays/special occasions only Comment: X-RAY PERFORMED -NO SUTURE IN ABDOMEN Patient Tobacco Use Status: Former Tobacco user Tobacco use type: Cigarette Years Smoked: since 30' e-Cigarette/Vaping Use: Never Used Second Hand Smoke Exposure: No service: Yes Current occupational status: employed Current occupational exposures/hazards: No Cognitive needs: No Hearing needs: No Vision needs: No Questionnaire Thrive Questionnaire Date Thrive assessed: 11/10/21 RUDY-7 AMB Questionnaire RUDY-7 Date RUDY - 7 assessed: 05/20/23 Source: Developed by Drs. Iglesia Aguilera, Hayde Noonan, Sree Ornelas and colleagues, with an educational jenny from [employer]. Review of Systems Const Denies chills, Denies fatigue, Denies fever(s), Denies headache(s) and Denies weakness ENT Denies dizziness and Denies headache(s) Card Denies dyspnea Resp Denies cough, Denies dyspnea, Denies wheezing and Denies other (shortness of breath) Musc Denies numbness and Denies tingling Neuro Denies dizziness, Denies headache(s), Denies numbness, Denies tingling and Denies weakness Psych Denies anxiety and Denies depression Endo Denies fatigue Aller/Immun Denies wheezing Physical exam (Primary Care) Vital Signs: Last Vital Signs Temp 98.9 F 07/19/24 14:32 Pulse 112 H 07/19/24 14:32 Resp 16 07/19/24 14:32 BP 120/76 07/19/24 14:32 Pulse Ox 97 07/19/24 14:32 Oxygen Delivery Method Room Air 07/19/24 14:32 BMI result Body Mass Index 37.5 Tobacco/Smoking Status: Tobacco use Status Tobacco use date assessed 06/20/24 07/19/24 14:28 Patient Tobacco Use Status Former Tobacco user 07/19/24 14:28 Tobacco use type Cigarette 07/19/24 14:28 e-Cigarette/Vaping Use Never Used 07/19/24 14:28 Thrive Assessment: Date of Thrive Assessment Date Thrive assessed 11/10/21 07/19/24 14:28 Const General: well developed; No acute distress Nutritional Appearance: well nourished Orientation/consciousness: patient oriented x3 HENMT Head: Yes normocephalic and Yes atraumatic Eyes General: appearance normal, both eyes and all related structures Pupils: Equal, round and reactive pupils present EOM: EOMs intact bilaterally Resp Effort & Inspection: normal respiratory effort Neuro General: patient oriented x3 and gait normal Cranial nerves: Yes Equal, round and reactive pupils present Psych Affect: normal affect Coding Level of Care Code Est Pt Level 4 (35854) Diagnoses Memory changes R41.3 Altered mental status R41.82 Fall, subsequent encounter W19.XXXD Encounter type: subsequent encounter Diabetes type 2, controlled E11.9 Chronic pain syndrome G89.4 Assessment & Plan Assessment & Plan (1) Memory changes: Code(s): R41.3 - Other amnesia Category: Medical Plan: Ongoing?memory?changes,?mental?status?changes?and?brain?fog. Has?tried?numerous?medications?including?SSRIs,?bupropion,?stimulants. Had?referred?him?to?neuropsychiatry.??He?has?not?received?an?appointment. Will?refer?him?to?[facility]?outpatient?psychiatric?consult?team?to?review?his?medicati ons?and?evaluate. (2) Altered mental status: Code(s): R41.82 - Altered mental status, unspecified Category: Medical Plan: As above (3) Fall: Code(s): W19.XXXA - Unspecified fall, initial encounter Category: Medical Qualifiers: Encounter type: subsequent encounter Qualified Code(s): W19.XXXD - Unspecified fall, subsequent encounter Plan: Recent?fall CT?scan?was?reassuring?according?to?ED?note. I?do?not?have?the?CT?report?is?self?from?[facility].??Will?request?his (4) Diabetes type 2, controlled: Code(s): E11.9 - Type 2 diabetes mellitus without complications Category: Medical Plan: History?of?diabetes. Will?recheck?labs?with?his?next?blood?draw (5) Chronic pain syndrome: Code(s): G89.4 - Chronic pain syndrome Category: Medical Plan: Followed?by?[facility]?pain?management Requesting?recent?notes Follow-up?with?pain?management?as?recommended Continue?medications?including?gabapentin Orders: Orders Comprehensive [place]. Panel Fast Today R41.82 - Altered mental status, unspecified, Z00.00 - Encounter for general adult medical examination without abnormal findings Hemoglobin A1c Today R41.82 - Altered mental status, unspecified, R73.01 - Impaired fasting glucose Referrals Psychiatry Outpatient Consultation Service R41.3 - Other amnesia, R41.82 - Altered mental status, unspecified, R41.840 - Attention and concentration defici t, R41.89 - Other symptoms and signs involving cognitive functions and awareness
[2024-07-19 14:32] VITALS: BP 120/76; PULSE 112; RESP 16; TEMP 37.2; O2SAT 97; BMI 37.5
== END 2024-07-19 15:41 | disposition home or self-care (01) ==
LOC: HO.HMCFM 14:17
PROVIDERS: PCP Family Medicine; Visit Provider Family Medicine
DX: R41.3 Other amnesia (principal); R41.82 Altered mental status, unspecified; W19.XXXD Unspecified fall, subsequent encounter; E11.9 Type 2 diabetes mellitus without complications; G89.4 Chronic pain syndrome

== ENCOUNTER → 2024-07-19 14:16 | Outpatient (BNVA) | payer OTHER, SELFPAY | PROVIDERS: PCP Family Medicine; Visit Provider Family Medicine | DX: R41.3 Other amnesia (principal); R41.82 Altered mental status, unspecified; E11.9 Type 2 diabetes mellitus without complications; G89.4 Chronic pain syndrome; Z91.81 History of falling | CPT/HCPCS: 99212 ==

== ENCOUNTER 2024-09-22 13:40 | Outpatient (REF) | payer OTHER, SELFPAY | END 2024-09-22 13:41 | disposition home or self-care (01) | LOC: HO.WFDLDS 13:40 | PROVIDERS: Visit Provider Family Medicine | DX: Z00.00 Encounter for general adult medical examination without abnormal findings (principal) | CPT/HCPCS: 36415 ==

== ENCOUNTER 2024-09-27 10:43 | Outpatient (AMB) | payer OTHER, SELFPAY ==
--- NOTE | 2024-09-27 11:33 | A.OFFPC_ITS ---
Vital Signs 09/27/24 11:46 Height 6 ft 4 in Weight 315 lb BMI 38.3 BP 130/80 Blood Pressure Location Lt brachial Position Sitting Respiration 14 Pulse 84 Pulse Source Pulse Oximeter Temp 98.8 F Temp Source Oral Pulse Oximetry (%) 96 Oxygen Delivery Method Room Air Intake Visit Reasons: f/u chronic conditions Intake Note: 2?month?follow- up?chronic?pain,?mental?status?changes/brain?fog?and?chronic?conditions. Also?checking?A1c - history?of?diabetes Allergies No Known Allergies Allergy (Verified 09/27/24 11:45) Medication List - Last Reconciled 09/27/24 by Patrick Mullen MD amitriptyline 100 mg PO BEDTIME 30 days bupropion HCl XL 300 mg PO QAM 30 days gabapentin 600 mg PO TID 90 days meloxicam 15 mg PO DAILY 30 days metoprolol succinate ER 50 mg PO DAILY 90 days quetiapine 50 mg PO BEDTIME 90 days tizanidine 4 mg PO Q8H PRN 30 days Tobacco use date assessed: 06/20/24 Dental Screening Dental Screen Date: 07/01/23 HPI f/u chronic conditions HPI Details Patient presents to follow-up blood pressure and diabetes and chronic conditions He is taking his medications as prescribed A1c today is 6.5% Ongoing back pain is now followed by pain management. Have not received note from pain management at [facility] Had referred patient to neuropsychiatry numerous times and patient still has not been scheduled Liver enzymes had been elevated. More recently they have returned to normal range [facility] Medical History (Updated 07/19/24 @ 15:28 by Ashu Yu) Hiatal hernia Low back pain Hx of renal calculi Depression Neuropathy Hyperlipidemia Major depressive disorder, recurrent, unspecified Binge-eating disorder, moderate Screening for prostate cancer Elevated liver enzymes Anxiety Ingrown toenail Left hip pain Seborrheic dermatitis of scalp Back pain with left-sided sciatica Diabetes type 2, uncontrolled Low HDL (under 40) BMI greater than 40 Essential hypertension Annual physical exam Surgical History Status post lumbar microdiscectomy History of esophagogastroduodenoscopy (EGD) Family History Mother Diabetes Kidney problem Carpal tunnel syndrome Chronic knee pain after total replacement of knee joint Depression Father No problems noted. Brother Depression Social History (Updated 06/20/24 @ 10:16 by Gaby Bernal CMA) Housing: Apartment Are you a primary child care supervisor to a significant other at home: No Do you presently have visiting nurse or other home services: No Alcohol intake: current Alcohol intake frequency: holidays/special occasions only Comment: X-RAY PERFORMED -NO SUTURE IN ABDOMEN Patient Tobacco Use Status: Former Tobacco user Tobacco use type: Cigarette Years Smoked: since ' e-Cigarette/Vaping Use: Never Used Second Hand Smoke Exposure: No service: Yes Current occupational status: employed Current occupational exposures/hazards: No Cognitive needs: No Hearing needs: No Vision needs: No Questionnaire Thrive Questionnaire Date Thrive assessed: 11/10/21 RUDY-7 AMB Questionnaire RUDY-7 Date RUDY - 7 assessed: 05/20/23 Source: Developed by Drs. Iglesia Aguilera, Hayde Noonan, Sree Ornelas and colleagues, with an educational jenny from [employer]. Review of Systems Const Denies chills, Denies fatigue, Denies fever(s), Denies headache(s) and Denies weakness ENT Denies dizziness and Denies headache(s) Card Denies chest pain, Denies lightheadedness, Denies dyspnea and Denies other (Palpitations) Resp Denies cough, Denies dyspnea, Denies wheezing and Denies other ( shortness of breath) Musc Details: Back?pain Denies numbness and Denies tingling Neuro Denies dizziness, Denies headache(s), Denies numbness, Denies tingling, Denies paresthesias and Denies weakness Psych Denies anxiety and Denies depression Endo Denies fatigue Aller/Immun Denies wheezing Physical exam (Primary Care) Vital Signs: Last Vital Signs Temp 98.8 F 09/27/24 11:46 Pulse 84 09/27/24 11:46 Resp 14 09/27/24 11:46 BP 130/80 09/27/24 11:46 Pulse Ox 96 09/27/24 11:46 Oxygen Delivery Method Room Air 09/27/24 11:46 BMI result Body Mass Index 38.3 Tobacco/Smoking Status: Tobacco use Status Tobacco use date assessed 06/20/24 09/27/24 11:33 Patient Tobacco Use Status Former Tobacco user 09/27/24 11:33 Tobacco use type Cigarette 09/27/24 11:33 e-Cigarette/Vaping Use Never Used 09/27/24 11:33 Thrive Assessment: Date of Thrive Assessment Date Thrive assessed 11/10/21 09/27/24 11:33 Const General: no acute distress and well developed Nutritional Appearance: well nourished Orientation/consciousness: patient oriented x3 HENMT Head: Yes normocephalic and Yes atraumatic Eyes General: appearance normal, both eyes and all related structures Pupils: Equal, round and reactive pupils present EOM: EOMs intact bilaterally Resp Effort & Inspection: normal respiratory effort Auscultation: clear to auscultation bilaterally Cardio Rate: regular rate Rhythm: regular rhythm Heart sounds: S1 normal heart sound present, S2 normal heart sound present, no gallops, no murmurs and no rubs Neuro Other: Walks?with?cane.??Cautious?gait. General: patient oriented x3 Cranial nerves: Yes Equal, round and reactive pupils present Psych Affect: normal affect Coding Level of Care Code Est Pt Level 4 (22252) Diagnoses Essential hypertension I10 Diabetes type 2, controlled E11.9 Back pain M54.9 Memory changes R41.3 Assessment & Plan Assessment & Plan (1) Essential hypertension: Code(s): I10 - Essential (primary) hypertension Category: Medical Plan: Blood?pressure?is?controlled.??Goal?is?less?than?140/90 Continue?current?medications (2) Diabetes type 2, controlled: Code(s): E11.9 - Type 2 diabetes mellitus without complications Category: Medical Plan: A1c?is?6.5%.??Good?control.??Goal?is?less?than?7% Continue?her?medications?and?I?encouraged?a?diabetic?diet (3) Back pain: Code(s): M54.9 - Dorsalgia, unspecified Category: Medical Plan: Ongoing?back?pain Followed?by?[facility]?a? management.??I?have?not?received?any?notes?from?them?and?will?request?these Follow-up?with?pain?management?as?recommended Chronic?pain Had?referred?him?to?pain?management - He?has?seen?pain?management?and?they?have?started?physical?therapy They?have?planned?injection?therapy?would?insurance?has?been?requiring prerequisite?which?patient?has?already?done. (4) Memory changes: Code(s): R41.3 - Other amnesia Category: Medical Plan Elevated?liver?enzymes Now?back?in?normal?range.??Rechecking?these Orders: Orders Comprehensive Met. Panel Today R41.3 - Other amnesia Medications: New gabapentin 600 mg PO TID 90 days 270 tabs 2RF Discontinued gabapentin Discontinued Reason: Doctor's Order 400 mg PO TID 90 days 270 caps 2RF M47.816 - Spondylosis without myelopathy or radiculopathy, lumbar region
[2024-09-27 11:46] VITALS: BP 130/80; PULSE 84; RESP 14; TEMP 37.1; O2SAT 96; BMI 38.3
== END 2024-09-27 12:23 | disposition home or self-care (01) ==
LOC: HO.HMCFM 10:43
PROVIDERS: PCP Family Medicine; Visit Provider Family Medicine
DX: I10 Essential (primary) hypertension (principal); E11.9 Type 2 diabetes mellitus without complications; M54.9 Dorsalgia, unspecified; R41.3 Other amnesia

== ENCOUNTER → 2024-09-27 10:43 | Outpatient (BNVA) | payer OTHER, SELFPAY | PROVIDERS: PCP Family Medicine; Visit Provider Family Medicine | DX: E11.9 Type 2 diabetes mellitus without complications (principal); I10 Essential (primary) hypertension; R41.3 Other amnesia; M47.816 Spondylosis without myelopathy or radiculopathy, lumbar region | CPT/HCPCS: 36415; 80048; 80053; 99212 ==

== ENCOUNTER 2024-09-27 12:24 | Outpatient (REF) | payer OTHER, SELFPAY ==
[2024-09-27 15:43] LABS: Alanine Aminotransferase 52 U/L (0-40); Albumin Level 4.5 g/dL (3.5-5.0); Alkaline Phosphatase 38 U/L (39-117); Anion Gap 12 (12-20); Aspartate Amino Transferase 40 U/L (5-37); Bilirubin Total 0.8 mg/dL (0.0-1.0); Blood Urea Nitrogen 14 mg/dL (9-16); Calcium 9.7 mg/dL (8.4-10.2); Carbon Dioxide 30 mmol/L (22-29); Chloride 104 mmol/L (96-108); Estimated Glomerular Filt Rate > 60; Glucose Fasting 115 mg/dL (60-99); Glucose Random 115 mg/dL (60-115); Potassium 4.2 mmol/L (3.3-5.1); Sodium 142 mmol/L (135-145); Total Protein 7.4 g/dL (6.5-8.0)
== END 2024-09-27 12:25 | disposition home or self-care (01) ==
LOC: HO.WFDLDS 12:24
PROVIDERS: Visit Provider Family Medicine
DX: Z13.89 Encounter for screening for other disorder (principal)
CPT/HCPCS: 36415; 80048; 80053

== ENCOUNTER 2024-11-02 09:35 | Outpatient (AMB) | payer OTHER, SELFPAY ==
--- NOTE | 2024-11-02 09:51 | MHC.PC.OV ---
Vital Signs 11/02/24 10:02 Height 6 ft 4 in Weight 313 lb 2 oz BMI 38.1 BP 100/62 Blood Pressure Location Lt brachial Position Sitting Respiration 14 Pulse 84 Pulse Source Pulse Oximeter Temp 98.7 F Temp Source Oral Pulse Oximetry (%) 97 Oxygen Delivery Method Room Air Intake Visit Reasons: fu chronic conditions- A1C needed Intake Note: patient is scheduled for chronic conditions Community Service Worker Required: No Allergies No Known Allergies Allergy (Verified 11/02/24 10:01) Medication List - Last Reconciled 11/02/24 by Patrick Mullen MD amitriptyline 100 mg PO BEDTIME 30 days bupropion HCl XL 300 mg PO QAM 30 days gabapentin 600 mg PO TID 90 days meloxicam 15 mg PO DAILY 30 days metoprolol succinate ER 50 mg PO DAILY 90 days quetiapine 50 mg PO BEDTIME 90 days tizanidine 4 mg PO Q8H PRN 30 days Tobacco use date assessed: 06/20/24 Dental Screening Dental Screen Date: 07/01/23 HPI fu chronic conditions- A1C needed HPI Details 44 y/o male presents to f/u chronic conditions. A1c today 11/02/24 6.5%. Diet controlled. Labs drawn 09/27/24. Reviewed labs with pt. Fasting glucose 115. Ongoing elevated liver enzymes - AST 40, ALT 52. Blood pressure today 100/62, 84p. Ongoing brain fog but pt notes they have been working on trying to get him an appt. with neuropsych. He notes he feels bupropion has not been helping much. Complaints of a rash on his arm. [facility] Medical History (Updated 07/19/24 @ 15:28 by Ashu Yu) Hiatal hernia Low back pain Hx of renal calculi Depression Neuropathy Hyperlipidemia Major depressive disorder, recurrent, unspecified Binge-eating disorder, moderate Screening for prostate cancer Elevated liver enzymes Anxiety Ingrown toenail Left hip pain Seborrheic dermatitis of scalp Back pain with left-sided sciatica Diabetes type 2, uncontrolled Low HDL (under 40) BMI greater than 40 Essential hypertension Annual physical exam Surgical History Status post lumbar microdiscectomy History of esophagogastroduodenoscopy (EGD) Family History Mother Diabetes Kidney problem Carpal tunnel syndrome Chronic knee pain after total replacement of knee joint Depression Father No problems noted. Brother Depression Social History (Updated 06/20/24 @ 10:16 by Gaby Bernal [facility]) Housing: Apartment Are you a primary lawn caretaker to a significant other at home: No Do you presently have visiting nurse or other home services: No Alcohol intake: current Alcohol intake frequency: holidays/special occasions only Comment: X-RAY PERFORMED -NO SUTURE IN ABDOMEN Patient Tobacco Use Status: Former Tobacco user Tobacco use type: Cigarette Years Smoked: since e-Cigarette/Vaping Use: Never Used Second Hand Smoke Exposure: No service: Yes Current occupational status: employed Current occupational exposures/hazards: No Cognitive needs: No Hearing needs: No Vision needs: No Questionnaire Thrive Questionnaire Date Thrive assessed: 11/10/21 RUDY-7 AMB Questionnaire RUDY-7 Date RUDY - 7 assessed: 05/20/23 Source: Developed by Drs. Iglesia Aguilera, Hayde Noonan, Sree Ornelas and colleagues, with an educational jenny from [employer]. Review of Systems Const Denies chills, Denies fatigue, Denies fever(s), Denies headache(s) and Denies weakness ENT Denies dizziness and Denies headache(s) Card Denies dyspnea Resp Denies cough, Denies dyspnea, Denies wheezing and Denies other (shortness of breath) Musc Denies numbness and Denies tingling Skin/Breast Reports rash Neuro Denies dizziness, Denies headache(s), Denies numbness, Denies tingling and Denies weakness Psych Denies anxiety and Denies depression Endo Denies fatigue Aller/Immun Denies wheezing Physical exam (Primary Care) Vital Signs: Last Vital Signs Temp 98.7 F 11/02/24 10:02 Pulse 84 11/02/24 10:02 Resp 14 11/02/24 10:02 BP 100/62 11/02/24 10:02 Pulse Ox 97 11/02/24 10:02 Oxygen Delivery Method Room Air 11/02/24 10:02 BMI result Body Mass Index 38.1 Tobacco/Smoking Status: Tobacco use Status Tobacco use date assessed 06/20/24 11/02/24 09:51 Patient Tobacco Use Status Former Tobacco user 11/02/24 09:51 Tobacco use type Cigarette 11/02/24 09:51 e-Cigarette/Vaping Use Never Used 11/02/24 09:51 Thrive Assessment: Date of Thrive Assessment Date Thrive assessed 11/10/21 11/02/24 09:51 Const General: well developed; No acute distress Nutritional Appearance: well nourished Orientation/consciousness: patient oriented x3 HENMT Head: Yes normocephalic and Yes atraumatic Eyes General: appearance normal, both eyes and all related structures Pupils: Equal, round and reactive pupils present EOM: EOMs intact bilaterally Resp Effort & Inspection: normal respiratory effort Neuro General: patient oriented x3 and gait normal Cranial nerves: Yes Equal, round and reactive pupils present Psych Affect: normal affect Coding Level of Care Code Est Pt Level 4 (90149) Diagnoses Diabetes type 2, controlled E11.9 Essential hypertension I10 Brain fog R41.89 Chronic pain syndrome G89.4 Rash R21 Assessment & Plan Assessment & Plan (1) Diabetes type 2, controlled: Code(s): E11.9 - Type 2 diabetes mellitus without complications Category: Medical Plan: Diet-controlled diabetes with A1c 6.5%. Good control. Goal is less than 7% Continue diet control and weight loss (2) Essential hypertension: Code(s): I10 - Essential (primary) hypertension Category: Medical Plan: Blood pressure is well controlled. Goal is less than 140/90 Continue medication (3) Brain fog: Code(s): R41.89 - Other symptoms and signs involving cognitive functions and awareness Category: Medical Plan: Ongoing brain fog. Patient has now been contacted by neuropsychiatry. They told him they would call him to set up an appointment in the next several months. Does not have an appointment yet. Advised him to continue following up with them until they get him scheduled. (4) Chronic pain syndrome: Code(s): G89.4 - Chronic pain syndrome Category: Medical Plan: Patient has seen pain management. I do not have the notes today. Requesting these. Patient says they made plans but insurance has declined pain management plan until he has physical therapy. Patient had already undergone physical therapy and medication management but he says insurance was requiring him to do physical therapy again so he is doing this. He has appointment to follow-up with pain management (5) Rash: Code(s): R21 - Rash and other nonspecific skin eruption Category: Medical Plan: Rash at left arm He says it improves with ketoconazole shampoo that he uses on his scalp. Will give him a script for a combo cream Orders: Orders AMB Hemoglobin A1c Today E11.9 - Type 2 diabetes mellitus without complications Medications: New clotrimazole-betamethasone 1-0.05 % 1 appl topical BID 45 grams 0RF 2 weeks
[2024-11-02 10:02] VITALS: BP 100/62; PULSE 84; RESP 14; TEMP 37.1; O2SAT 97; BMI 38.1
== END 2024-11-02 10:29 | disposition home or self-care (01) ==
LOC: HO.HMCFM 09:35
PROVIDERS: PCP Family Medicine; Visit Provider Family Medicine
DX: E11.9 Type 2 diabetes mellitus without complications (principal); I10 Essential (primary) hypertension; R41.89 Other symptoms and signs involving cognitive functions and awareness; G89.4 Chronic pain syndrome; R21 Rash and other nonspecific skin eruption

== ENCOUNTER → 2024-11-02 09:35 | Outpatient (BNVA) | payer OTHER, SELFPAY | PROVIDERS: PCP Family Medicine; Visit Provider Family Medicine | DX: E11.9 Type 2 diabetes mellitus without complications (principal); I10 Essential (primary) hypertension; R41.89 Other symptoms and signs involving cognitive functions and awareness; G89.4 Chronic pain syndrome; R21 Rash and other nonspecific skin eruption | CPT/HCPCS: 83036; 99212 ==

== ENCOUNTER 2025-02-05 10:37 | Outpatient (AMB) | payer OTHER, SELFPAY ==
--- OUTSIDE RECORDS SUMMARY | 2025-02-05 10:40 | XMS_ITS | Clinical Summary ---
Author Organization [facility] Address [address] [place] [phone] Phone Care Team Providers Care Fire Alarm Mechanic Name Role Phone Pcp, Unknown Primary Care Provider Unavailabl e Allergies No known active allergies Medications cyclobenzaprine (FLEXERIL) 10 MG tablet Take 10 mg by mouth daily. Active naproxen (NAPROSYN) 500 MG tablet Take 500 mg by mouth 2 (two) times a day with meals. Active magnesium oxide 400 mg magnesium Tab Take 400 mg by mouth daily as needed. Active Social History Tobacco Use Types Packs/Day Years Used Date Smoking Tobacco: Some Days Cigars Started: 11/05/1987 Smokeless Tobacco: Former Chew Quit: 09/04/1997 Comments:3 or 4 cigars a yea r Alcohol Use Standard Drinks/Week Comments Yes 6 (1 standard drink = 0.6 oz pur e alcohol) social drinker Education Answer Date Recorded Are you interested in more education? Not on cici e 08/21/2022 Are you concerned about learning? Not on file 08/21/2022 No 08/21/2022 No 08/21/2022 Digital Access Answer Date Recorded No 09/19/2022 No 09/19/2022 No 09/19/2022 Reliable internet access at home? Not on file 09/19/2022 Device with a working camera? Not on file Sex and Gender Information Value Date Recorded Sex Assigned at Not on file Legal Sex Male 1:56 PM EDT Gender Identity Not on file Sexual Orientation Not on file Plan of Treatment Health Maintenance Due Date Last Done Comments Adult Td,Tdap Booster 1978 LIPID PANEL 1978 DEPRESSION SCREENING 1990 SMOKING Hx and SMOKELESS TOBACCO SCREENING 1991 HEPATITIS C SCREENING 1996 HIV ONE-TIME SCREENING (18-6 5 YEARS) 1996 PNEUMOCOCCAL VACCINES (0-49 years) (1 of 2 - PCV) 1997 COLOGUARD 2023 COLONOSCOPY 2023 COLORECTAL CANCER SCREENING 2023 FIT TEST 2023 FOBT 2023 SIGMOIDOSCOPY 2023 VIRTUAL COLONOSCOPY 2023 INFLUENZA VACCINE (#1) 2024 , 02/01/2018 COVID-19 VACCINE (3 - 2024-2 6 season) 2024 10/18/2020, 09/27/2020 HEPATITIS A VACCINES Aged Out No long er eligible based on patient's age to complete this topic HIB VACCINES Aged Out No longer eligi ble based on patient's age to complete this topic MENINGOCOCCAL VACCINES (ACWY) Aged Out No longer eligible based on patient's age to complete this topic MENINGOCOCCAL VACCINES (B) Aged Out N o longer eligible based on patient's age to complete this topic Medical Devices Not on file Insurance [employer] Care Teams Fire Alarm Mechanic Relationship Specialty Start Date End Date Pcp, Unknown PCP - General 08/30/19 Additional Source Comments The information contained in this document represents components of the legal health record. It is not the complete legal health record.[facility]
--- NOTE | 2025-02-05 10:41 | A.OFFPC_ITS ---
Vital Signs 02/05/25 10:45 Height 6 ft 4 in Weight 324 lb 3 oz BMI 39.5 BP 120/78 Blood Pressure Location Lt brachial Position Sitting Respiration 15 Pulse 80 Pulse Source Pulse Oximeter Temp 97.4 F Temp Source Temporal Artery Scan Pulse Oximetry (%) 95 Oxygen Delivery Method Room Air Intake Visit Reasons: f/u diabetes Intake Note: Gary presents in the office today for a follow up to diabetes. Allergies No Known Allergies Allergy (Verified 02/05/25 10:44) Medication List - Last Reconciled 02/05/25 by Patrick Mullen MD amitriptyline 100 mg PO BEDTIME bupropion HCl XL 300 mg PO QAM 30 days clotrimazole-betamethasone 1-0.05 % 1 appl topical BID 2 weeks gabapentin 600 mg PO TID 90 days meloxicam 15 mg PO DAILY metoprolol succinate ER 50 mg PO DAILY 90 days quetiapine 50 mg PO BEDTIME 90 days tizanidine 4 mg PO Q8H PRN 30 days Tobacco use date assessed: 02/05/25 Dental Screening Dental Screen Date: 02/05/25 Did you have a dental visit in the last 12 months?: No Did you have a dental problem in the last 6 months where you did not have access to dental care?: No Was dental information given to patient?: Patient declined HPI f/u diabetes HPI Details 44 y/o male presents to f/u diabetes. A1c today 02/05/25 7.0%. Weight has increased since last office visit in October - 313 lbs to 324 lbs. Had went to the emergency department a few weeks ago for hematuria. They did not see any kidney stones - was started on oral antibiotics. Pt notes symptoms have improved but still notes some discomfort and cloudiness to his urine. HPI Comments History of Present Illness Details Documentation assistance for Patrick Mullen MD, was provided by Ashu Yu,? Director Law Enforcement on 02/05/2025 at 11:40 AM JEFERSON. Leonidas, Dr. Mullen, have read, observed, and verified documentation. ?? [facility] Medical History (Updated 02/05/25 @ 11:38 by Ashu Yu) Hiatal hernia Low back pain Hx of renal calculi Depression Neuropathy Hyperlipidemia Major depressive disorder, recurrent, unspecified Binge-eating disorder, moderate Screening for prostate cancer Elevated liver enzymes Anxiety Ingrown toenail Left hip pain Seborrheic dermatitis of scalp Back pain with left-sided sciatica Diabetes type 2, uncontrolled Low HDL (under 40) BMI greater than 40 Essential hypertension Annual physical exam Surgical History Status post lumbar microdiscectomy History of esophagogastroduodenoscopy (EGD) Family History Mother Diabetes Kidney problem Carpal tunnel syndrome Chronic knee pain after total replacement of knee joint Depression Father No problems noted. Brother Depression Social History (Updated 02/05/25 @ 10:45 by Gisele Corona CMA) Housing: Apartment Are you a primary client care coordinator to a significant other at home: No Do you presently have visiting nurse or other home services: No Alcohol intake: current Alcohol intake frequency: holidays/special occasions only Comment: X-RAY PERFORMED -NO SUTURE IN ABDOMEN Patient Tobacco Use Status: Former Tobacco user Tobacco use type: Cigarette Years Smoked: since e-Cigarette/Vaping Use: Never Used Second Hand Smoke Exposure: No Use of substances other than those prescribed or required for medical reasons: No service: Yes Current occupational status: employed Current occupational exposures/hazards: No Cognitive needs: No Hearing needs: No Vision needs: No Questionnaire Thrive Questionnaire Date Thrive assessed: 11/10/21 RUDY-7 AMB Questionnaire RUDY-7 Date RUDY - 7 assessed: 05/20/23 Source: Developed by Drs. Iglesia Aguilera, Hayde Noonan, Sree Ornelas and colleagues, with an educational jenny from [employer]. Review of Systems Const Denies chills, Denies fatigue, Denies fever(s), Denies headache(s) and Denies weakness ENT Denies dizziness and Denies headache(s) Card Denies dyspnea Resp Denies cough, Denies dyspnea, Denies wheezing and Denies other (shortness of breath) Musc Denies numbness and Denies tingling Neuro Denies dizziness, Denies headache(s), Denies numbness, Denies tingling and Denies weakness Psych Denies anxiety and Denies depression Endo Denies fatigue Aller/Immun Denies wheezing Physical exam (Primary Care) Vital Signs: Last Vital Signs Temp 97.4 F 02/05/25 10:45 Pulse 80 02/05/25 10:45 Resp 15 02/05/25 10:45 BP 120/78 02/05/25 10:45 Pulse Ox 95 02/05/25 10:45 Oxygen Delivery Method Room Air 02/05/25 10:45 BMI result Body Mass Index 39.5 Tobacco/Smoking Status: Tobacco use Status Tobacco use date assessed 02/05/25 02/05/25 10:49 Patient Tobacco Use Status Former Tobacco user 02/05/25 10:45 Tobacco use type Cigarette 02/05/25 10:45 e-Cigarette/Vaping Use Never Used 02/05/25 10:45 Thrive Assessment: Date of Thrive Assessment Date Thrive assessed 11/10/21 02/05/25 10:42 Const General: well developed; No acute distress Nutritional Appearance: well nourished and obese Orientation/consciousness: patient oriented x3 HENMT Head: Yes normocephalic and Yes atraumatic Eyes General: appearance normal, both eyes and all related structures Pupils: Equal, round and reactive pupils present EOM: EOMs intact bilaterally Resp Effort & Inspection: normal respiratory effort Auscultation: clear to auscultation bilaterally Cardio Rate: regular rate Rhythm: regular rhythm Heart sounds: S1 normal heart sound present, S2 normal heart sound present, no gallops, no murmurs and no rubs Neuro General: patient oriented x3 and gait normal Cranial nerves: Yes Equal, round and reactive pupils present Psych Affect: normal affect Results AMB Hemoglobin A1c AMB Hemoglobin A1c 7.0 % Last Edit by Gisele Corona CMA on 02/05/25 10:59 Results Reviewed Results Reviewed: Laboratory Last Values Hgb A1c (Clinic) 7.0 % (4.0-6.0) H 02/05/25 10:50 Coding Level of Care Code Est Pt Level 3 (10972) Diagnoses Diet-controlled diabetes mellitus E11.9 Hematuria R31.9 Assessment & Plan Assessment & Plan (1) Diet-controlled diabetes mellitus: Code(s): E11.9 - Type 2 diabetes mellitus without complications Category: Medical Plan: A1c climbed from 6.5% to 7.0%. Goal is less than 7% Patient gained about 11 lb since October. Encouraged diet lower in sugars and starches. Encouraged weight loss and exercise as tolerated (2) Hematuria: Code(s): R31.9 - Hematuria, unspecified Category: Medical Plan: Patient was seen at the emergency department for hematuria. Imaging negative for stone and urine study positive for UTI with high white blood cell count is well. Patient still notes some discomfort. Checking urine studies again Hydrate well Orders: Orders Urine Culture Today R31.9 - Hematuria, unspecified AMB Hemoglobin A1c Today E11.9 - Type 2 diabetes mellitus without complications UA CC w/rflx Micro + Cult Today R31.9 - Hematuria, unspecified, Z00.00 - Encounter for general adult medical examination without abnormal findings Medications: Refilled amitriptyline 100 mg PO BEDTIME 30 tabs 1RF
[2025-02-05 10:45] VITALS: BP 120/78; PULSE 80; RESP 15; TEMP 36.3; O2SAT 95; BMI 39.5
== END 2025-02-05 11:45 | disposition home or self-care (01) ==
LOC: HO.HMCFM 10:38
PROVIDERS: PCP Family Medicine; Visit Provider Family Medicine
DX: E11.9 Type 2 diabetes mellitus without complications (principal); R31.9 Hematuria, unspecified

== ENCOUNTER 2025-02-05 10:37 | Outpatient (REF) | payer OTHER, SELFPAY ==
[2025-02-05 14:45] LABS: Appearance Urine Clear; Glucose Urine UA >=1000 mg/dL (Negative); PH 5.5 (5.0-9.0); Specific Gravity - Urine >= 1.030 (1.005-1.025); UMIC TRIGGER UACC YES
== END 2025-02-05 10:38 | disposition home or self-care (01) ==
LOC: HO.WFDLDS 10:37
PROVIDERS: PCP Family Medicine; Visit Provider Family Medicine
DX: Z00.00 Encounter for general adult medical examination without abnormal findings (principal); R31.9 Hematuria, unspecified; E11.9 Type 2 diabetes mellitus without complications
CPT/HCPCS: 81001; 83036; 87086; 99212

== ENCOUNTER 2025-04-23 09:32 | Outpatient (REF) | payer OTHER, SELFPAY ==
--- OUTSIDE RECORDS SUMMARY | 2025-04-23 10:08 | XMS_ITS | Clinical Summary ---
Author Organization [facility] Address [address] [place] [id number] Phone Care Team Providers Care Accelerator Technician Name Role Phone Pcp, Unknown Primary Care [...] Not on file Insurance [employer] Care Teams Accelerator Technician Relationship Specialty Start Date End Date Pcp, Unknown PCP - General 08/30/19 Additional Source Comments The information contained in this document represents components of the legal health record. It is not the complete legal health record.[facility]
== END 2025-04-23 09:33 | disposition home or self-care (01) ==
LOC: HO.HAP 09:32
PROVIDERS: Visit Provider Family Medicine
DX: Z46.1 Encounter for fitting and adjustment of hearing aid (principal); H90.3 Sensorineural hearing loss, bilateral; H93.13 Tinnitus, bilateral
CPT/HCPCS: 92593; 99499